=== PATIENT | female | born 1995 | race Caucasian/White ===

== ENCOUNTER 2023-04-14 09:17 | Day surgery (SDC) | payer MEDICAID, SELFPAY ==
[2023-04-14 09:39] VITALS: BP 115/80; PULSE 61; RESP 16; TEMP 36.6; O2SAT 96; BMI 41.1
[2023-04-14] MEDS: BUPIVACAINE 0.25% 10ML INJ 25 MG IJ (09:45)
[2023-04-14 09:46] VITALS: BP 123/79; PULSE 57; RESP 18; O2SAT 98
[2023-04-14] MEDS: LIDOCAINE 1% 5ML PF VIAL 5 ML (09:46)
[2023-04-14] MEDS: methylPREDNISolone ACETATE 80MG/ML VIAL 80 MG (09:46)
[2023-04-14 09:49] VITALS: BP 123/79; PULSE 57; RESP 18; O2SAT 98
[2023-04-14 10:00] VITALS: BP 107/57; PULSE 64; RESP 18; O2SAT 96
--- NOTE | 2023-04-14 10:21 | EXP.PAIN.PRO ---
Procedure Date: 04/14/23 Time: 09:30 Anesthesiologist:: Pascual Pandey CRNA Complications:: None Pre-procedure Diagnosis:: Chronic right elbow pain. Right lateral epicondylitis. Status post right lateral epicondylitis surgery 2020 Post-procedure Diagnosis:: Same. Indications for Procedure:: Patient is a pleasant 27-year-old female comes our clinic today for a right lateral epicondyle injection of cortisone, Marcaine, lidocaine. Patient has chronic pain over the right lateral epicondyle following right lateral tendon release 2020. Patient describes the pain as constant, dull, aching. Patient has good flexion, extension, right and left rotation of the forearm. Procedure Details:: Details of the procedure explained to the patient. The patient taken procedure and placed in sitting position. The area over the right lateral elbow was cleaned using chlorhexidine as a cleansing solution. Using a 25-gauge 1 inch needle the right lateral condyle was accessed at the point of most of the patient's pain. A solution containing 0.25% Marcaine +1% lidocaine and 40 mg of Depo-Medrol was injected after negative aspiration. Patient tolerated procedure without difficulty. There are no complications Plan and Disposition:: Patient was discharged without incident.
== END 2023-04-14 10:00 | disposition home or self-care (01) ==
PROVIDERS: PCP Emergency Medicine; Visit Provider Nurse Anesthetist, Certified Registered
DX: M77.11 Lateral epicondylitis, right elbow (principal); M25.521 Pain in right elbow; G89.29 Other chronic pain
CPT/HCPCS: 20551; J1040

== ENCOUNTER → 2023-05-01 09:00 | Outpatient (POV) | payer MEDICAID, SELFPAY ==
--- NOTE | 2023-05-01 09:25 | EXP.PAIN.SOA ---
[facility] Pain Management SOAP Note Subjective:: Patient is a pleasant 27-year-old female who presents today for follow-up right lateral epicondyle injection on 04/14/2023. We are currently treating the patient for chronic right elbow pain, right lateral epicondylitis, status post right lateral epicondylitis surgery. Today she rates her pain a 3 out of 10. Patient denies any new trauma or injury. She does state that she is had at least 50% improvement following this injection and feels like it still helping. Patient states she has been able to increase her activity with decreased pain symptoms and feels overall more functional. Patient does state that prior to this injection she had been dealing with this pain since she was a teenager. Patient states there was no specific trauma or injury that initially led to this. She states it was in and around 2020 when she went to the orthopedic doctor who did MRI with no acute findings. She states at that point then he did an EMG test that did show tendinitis and he did end up doing a elbow scope where he cleaned some of the tendon up and he did tell the patient at that time that the tendon was completely detached from the bone. Patient states in the past she is just use [id number] Tylenol and ibuprofen along with heat and ice and topicals with minimal relief. Patient is currently prescribed pregabalin 100 mg daily and [place] 10 mg 3 times a day from an outside provider. She denies any side effects from this medication. Her Shamar has been reviewed and is appropriate. Review of Systems: General: No recent weight changes, no fever, no sleep disturbances Respiratory: No cough, no shortness of air, no recurring pulmonary infections Cardiovascular/peripheral vascular: No chest pain, no palpitations, no edema, no shortness of breath Gastrointestinal: No new onset incontinence, normal bowel movements reported Genitourinary: No new onset incontinence Musculoskeletal: Right elbow pain Psychiatric: [Normal mood/affect] Neurological: [Denies weakness in extremities], [denies balance issues] Objective:: Physical Exam: General: Alert and oriented x3, no acute distress, pleasant and cooperative Lungs: Respirations even and unlabored, symmetrical chest expansion Eyes: PERRL Musculoskeletal: Flexion and extension of right elbow somewhat guarded secondary to pain, [antalgic gait noted] Neurological: Speech clear, no gross sensory deficit Assessment:: chronic right elbow pain, right lateral epicondylitis, status post right lateral epicondylitis surgery Plan:: Patient has had significant improvement following her right elbow injection and does not require any additional injection therapy. Will order the patient a compounded cream. Patient will return to clinic in 1 month for reevaluation of symptoms and plan of care. Patient has been instructed to contact the clinic with any concerns before the next appointment. Dr. Lindsey has reviewed this note and agrees with this plan of care. This note was dictated using voice recognition software and make contain errors or omissions. [facility] Disclaimer: The information contained in this section may have been updated after the patient was seen, as this information can be updated by other users. Medical History CRPS (complex regional pain syndrome type I) Diabetes Migraine Social History Smoking Status: Unknown if ever smoked alcohol intake: never current occupational status: other Travel in the last 8 weeks: None
[2023-05-01 10:02] VITALS: BP 124/72; PULSE 70; RESP 18; O2SAT 94; BMI 41.1
== END ==
LOC: SC.PAIN 09:01
PROVIDERS: Visit Provider Nurse Practitioner Family
DX: M25.521 Pain in right elbow (principal); G89.29 Other chronic pain; M77.11 Lateral epicondylitis, right elbow
CPT/HCPCS: 99212; G0463

== ENCOUNTER 2023-05-29 11:11 | Outpatient (POV) | payer MEDICAID, SELFPAY ==
[2023-05-29 11:14] VITALS: BP 178/86; PULSE 75; RESP 18; O2SAT 98; BMI 41.3
--- NOTE | 2023-05-29 11:24 | A.OFFVIS_ITS ---
[facility] Pain Management SOAP Note Subjective:: Patient is a pleasant 27-year-old female who presents today for follow-up. We are currently treating the patient for chronic right elbow pain, right lateral epicondylitis, status post right lateral epicondylitis surgery. Today she rates her pain a 6 out of 10. Patient denies any new injury or trauma. She states that she does feel like the prior injection that we did back at the very beginning of April is worn off. Patient states that she did start to experience more pain of an aching, throbbing sensation in this joint over the last week or so. She does state the pain interferes with her ability perform activities of daily living such as cooking and cleaning. Patient is interested in repeating her injection. She does also state that she does have chronic low back issues that she would like to talk about in future visits and see if we can help with that as well. Patient has tried and failed conservative therapy such as oral medication such as Tylenol and ibuprofen along with heat and ice and topicals. She does state that the compounded cream to be sent to her and at l ast visit did significantly help her symptoms. She states she has even been using this on her back. Patient is prescribed pregabalin and [place] from an outside provider. Her Shamar has been reviewed and is appropriate. Review of Systems: General: No recent weight changes, no fever, no sleep disturbances Respiratory: No cough, no shortness of air, no recurring pulmonary infections Cardiovascular/peripheral vascular: No chest pain, no palpitations, no edema, no shortness of breath Gastrointestinal: No new onset incontinence, normal bowel movements reported Genitourinary: No new onset incontinence Musculoskeletal: Right elbow pain, low back pain Psychiatric: [Normal mood/affect] Neurological: [Denies weakness in extremities], [denies balance issues] Objective:: Physical Exam: General: Alert and oriented x3, no acute distress, pleasant and cooperative Lungs: Respirations even and unlabored, symmetrical chest expansion Eyes: PERRL Musculoskeletal: Flexion and extension of right elbow somewhat guarded secondary to pain Neurological: Speech clear, no gross sensory deficit Assessment:: Right elbow pain, right lateral epicondylitis, status post right lateral epicondylitis surgery, low back pain Plan:: Patient is experiencing worsening pain in her right elbow with limited range of motion. Patient did previously have a lateral epicondyles injection that did provide 50% improvement lasting approximately a month and a half. I have disc ussed with the patient that she may benefit from a repeat injection. Risk and benefits were discussed with the patient and she would like to proceed forward with this plan of care. Patient has tried and failed conservative therapy for her right elbow. I also discussed with the patient in future we will look at her low back symptoms and evaluate if injection therapy may be beneficial. Patient will be scheduled for a right lateral epicondyle injection. Patient has been instructed to contact the clinic with any concerns before the next appointment. Dr. Lindsey has reviewed this note and agrees with this plan of care. This note was dictated using voice recognition software and make contain errors or omissions. [facility] Disclaimer: The information contained in this section may have been updated after the patient was seen, as this information can be updated by other users. Medical History Migraine Diabetes CRPS (complex regional pain syndrome type I) Social History (Updated 05/01/23 @ 09:29 by Ena Parsons APRN) Smoking Status: Unknown if ever smoked alcohol intake: never current occupational status: other Travel in the last 8 weeks: None
== END 2023-05-29 23:59 ==
LOC: SC.PAIN 11:12
PROVIDERS: Visit Provider Nurse Practitioner Family
DX: M77.11 Lateral epicondylitis, right elbow (principal); M25.521 Pain in right elbow; M54.50 Low back pain, unspecified
CPT/HCPCS: 99212; G0463

== ENCOUNTER 2023-06-23 09:04 | Day surgery (SDC) | payer MEDICAID, SELFPAY ==
[2023-06-23 09:26] VITALS: BP 139/74; PULSE 69; RESP 18; TEMP 36.8; O2SAT 99; BMI 41.1
[2023-06-23] MEDS: BUPIVACAINE 0.25% 10ML INJ 25 MG IJ (09:49)
[2023-06-23] MEDS: LIDOCAINE 1% 5ML PF VIAL 5 ML (09:49)
[2023-06-23] MEDS: methylPREDNISolone ACETATE 80MG/ML VIAL 80 MG (09:49)
[2023-06-23 09:50] VITALS: BP 114/70; PULSE 70; RESP 18; O2SAT 98
[2023-06-23 09:52] VITALS: BP 114/70; PULSE 69; RESP 18; O2SAT 98
[2023-06-23 10:00] VITALS: BP 130/84; PULSE 71; RESP 18; O2SAT 94
--- NOTE | 2023-06-23 10:00 | EXP.PAIN.PRO ---
Procedure Date: 06/23/23 Time: 09:50 Anesthesiologist:: Pascual Pandey CRNA Complications:: None Pre-procedure Diagnosis:: Right lateral epicondylitis. Chronic right lateral elbow pain. Post-procedure Diagnosis:: Same. Indications for Procedure:: Patient is a very pleasant 27-year-old female comes our clinic today for right lateral epicondylitis injection of lidocaine and steroid. Patient is status post 1 round of injections in the same area. She reports 2 to 3 weeks of significant improvement. After which time the pain returned. She rates her pain 6/10. Patient is also status post post right tendon release 2021. Procedure Details:: Details of the procedure explained to the patient. The patient taken procedure room placed in the sitting position. The area of the right lateral elbow was cleaned using chlorhexidine as a cleansing solution Using a 25-gauge inch and half needle the right lateral epicondyle was accessed with ease. This area was marked specifically by the patient in terms of where the elbow is most painful. After negative aspiration 6 cc of 1% lidocaine +40 mg of Depo-Medrol was injected. Patient tolerated procedure without difficulty. There are no complications. Plan and Disposition:: Patient was discharged without incident.
== END 2023-06-23 10:00 | disposition home or self-care (01) ==
PROVIDERS: Visit Provider Nurse Anesthetist, Certified Registered
DX: M77.11 Lateral epicondylitis, right elbow (principal); M25.521 Pain in right elbow; G89.29 Other chronic pain
CPT/HCPCS: 20605; J1010

== ENCOUNTER 2023-07-08 11:31 | Outpatient (POV) | payer MEDICAID, SELFPAY ==
[2023-07-08 11:41] VITALS: BP 126/71; PULSE 81; RESP 18; O2SAT 95; BMI 41.9
--- NOTE | 2023-07-08 12:10 | EXP.PAIN.SOA ---
[facility] Pain Management SOAP Note Subjective:: Patient is a pleasant 27-year-old female who presents today for follow-up of right lateral epicondylitis injection on 06/23/2023. Today she rates her pain a 6 out of 10. Patient states that she did have at least 70% improvement following this injection and it did last up until the last couple of days. Patient states while it was working she had significant improvement with increased function and decreased pain. Patient does state that her pain is back to her baseline today and states it is a aching, throbbing sensation that is worse with increased activity or ambulation. Patient has still been using her compounded cream with improvement. Patient does state that she would like to try for another injection because it did help so well. Patient states that her pain does interfere with her ability to perform activities of daily living such as cooking and cleaning. Patient has tried Tylenol and ibuprofen along with heat and ice and topicals with minimal improvement. Patient has also tried exercise and stretching with no additional relief. Patient is prescribed pregabalin and [place] from an outside provider. Her Shamar has been reviewed and is appropriate. Review of Systems: General: No recent weight changes, no fever, no sleep disturbances Respiratory: No cough, no shortness of air, no recurring pulmonary infections Cardiovascular/peripheral vascular: No chest pain, no palpitations, no edema, no shortness of breath Gastrointestinal: No new onset incontinence, normal bowel movements reported Genitourinary: No new onset incontinence Musculoskeletal: Right elbow pain Psychiatric: [Normal mood/affect] Neurological: [Denies weakness in extremities], [denies balance issues] Objective:: Physical Exam: General: Alert and oriented x3, no acute distress, pleasant and cooperative Lungs: Respirations even and unlabored, symmetrical chest expansion Eyes: PERRL Musculoskeletal: Flexion and extension of right elbow somewhat guarded secondary to pain Neurological: Speech clear, no gross sensory deficit Assessment:: Right elbow pain, right lateral epicondylitis, status post right lateral epicondylitis surgery, low back pain Plan:: Patient is experiencing worsening pain with limited range of motion of her right elbow. Patient did get 70% relief with her last injection for this pain that did last for 2 weeks. I have discussed with patient that she may benefit from repeat right lateral epicondylitis injection. Risk and benefits were discussed with the patient and she would like to proceed forward with this plan of care. We will schedule the patient for a repeat right lateral epicondylitis injection. Patient has been instructed to contact the clinic with any concerns before the next appointment. Dr. Lindsey has reviewed this note and agrees with this plan of care. This note was dictated using voice recognition software and make contain errors or omissions. [facility] Disclaimer: The information contained in this section may have been updated after the patient was seen, as this information can be updated by other users. Medical History Migraine Diabetes CRPS (complex regional pain syndrome type I) Social History Smoking Status: Unknown if ever smoked alcohol intake: never current occupational status: other Travel in the last 8 weeks: None
== END 2023-07-08 23:59 | disposition home or self-care (01) ==
LOC: SC.PAIN 11:31
PROVIDERS: Visit Provider Nurse Practitioner Family
DX: M77.11 Lateral epicondylitis, right elbow (principal); M25.521 Pain in right elbow; M54.50 Low back pain, unspecified
CPT/HCPCS: 99212; G0463

== ENCOUNTER 2023-08-11 12:28 | Day surgery (SDC) | payer MEDICAID, SELFPAY ==
[2023-08-11 13:15] VITALS: BP 129/74; PULSE 64; RESP 18; O2SAT 97; BMI 41.8
[2023-08-11] MEDS: LIDOCAINE 1% 5ML PF VIAL 5 ML (13:22)
[2023-08-11] MEDS: methylPREDNISolone ACETATE 80MG/ML VIAL 80 MG (13:22)
[2023-08-11] MEDS: BUPIVACAINE 0.25% 10ML INJ 25 MG IJ (13:22)
[2023-08-11 13:23] VITALS: BP 114/76; PULSE 68; RESP 18; O2SAT 98
[2023-08-11 13:25] VITALS: BP 114/76; PULSE 68; RESP 18; O2SAT 98
--- NOTE | 2023-08-11 13:29 | EXP.PAIN.PRO ---
Procedure Date: 08/11/23 Time: 13:10 Anesthesiologist:: Pascual Pandey CRNA Complications:: None Pre-procedure Diagnosis:: Chronic right lateral epicondylitis. Post-procedure Diagnosis:: Same. Indications for Procedure:: Patient is a very pleasant 28-year-old female comes our clinic today for repeat right epicondylitis injection of cortisone and numbing medicine. Patient describes right lateral elbow pain is constant, dull, aching. She had significant improvement in terms of her right elbow pain after her last injection in the same location. She describes the right lateral elbow pain is constant, dull, aching. This pain affects her gastroenterologist in the right hand. She rates her pain 7/10. Procedure Details:: Details of the procedure explained to the patient. The patient taken procedure room placed in the sitting position. The area of the right lateral elbow was cleaned using chlorhexidine as a cleansing solution Using a 25-gauge inch and half needle the right lateral epicondyle was accessed with ease. This area was marked specifically by the patient in terms of where the elbow is most painful. After negative aspiration 6 cc of 1% lidocaine +40 mg of Depo-Medrol was injected. Patient tolerated procedure without difficulty. There are no complications. Plan and Disposition:: Patient was discharged without incident.
[2023-08-11 13:30] VITALS: BP 124/83; PULSE 68; RESP 18; O2SAT 97
== END 2023-08-11 13:32 | disposition home or self-care (01) ==
PROVIDERS: PCP Emergency Medicine; Visit Provider Nurse Anesthetist, Certified Registered
DX: M77.11 Lateral epicondylitis, right elbow (principal)
CPT/HCPCS: 20551; J1010

== ENCOUNTER 2023-09-24 14:04 | Outpatient (POV) | payer MEDICAID, SELFPAY ==
[2023-09-24 14:29] VITALS: BP 125/72; PULSE 63; RESP 18; O2SAT 100; BMI 41.0
--- NOTE | 2023-09-24 14:49 | A.OFFVIS_ITS ---
[facility] Disclaimer: The information contained in this section may have been updated after the patient was seen, as this information can be updated by other users. Medical History (Updated 09/24/23 @ 14:51 by Ena Parsons APRN) Migraine Diabetes CRPS (complex regional pain syndrome type I) Social History Smoking Status: Unknown if ever smoked alcohol intake: never current occupational status: other Travel in the last 8 weeks: None PM Subjective & Objective Subjective Subjective:: Patient is a pleasant 28-year-old female who presents today for follow-up of right epicondylitis injection on 08/11/2023. Today she rates her pain a 3 out of 10. She states she has had at least 70% improvement following this injection and feels like it still continue to provide additional relief. She states she is able to increase her activity with overall decreased pain. Patient does state that she is still having chronic low back pain and would like to see about ordering updated imaging. Patient states the pain is fairly constant and does interfere with her ability to perform activities of daily living. Patient does state that she is in the final processes of getting a gastric sleeve surgery. She states that they are thinking about getting it done in November and that she has her last 1 year and coming up. Her Shamar has been reviewed and is appropriate. Review of Systems: General: No recent weight changes, no fever, no sleep disturbances Respiratory: No cough, no shortness of air, no recurring pulmonary infections Cardiovascular/peripheral vascular: No chest pain, no palpitations, no edema, no shortness of breath Gastrointestinal: No new onset incontinence, normal bowel movements reported Genitourinary: No new onset incontinence Musculoskeletal: Low back pain Psychiatric: [Normal mood/affect] Neurological: [Denies weakness in extremities], [denies balance issues] Pain at rest (0-10 scale): 3 Objective Objective:: Physical Exam: General: Alert and oriented x3, no acute distress, pleasant and cooperative Lungs: Respirations even and unlabored, symmetrical chest expansion Eyes: PERRL Musculoskeletal: Flexion and extension of lumbar [spine] somewhat guarded secondary to pain, [antalgic gait noted] Neurological: Speech clear, no gross sensory deficit Has patient had previous pain injection?: Yes Percent improvement in pain since last injection: 70% Conservative treatment options previously tried: Home exercise plan Length of treatment: Longer than 6 weeks Meds Home Medications and Allergies Home Medications Medication Instructions Recorded Confirmed Type albuterol sulfate 2.5 mg/3 mL 2.5 mg inhalation DAILY PRN SOB 04/06/23 09/24/23 History (0.083 %) solution for nebulization albuterol sulfate 90 mcg/actuation 2 puff inhalation QID 04/06/23 09/24/23 History aerosol inhaler (Ventolin HFA) budesonide-formoterol HFA 160 2 puff inhalation BID 04/06/23 09/24/23 History mcg-4.5 mcg/actuation aerosol inhaler (Symbicort) bupropion HCl 100 mg tablet,12 hr 100 mg PO DAILY 04/06/23 09/24/23 History sustained-release cyclobenzaprine 10 mg tablet 10 mg PO TID 04/06/23 09/24/23 History desvenlafaxine succinate 50 mg 50 mg PO DAILY 04/06/23 09/24/23 History tablet,extended release 24 hr hydrocodone 5 mg-acetaminophen 325 1 tab PO Q4H PRN Pain 04/06/23 09/24/23 History mg tablet hydroxyzine HCl 50 mg tablet 50 mg PO HS 04/06/23 09/24/23 History ibuprofen 400 mg tablet 400 mg PO TIDP PRN Pain 04/06/23 09/24/23 History levocetirizine 5 mg tablet 5 mg PO DAILY 04/06/23 09/24/23 History metformin 500 mg tablet 500 mg PO QID 04/06/23 09/24/23 History methenamine mandelate 1 gram tablet 1 g PO BID 04/06/23 09/24/23 History omeprazole 40 mg capsule,delayed 40 mg PO BID 04/06/23 09/24/23 History release ondansetron 4 mg disintegrating 4 mg PO Q6H PRN Nausea 04/06/23 09/24/23 History tablet pregabalin 100 mg capsule 100 mg PO DAILY 04/06/23 09/24/23 History pregabalin 150 mg capsule 150 mg PO DAILY 04/06/23 09/24/23 History pregabalin 200 mg capsule 200 mg PO HS 04/06/23 09/24/23 History propranolol 10 mg tablet 10 mg PO BID 04/06/23 09/24/23 History tiotropium bromide 1.25 2 puff inhalation BID 04/06/23 09/24/23 History mcg/actuation mist for inhalation topiramate 100 mg tablet 100 mg PO DAILY 04/06/23 09/24/23 History New Prescriptions to Start Prescriptions: Allergies Allergy/AdvReac Type Severity Reaction Status Date / Time amoxicillin AdvReac Vomiting Verified 06/09/23 13:01 ampicillin AdvReac Verified 06/09/23 13:01 clarithromycin AdvReac Vomiting Verified 06/09/23 13:01 clavulanic acid AdvReac Vomiting Verified 06/09/23 13:01 erythromycin base AdvReac Verified 06/09/23 13:01 potassium AdvReac Vomiting Verified 06/09/23 13:01 sulfamethoxazole AdvReac Verified 06/09/23 13:01 Assessment and Plan *Assessment and plan (1) Low back pain: Status: Acute Qualifiers: Chronicity: chronic Back pain laterality: bilateral Sciatica presence: without sciatica Qualified Code(s): M54.50 - Low back pain, unspecified; G89.29 - Other chronic pain Category: Medical Code(s): M54.50 - Low back pain, unspecified Plan Patient has had significant improvement following her elbow injection and does not require any additional injection therapy at this time. I will order x-ray imaging as well as MRI without contrast of her lumbar spine to follow. Patient will return to clinic in 1 month for reevaluation of symptoms and plan of care. Patient has been instructed to contact the clinic with any concerns before the next appointment. Dr. Lindsey has reviewed this note and agrees with this plan of care. This note was dictated using voice recognition software and make contain errors or omissions.
--- NOTE | 2023-09-24 14:56 | XR_ITS ---
FINAL REPORT CLINICAL HISTORY: LBP FINDINGS: AP, lateral, and oblique views of the lumbar spine were obtained. There is no acute fracture or acute malalignment. Vertebral body height is preserved. No acute paraspinal abnormality is identified. IMPRESSION: No acute osseous abnormalities lumbar spine. Reviewed, Interpreted and Dictated by Estephania Rodrigez MD Transcribed by Libby Suarez Authenticated and [facility]
== END 2023-09-24 23:59 | disposition home or self-care (01) ==
LOC: SC.PAIN 14:49 → RAD 14:51
PROVIDERS: Visit Provider Nurse Practitioner Family
DX: M54.50 Low back pain, unspecified (principal); G89.29 Other chronic pain
CPT/HCPCS: 72110; 99212; G0463

== ENCOUNTER 2023-12-03 12:50 | Outpatient (POV) | payer MEDICAID, SELFPAY ==
[2023-12-03 13:23] VITALS: BP 116/70; PULSE 68; RESP 18; O2SAT 97; BMI 40.6
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
== END 2023-12-03 23:59 | disposition home or self-care (01) ==
LOC: SC.PAIN 12:51
PROVIDERS: Visit Provider Nurse Practitioner Family
DX: M46.1 Sacroiliitis, not elsewhere classified (principal); Z73.89 Other problems related to life management difficulty; Z79.899 Other long term (current) drug therapy
CPT/HCPCS: 99212; G0463

== ENCOUNTER 2023-12-29 09:38 | Day surgery (SDC) | payer MEDICAID, SELFPAY ==
[2023-12-29 10:09] VITALS: BMI 39.4
[2023-12-29 10:21] LABS: Urine Pregnancy, HCG Qual. Negative (Negative)
[2023-12-29 10:26] VITALS: BP 104/68; PULSE 74; RESP 16; TEMP 36.7; O2SAT 95; BMI 39.4
[2023-12-29] MEDS: LIDOCAINE 1% 5ML PF VIAL 5 ML (10:42)
[2023-12-29] MEDS: methylPREDNISolone ACETATE 80MG/ML VIAL 80 MG (10:42)
[2023-12-29] MEDS: BUPIVACAINE 0.25% 10ML INJ 25 MG IJ (10:42)
--- NOTE | 2023-12-29 10:54 | P.PCN_ITS ---
Procedure Date: 12/29/23 Time: 10:40 Anesthesiologist:: Pascual Pandey CRNA Complications:: None Pre-procedure Diagnosis:: Bilateral sacroiliitis Post-procedure Diagnosis:: Same Indications for Procedure:: Patient is a very pleasant 28-year-old female comes our clinic today for bilateral sacroiliac joint injections of cortisone and local anesthetic. Patient describes low lumbar back pain off the midline bilaterally. Bilateral posterior hip pain. Difficulty transitioning from sitting to standing. Difficulty with ambulation. Difficulty with sitting for any length of time. She rates her pain 8/10. Procedure Details:: Procedure: Bilateral sacroiliac joint injections under fluoroscopy Informed consent was obtained and the risks and benefits of the procedure were explained to the patient.~ The patient was taken to the procedure room and noninvasive monitors were placed including a noninvasive blood pressure cuff and pulse oximeter.~ The patient was placed prone on the procedure table. Both hips were cleansed using Betadine as a cleansing solution. C-arm fluoroscopy was used to view the right sacroiliac joint.~ The skin and subcutaneous tissues were anesthetized using lidocaine 1.5% and a 25-gauge needle.~ After this, a 22-gauge spinal needle was inserted under fluoroscopic guidance into the inferior aspect of the right sacroiliac joint.~ Omnipaque dye was injected and good spread was seen throughout the joint.~ After this, approximately 5 mL of bupivacaine, 0.25% and Depo-Medrol, 40 mg was incrementally injected into the right sacroiliac joint. We then moved to the left sacroiliac joint.~ The skin and subcutaneous tissues were anesthetized using lidocaine 1.5% and a 25-gauge needle.~ After this, a 22- gauge spinal needle was inserted under fluoroscopic guidance into the inferior aspect of the left sacroiliac joint.~ Omnipaque dye was injected and good spread was seen throughout the joint. After this, approximately 5 mL of bupivacaine, 0.25% and Depo-Medrol, 40 mg was incrementally injected into the left sacroiliac joint.~ The patient tolerated the procedure well with no complications. The patient was observed in the Pain Clinic and then was discharged home neurologically intact. Plan and Disposition:: Patient was discharged without incident.
[2023-12-29 11:02] VITALS: BP 102/65; PULSE 63; RESP 16; O2SAT 96
== END 2023-12-29 11:02 | disposition home or self-care (01) ==
PROVIDERS: Visit Provider Nurse Anesthetist, Certified Registered
DX: M46.1 Sacroiliitis, not elsewhere classified (principal)
CPT/HCPCS: 27096; 81025; G0260; J1010

== ENCOUNTER 2024-01-13 14:52 | Outpatient (POV) | payer MEDICAID, SELFPAY ==
[2024-01-13 15:16] VITALS: BP 115/67; PULSE 68; RESP 16; O2SAT 98; BMI 38.7
--- NOTE | 2024-01-13 15:50 | A.OFFVIS_ITS ---
[facility] Disclaimer: The information contained in this section may have been updated after the patient was seen, as this information can be updated by other users. Medical History (Updated 01/13/24 @ 15:52 by Ena Parsons APRN) Migraine Diabetes CRPS (complex regional pain syndrome type I) Social History Smoking Status: Unknown if ever smoked alcohol intake: never current occupational status: other Travel in the last 8 weeks: None PM Subjective & Objective Subjective Subjective:: Patient is a pleasant 28-year-old female who presents today for follow-up of bilateral SI injections on 12/29/2023. Today she rates her pain a 3 out of 10 however states that her pain will go up to at least a 5 out of 10 or 10 when it is severe. Patient denies any new falls or injuries from our last visit. She does state that the injections did not seem to really help. She states that she still has significant soreness following this and may have even made her symptoms worse. Patient does state that she is starting to experience more weakness into her bilateral lower extremities. She does describe it as an aching, throbbing sensation with some numbness and tingling. Patient does state the pain is interfering with her ability perform activities of daily living such as cooking and cleaning. Patient is interested in additional injection therapy if possible. Patient does currently use pregabalin along with [place] from an outside provider. Patient is currently managed on Flexeril however states that this only helps make her sleepy. Patient does have a history of altered kidney function and cannot tolerate NSAIDs. Her Shamar has been reviewed and is appropriate. Review of Systems: General: No recent weight changes, no fever, no sleep disturbances Respiratory: No cough, no shortness of air, no recurring pulmonary infections Cardiovascular/peripheral vascular: No chest pain, no palpitations, no edema, no shortness of breath Gastrointestinal: No new onset incontinence, normal bowel movements reported Genitourinary: No new onset incontinence Musculoskeletal: Low back pain, bilateral leg weakness Psychiatric: [Normal mood/affect] Neurological: [Denies weakness in extremities], [denies balance issues] Pain at rest (0-10 scale): 5 Objective Objective:: Physical Exam: General: Alert and oriented x3, no acute distress, pleasant and cooperative Lungs: Respirations even and unlabored, symmetrical chest expansion Eyes: PERRL Musculoskeletal: Flexion and extension of lumbar [spine] somewhat guarded secondary to pain, [antalgic gait noted] positive leg raise Neurological: Speech clear, no gross sensory deficit Has patient had previous pain injection?: Yes Percent improvement in pain since last injection: Minimal Conservative treatment options previously tried: Home exercise plan Length of treatment: Longer than 12 weeks Meds Home Medications and Allergies Home Medications ?Medication ?Instructions ?Recorded ?Confirmed ?Type albuterol sulfate 2.5 mg/3 mL 2.5 mg inhalation DAILY PRN SOB 04/06/23 01/13/24 History (0.083 %) solution for nebulization albuterol sulfate 90 mcg/actuation 2 puff inhalation QID 04/06/23 01/13/24 History aerosol inhaler (Ventolin HFA) budesonide-formoterol HFA 160 2 puff inhalation BID 04/06/23 01/13/24 History mcg-4.5 mcg/actuation aerosol inhaler (Symbicort) bupropion HCl 100 mg tablet,12 hr 100 mg PO DAILY 04/06/23 01/13/24 History sustained-release cyclobenzaprine 10 mg tablet 10 mg PO TID 04/06/23 01/13/24 History desvenlafaxine succinate 50 mg 50 mg PO DAILY 04/06/23 01/13/24 History tablet,extended release 24 hr hydrocodone 5 mg-acetaminophen 325 1 tab PO Q4H PRN Pain 04/06/23 01/13/24 History mg tablet hydroxyzine HCl 50 mg tablet 50 mg PO HS 04/06/23 01/13/24 History ibuprofen 400 mg tablet 400 mg PO TIDP PRN Pain 04/06/23 01/13/24 History levocetirizine 5 mg tablet 5 mg PO DAILY 04/06/23 01/13/24 History metformin 500 mg tablet 500 mg PO QID 04/06/23 01/13/24 History methenamine mandelate 1 gram tablet 1 g PO BID 04/06/23 01/13/24 History omeprazole 40 mg capsule,delayed 40 mg PO BID 04/06/23 01/13/24 History release ondansetron 4 mg disintegrating 4 mg PO Q6H PRN Nausea 04/06/23 01/13/24 History tablet pregabalin 100 mg capsule 100 mg PO DAILY 04/06/23 01/13/24 History pregabalin 150 mg capsule 150 mg PO DAILY 04/06/23 01/13/24 History pregabalin 200 mg capsule 200 mg PO HS 04/06/23 01/13/24 History propranolol 10 mg tablet 10 mg PO BID 04/06/23 01/13/24 History tiotropium bromide 1.25 2 puff inhalation BID 04/06/23 01/13/24 History mcg/actuation mist for inhalation topiramate 100 mg tablet 100 mg PO DAILY 04/06/23 01/13/24 History New Prescriptions to Start Prescriptions: Allergies Allergy/AdvReac Type Severity Reaction Status Date / Time amoxicillin AdvReac Vomiting Verified 06/09/23 13:01 ampicillin AdvReac Verified 06/09/23 13:01 clarithromycin AdvReac Vomiting Verified 06/09/23 13:01 clavulanic acid AdvReac Vomiting Verified 06/09/23 13:01 erythromycin base AdvReac Verified 06/09/23 13:01 potassium AdvReac Vomiting Verified 06/09/23 13:01 sulfamethoxazole AdvReac Verified 06/09/23 13:01 Assessment and Plan *Assessment and plan (1) Bilateral leg weakness: Status: Acute Category: Medical Code(s): R29.898 - Other symptoms and signs involving the musculoskeletal system (2) Lumbar radiculopathy: Status: Acute Category: Medical Code(s): M54.16 - Radiculopathy, lumbar region (3) Low back pain: Status: Acute Qualifiers: Chronicity: chronic Back pain laterality: bilateral Sciatica presence: without sciatica Qualified Code(s): M54.50 - Low back pain, unspecified; G89.29 - Other chronic pain Category: Medical Code(s): M54.50 - Low back pain, unspecified Plan Patient is experiencing worsening pain in her low back with bilateral leg weakness and some numbness and tingling. Patient did have limited range of motion of her lumbar spine with positive leg raise during today's exam. I did discuss with the patient that she may benefit from lumbar epidural steroid injection. Risk and benefits were discussed with patient and she would like to proceed forward with this plan of care. Patient is not on any current blood thinners. Patient has tried and failed conservative therapy including continued at home stretching exercise for longer than 12 weeks. I will send in a 2-week supply of baclofen 10 mg 3 times daily. Patient was counseled to discontinue her Flexeril while taking this medication. Patient will be scheduled for an LESI L4-L5 under fluoroscopy. Patient has been instructed to contact the clinic with any concerns before the next appointment. Dr. Lindsey has reviewed this note and agrees with this plan of care. This note was dictated using voice recognition software and make contain errors or omissions. All injections are used with Lidocaine or Bupivacaine and Depo Medrol.
== END 2024-01-13 23:59 | disposition home or self-care (01) ==
PROVIDERS: PCP Emergency Medicine; Visit Provider Nurse Practitioner Family
DX: R29.898 Other symptoms and signs involving the musculoskeletal system (principal); M54.16 Radiculopathy, lumbar region; M54.50 Low back pain, unspecified; G89.29 Other chronic pain; Z73.89 Other problems related to life management difficulty; Z79.899 Other long term (current) drug therapy
CPT/HCPCS: 99212; G0463

== ENCOUNTER 2024-02-09 11:20 | Day surgery (SDC) | payer MEDICAID, SELFPAY ==
[2024-02-09 11:39] VITALS: BP 114/67; PULSE 64; RESP 16; TEMP 36.6; O2SAT 95; BMI 37.5
[2024-02-09 11:45] LABS: POC Glucose,Bedside 92 (70-110)
[2024-02-09] MEDS: methylPREDNISolone ACETATE 80MG/ML VIAL 80 MG (11:50)
--- NOTE | 2024-02-09 11:53 | EXP.PAIN.PRO ---
Procedure Date: 02/09/24 Time: 11:40 Anesthesiologist:: Pascual Pandey CRNA Complications:: None Pre-procedure Diagnosis:: Degenerative disc lumbar spine multilevels. Lumbar radiculopathy. Post-procedure Diagnosis:: Same. Indications for Procedure:: Patient is a pleasant 28-year-old female comes our clinic today for lumbar epidural steroid injection at the L4-5 level. Patient describes low lumbar back pain as constant, dull, aching. Patient also reports bilateral hip and leg radicular symptoms. She rates her pain 5/10. Procedure Details:: Procedure: Lumbar epidural steroid injection under fluoroscopy Informed consent was obtained and the risks and benefits of the procedure were explained to the patient. The patient was taken to the procedure room and noninvasive monitors placed, including noninvasive blood pressure cuff and pulse oximeter. The back was viewed using C-arm Fluoroscopy and prepped using Chloraprep as a cleansing solution and the L4-L5 interspace was palpated. Skin and subcutaneous tissues were anesthetized using lidocaine 1.5% and a 25-gauge needle. After this, an 18-gauge Touhy epidural needle was placed into the L4-L5 interspace and advanced using fluoroscopic guidance and loss of resistance to air until the epidural space was encountered. After confirmation of needle placement in the epidural space, with dye, a solution containing normal saline, 3 mL and Depo-Medrol 80 mg were incrementally injected into the lumbar epidural space. The patient tolerated the procedure well with no complications. The patient was observed in the Pain Clinic and then discharged home neurologically intact. Plan and Disposition:: Patient was discharged without incident.
[2024-02-09 11:55] VITALS: BP 118/66; PULSE 64; RESP 16; O2SAT 100
== END 2024-02-09 11:55 | disposition home or self-care (01) ==
PROVIDERS: PCP Emergency Medicine; Visit Provider Nurse Anesthetist, Certified Registered
DX: M51.16 Intervertebral disc disorders with radiculopathy, lumbar region (principal)
CPT/HCPCS: 62323; 82962; J1010

== ENCOUNTER 2024-03-24 13:51 | Outpatient (POV) | payer MEDICAID, SELFPAY ==
[2024-03-24 14:07] VITALS: BP 112/71; PULSE 66; RESP 18; O2SAT 97; BMI 38.0
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
== END 2024-03-24 23:59 | disposition home or self-care (01) ==
PROVIDERS: PCP Emergency Medicine; Visit Provider Nurse Practitioner Family
DX: M54.16 Radiculopathy, lumbar region (principal); M54.50 Low back pain, unspecified; G89.29 Other chronic pain; M54.2 Cervicalgia; Z73.89 Other problems related to life management difficulty; Z79.899 Other long term (current) drug therapy
CPT/HCPCS: 99212; G0463

== ENCOUNTER 2024-05-05 14:29 | Outpatient (POV) | payer MEDICAID, SELFPAY ==
--- NOTE | 2024-05-05 14:50 | A.OFFVIS_ITS ---
[facility] Disclaimer: The information contained in this section may have been updated after the patient was seen, as this information can be updated by other users. Medical History (Updated 03/24/24 @ 14:20 by Ena Parsons APRN) Migraine Diabetes CRPS (complex regional pain syndrome type I) Social History Smoking Status: Unknown if ever smoked alcohol intake: never current occupational status: other Travel in the last 8 weeks: None PM Subjective & Objective Subjective Subjective:: Patient is a pleasant 28-year-old female who presents today for follow-up. Today she rates her pain a 5 out of 10. She denies any new trauma or injury. She does state that the methocarbamol that we sent in at her last visit did seem to help some and denies any side effects. Patient was sent methocarbamol 500 mg 3 times a day. Patient would like refills. Patient was also submitted for a MRI of her lumbar spine however was denied due to not having any recent physical therapy. We did send in a new order of physical therapy however she states when she called down there they said they would call her back and she has not heard back. Patient is still using her compounded cream. She states this continues to help. Patient did have a lumbar epidural of L4-L5 back in February that did provide significant relief of at least 50% and she states that it is just now starting to come back however feels like it is still manageable. Her Shamar has been reviewed and is appropriate. Review of Systems: General: No recent weight changes, no fever, no sleep disturbances Respiratory: No cough, no shortness of air, no recurring pulmonary infections Cardiovascular/peripheral vascular: No chest pain, no palpitations, no edema, no shortness of breath Gastrointestinal: No new onset incontinence, normal bowel movements reported Genitourinary: No new onset incontinence Musculoskeletal: Low back pain, neck pain Psychiatric: [Normal mood/affect] Neurological: [Denies weakness in extremities], [denies balance issues] Pain at rest (0-10 scale): 5 Objective Objective:: Physical Exam: General: Alert and oriented x3, no acute distress, pleasant and cooperative Lungs: Respirations even and unlabored, symmetrical chest expansion Eyes: PERRL Musculoskeletal: Flexion and extension of lumbar [spine] somewhat guarded secondary to pain, [antalgic gait noted] Neurological: Speech clear, no gross sensory deficit Has patient had previous pain injection?: No Conservative treatment options previously tried: Home exercise plan Length of treatment: Longer than 12-week Meds Home Medications and Allergies Home Medications ?Medication ?Instructions ?Recorded ?Confirmed ?Type albuterol sulfate 2.5 mg/3 mL 2.5 mg inhalation DAILY PRN SOB 04/06/23 03/24/24 History (0.083 %) solution for nebulization albuterol sulfate 90 mcg/actuation 2 puff inhalation QID 04/06/23 03/24/24 History aerosol inhaler (Ventolin HFA) budesonide-formoterol HFA 160 2 puff inhalation BID 04/06/23 03/24/24 History mcg-4.5 mcg/actuation aerosol inhaler (Symbicort) bupropion HCl 100 mg tablet,12 hr 100 mg PO DAILY 04/06/23 03/24/24 History sustained-release cyclobenzaprine 10 mg tablet 10 mg PO TID 04/06/23 03/24/24 History desvenlafaxine succinate 50 mg 50 mg PO DAILY 04/06/23 03/24/24 History tablet,extended release 24 hr hydrocodone 5 mg-acetaminophen 325 1 tab PO Q4H PRN Pain 04/06/23 03/24/24 History mg tablet hydroxyzine HCl 50 mg tablet 50 mg PO HS 04/06/23 03/24/24 History ibuprofen 400 mg tablet 400 mg PO TIDP PRN Pain 04/06/23 03/24/24 History levocetirizine 5 mg tablet 5 mg PO DAILY 04/06/23 03/24/24 History metformin 500 mg tablet 500 mg PO QID 04/06/23 03/24/24 History methenamine mandelate 1 gram tablet 1 g PO BID 04/06/23 03/24/24 History omeprazole 40 mg capsule,delayed 40 mg PO BID 04/06/23 03/24/24 History release ondansetron 4 mg disintegrating 4 mg PO Q6H PRN Nausea 04/06/23 03/24/24 History tablet pregabalin 100 mg capsule 100 mg PO DAILY 04/06/23 03/24/24 History pregabalin 150 mg capsule 150 mg PO DAILY 04/06/23 03/24/24 History pregabalin 200 mg capsule 200 mg PO HS 04/06/23 03/24/24 History propranolol 10 mg tablet 10 mg PO BID 04/06/23 03/24/24 History tiotropium bromide 1.25 2 puff inhalation BID 04/06/23 03/24/24 History mcg/actuation mist for inhalation topiramate 100 mg tablet 100 mg PO DAILY 04/06/23 03/24/24 History baclofen 10 mg tablet See Rx Instructions .Route 02/11/24 03/24/24 Rx .COMPLEX #90 tabs methocarbamol 500 mg tablet 500 mg PO TID #42 tabs 03/24/24 Rx New Prescriptions to Start Prescriptions: Allergies Allergy/AdvReac Type Severity Reaction Status Date / Time amoxicillin AdvReac Vomiting Verified 06/09/23 13:01 ampicillin AdvReac Verified 06/09/23 13:01 clarithromycin AdvReac Vomiting Verified 06/09/23 13:01 clavulanic acid AdvReac Vomiting Verified 06/09/23 13:01 erythromycin base AdvReac Verified 06/09/23 13:01 potassium AdvReac Vomiting Verified 06/09/23 13:01 sulfamethoxazole AdvReac Verified 06/09/23 13:01 Assessment and Plan *Assessment and plan (1) Low back pain: Status: Acute Qualifiers: Chronicity: chronic Back pain laterality: bilateral Sciatica presence: without sciatica Qualified Code(s): M54.50 - Low back pain, unspecified; G89.29 - Other chronic pain Category: Medical Code(s): M54.50 - Low back pain, unspecified (2) Bilateral sacroiliitis: Status: Acute Category: Medical Code(s): M46.1 - Sacroiliitis, not elsewhere classified (3) Bilateral leg weakness: Status: Acute Category: Medical Code(s): R29.898 - Other symptoms and signs involving the musculoskeletal system (4) Lumbar radiculopathy: Status: Acute Category: Medical Code(s): M54.16 - Radiculopathy, lumbar region (5) Neck pain: Status: Acute Category: Medical Code(s): M54.2 - Cervicalgia Plan I will refill the patient's methocarbamol and provide a 1 month supply of this medication. Patient will return to clinic in 1 month. We will reach out to the physical therapy office and confirm that they did get our order for evaluation of her low back and leg pain. Patient has been instructed to contact the clinic with any concerns before the next appointment. Dr. Lindsey has reviewed this note and agrees with this plan of care. This note was dictated using voice recognition software and make contain errors or omissions. All injections are used with Lidocaine, Bupivacaine and Depo Medrol. Occasionally urine drug screen is needed to verify patient's compliance with our office pain contract. This is ordered based off specific treatments related to chronic pain with the potential to abuse certain medications.
[2024-05-05 15:13] VITALS: BP 143/79; PULSE 83; RESP 14; O2SAT 98; BMI 37.4
== END 2024-05-05 23:59 | disposition home or self-care (01) ==
PROVIDERS: Visit Provider Nurse Practitioner Family
DX: M54.50 Low back pain, unspecified (principal); G89.29 Other chronic pain; M46.1 Sacroiliitis, not elsewhere classified; R29.898 Other symptoms and signs involving the musculoskeletal system; M54.16 Radiculopathy, lumbar region; M54.2 Cervicalgia; Z79.899 Other long term (current) drug therapy
CPT/HCPCS: 99212; G0463

== ENCOUNTER 2024-06-02 10:39 | Outpatient (POV) | payer MEDICAID, SELFPAY ==
[2024-06-02 10:50] VITALS: BP 135/81; PULSE 82; RESP 16; O2SAT 99; BMI 16.0
--- NOTE | 2024-06-02 11:32 | EXP.PAIN.SOA ---
[facility] Disclaimer: The information contained in this section may have been updated after the patient was seen, as this information can be updated by other users. Medical History Migraine Diabetes CRPS (complex regional pain syndrome type I) Social History Smoking Status: Unknown if ever smoked alcohol intake: never current occupational status: other Travel in the last 8 weeks: None PM Subjective & Objective Subjective Subjective:: Patient is a pleasant 28-year-old female who presents today for worsening pain. She rates her pain an 8 out of 10. Patient denies any new falls or injuries. She does state it is still the same pain she has been having over the years. She states is all in her low back that does radiate down into her bilateral lower extremities. Patient did previously have a lumbar epidural back in February that did provide 50% improvement and has done overall well up until now. Patient does state the pain is interfering with her ability to perform activities of daily living and would like to see about additional injections. Patient has continued conservative therapy. Patient did just recently have updated cervical MRI however is still wanting to proceed forward with the lumbar MRI however this was denied due to not having updated physical therapy. We have ordered this intervention however she states today she is still not gotten a phone call from the physical therapy there and [facility] work. Patient is asking if we have any additional recommendations for this. Her Shamar has been reviewed and is appropriate. Review of Systems: General: No recent weight changes, no fever, no sleep disturbances Respiratory: No cough, no shortness of air, no recurring pulmonary infections Cardiovascular/peripheral vascular: No chest pain, no palpitations, no edema, no shortness of breath Gastrointestinal: No new onset incontinence, normal bowel movements reported Genitourinary: No new onset incontinence Musculoskeletal: Low back pain, bilateral leg pain Psychiatric: [Normal mood/affect] Neurological: [Denies weakness in extremities], [denies balance issues] Pain at rest (0-10 scale): 8 Objective Objective:: Physical Exam: General: Alert and oriented x3, no acute distress, pleasant and cooperative Lungs: Respirations even and unlabored, symmetrical chest expansion Eyes: PERRL Musculoskeletal: Flexion and extension of lumbar [spine] somewhat guarded secondary to pain, [antalgic gait noted] positive leg raise Neurological: Speech clear, no gross sensory deficit Has patient had previous pain injection?: No Conservative treatment options previously tried: Home exercise plan Length of treatment: Longer than 12 weeks Meds Home Medications and Allergies Home Medications ?Medication ?Instructions ?Recorded ?Confirmed ?Type albuterol sulfate 2.5 mg/3 mL 2.5 mg inhalation DAILY PRN SOB 04/06/23 06/02/24 History (0.083 %) solution for nebulization albuterol sulfate 90 mcg/actuation 2 puff inhalation QID 04/06/23 06/02/24 History aerosol inhaler (Ventolin HFA) budesonide-formoterol HFA 160 2 puff inhalation BID 04/06/23 06/02/24 History mcg-4.5 mcg/actuation aerosol inhaler (Symbicort) bupropion HCl 100 mg tablet,12 hr 100 mg PO DAILY 04/06/23 06/02/24 History sustained-release cyclobenzaprine 10 mg tablet 10 mg PO TID 04/06/23 06/02/24 History desvenlafaxine succinate 50 mg 50 mg PO DAILY 04/06/23 06/02/24 History tablet,extended release 24 hr hydrocodone 5 mg-acetaminophen 325 1 tab PO Q4H PRN Pain 04/06/23 06/02/24 History mg tablet hydroxyzine HCl 50 mg tablet 50 mg PO HS 04/06/23 06/02/24 History ibuprofen 400 mg tablet 400 mg PO TIDP PRN Pain 04/06/23 06/02/24 History levocetirizine 5 mg tablet 5 mg PO DAILY 04/06/23 06/02/24 History metformin 500 mg tablet 500 mg PO QID 04/06/23 06/02/24 History methenamine mandelate 1 gram tablet 1 g PO BID 04/06/23 06/02/24 History omeprazole 40 mg capsule,delayed 40 mg PO BID 04/06/23 06/02/24 History release ondansetron 4 mg disintegrating 4 mg PO Q6H PRN Nausea 04/06/23 06/02/24 History tablet pregabalin 100 mg capsule 100 mg PO DAILY 04/06/23 06/02/24 History pregabalin 150 mg capsule 150 mg PO DAILY 04/06/23 06/02/24 History pregabalin 200 mg capsule 200 mg PO HS 04/06/23 06/02/24 History propranolol 10 mg tablet 10 mg PO BID 04/06/23 06/02/24 History tiotropium bromide 1.25 2 puff inhalation BID 04/06/23 06/02/24 History mcg/actuation mist for inhalation topiramate 100 mg tablet 100 mg PO DAILY 04/06/23 06/02/24 History baclofen 10 mg tablet See Rx Instructions .Route 02/11/24 06/02/24 Rx .COMPLEX #90 tabs methocarbamol 500 mg tablet 500 mg PO TID #90 tabs 05/05/24 06/02/24 Rx cariprazine 1.5 mg capsule 1.5 mg PO DAILY 06/02/24 06/02/24 History (Tayo) New Prescriptions to Start Prescriptions: Allergies Allergy/AdvReac Type Severity Reaction Status Date / Time amoxicillin AdvReac Vomiting Verified 06/09/23 13:01 ampicillin AdvReac Verified 06/09/23 13:01 clarithromycin AdvReac Vomiting Verified 06/09/23 13:01 clavulanic acid AdvReac Vomiting Verified 06/09/23 13:01 erythromycin base AdvReac Verified 06/09/23 13:01 potassium AdvReac Vomiting Verified 06/09/23 13:01 sulfamethoxazole AdvReac Verified 06/09/23 13:01 Assessment and Plan *Assessment and plan (1) Lumbar radiculopathy: Status: Acute Category: Medical Code(s): M54.16 - Radiculopathy, lumbar region (2) Bilateral leg weakness: Status: Acute Category: Medical Code(s): R29.898 - Other symptoms and signs involving the musculoskeletal system (3) Low back pain: Status: Acute Qualifiers: Chronicity: chronic Back pain laterality: bilateral Sciatica presence: without sciatica Qualified Code(s): M54.50 - Low back pain, unspecified; G89.29 - Other chronic pain Category: Medical Code(s): M54.50 - Low back pain, unspecified Plan Patient is experiencing worsening pain in her low back with numbness and tingling into her lower extremities. Patient did have limited range of motion of her lumbar spine with a positive leg raise. I did discuss with patient that I do believe they would benefit from a lumbar epidural steroid injection. Risk and benefits were discussed with patient and the patient would like to proceed forward with this plan of care. Patient is not on any blood thinners. Patient has tried and failed conservative therapy including continued at home stretching exercise for longer than 12 weeks between injections. Patient did previously have a lumbar epidural back in February that provided 50% relief and lasted longer than 3 months. Patient has had chronic back pain for longer than a year. Patient does have a previous history of altered kidney function. I did discuss with the patient regarding possible oral steroids while we wait to get her in for the injection however she does states she had these about a month ago. I have counseled her that it is not recommended to have this any sooner than every 3 months. Patient acknowledges understanding agrees with this plan of care. We will see about making adjustments on her methocarbamol to bring it to 750 mg 3 times a day. Patient is also using her compounded cream. We will schedule the patient for an LESI L4-L5 under fluoroscopy. Patient has been instructed to contact the clinic with any concerns before the next appointment. Dr. Lindsey has reviewed this note and agrees with this plan of care. This note was dictated using voice recognition software and make contain errors or omissions. All injections are used with Lidocaine, Bupivacaine and Depo Medrol. Occasionally urine drug screen is needed to verify patient's compliance with our office pain contract. This is ordered based off specific treatments related to chronic pain with the potential to abuse certain medications.
== END 2024-06-02 23:59 | disposition home or self-care (01) ==
PROVIDERS: Visit Provider Nurse Practitioner Family
DX: M54.16 Radiculopathy, lumbar region (principal); R29.898 Other symptoms and signs involving the musculoskeletal system; M54.50 Low back pain, unspecified; G89.29 Other chronic pain; Z73.89 Other problems related to life management difficulty; Z79.899 Other long term (current) drug therapy
CPT/HCPCS: 99212; G0463

== ENCOUNTER 2024-07-05 10:10 | Day surgery (SDC) | payer MEDICAID, SELFPAY ==
[2024-07-05 10:30] VITALS: BP 109/66; PULSE 67; RESP 16; O2SAT 100; BMI 37.5
[2024-07-05 10:37] VITALS: BP 131/84; PULSE 62; RESP 18; O2SAT 95
[2024-07-05] MEDS: DEXAMETHASONE 10MG/ML 1ML VIAL 10 MG (10:39)
[2024-07-05 10:44] VITALS: BP 107/61; PULSE 65; RESP 16; O2SAT 100
--- NOTE | 2024-07-05 10:48 | EXP.PAIN.PRO ---
Procedure Date: 07/05/24 Time: 10:30 Anesthesiologist:: Pascual Pandey CRNA Complications:: None Pre-procedure Diagnosis:: Degenerative disc lumbar spine multilevels. Lumbar radiculopathy. Post-procedure Diagnosis:: Same. Indications for Procedure:: Patient is a very pleasant 28-year-old female who comes our clinic today for a second lumbar epidural steroid injection at the L4-5 level. Patient describes low lumbar back pain as well as bilateral hip and leg radicular symptoms. She reports 2 months of significant improvement terms of her overall symptoms with previous injection same level. She rates her pain today /10. Procedure Details:: Procedure: Lumbar epidural steroid injection under fluoroscopy Informed consent was obtained and the risks and benefits of the procedure were explained to the patient. The patient was taken to the procedure room and noninvasive monitors placed, including noninvasive blood pressure cuff and pulse oximeter. The back was viewed using C-arm Fluoroscopy and prepped using Chloraprep as a cleansing solution and the L4-L5 interspace was palpated. Skin and subcutaneous tissues were anesthetized using lidocaine 1.5% and a 25-gauge needle. After this, an 18-gauge Touhy epidural needle was placed into the L4-L5 interspace and advanced using fluoroscopic guidance and loss of resistance to air until the epidural space was encountered. After confirmation of needle placement in the epidural space, with dye, a solution containing normal saline, 3 mL and Depo-Medrol 80 mg were incrementally injected into the lumbar epidural space. The patient tolerated the procedure well with no complications. The patient was observed in the Pain Clinic and then discharged home neurologically intact. Plan and Disposition:: Patient was discharged without incident.
== END 2024-07-05 10:44 | disposition home or self-care (01) ==
PROVIDERS: Visit Provider Nurse Anesthetist, Certified Registered
DX: M51.16 Intervertebral disc disorders with radiculopathy, lumbar region (principal)
CPT/HCPCS: 62323; J1100

== ENCOUNTER 2024-07-27 13:27 | Outpatient (POV) | payer MEDICAID, SELFPAY ==
--- OUTSIDE RECORDS SUMMARY | 2024-07-27 13:30 | XMS_ITS | Continuity of Care Document ---
Author Organization ADAM YOUSSE[facility] & [place], CLAIRE [facility] NEW Address [address] [place] [address] Care Team Providers Care Globe Changer Name Role Phone MARCO A, PANKAJ EUGENE Primary Care Provider [phone] Assessment No assessment recorded. Plan of Treatment Reminders Order Date Submit Date Provider Last Modified By Organization Details Last Modified Time Details Appointments OV EST 15 025 02:15PM Alberto Stephens MD Not available Not available Not available Lab None record ed. Referral None record ed. Procedures None record ed. Surgeries None record ed. Imaging None record ed. Medication Orders None record ed. Patient TargetsNo targets recorded. Patient Instructions Encounter Date Encounter Id Patient Instructions Last Modified By Organization Details Last Modified Time 07/08/2024 [id number] I have personall y reviewed the data obtained and entered from the scribe, biomedical engineering supervisor or nurse for this patient for this patient encounter. Discussed with patient. Patient interested balloon dilation of Eustachian tube. Patient wants to wait to schedule until after dental procedure. [email or web address] Not available 07/08/2024 08:26:29 Reason for Referral None Reported. Problems Name Problem SNOMED Code Status Onset Date Resolution Date Notes Provider Name and Address Organization Details Recorded Time Weight loss 41554219 Active 2024 Crystal Earlywine null, ADAM - HANNANT [facility] & [place] 5 10:27:21 Obstructiv e sleep apnea syndrome 51844611 Active 2021 jessie méndez null, ADAM - LPNT [facility] & [place] 3 17:22:29 Obstructiv e sleep apnea of adult 7442721332894 Active 2022 jessie méndez null, [place] - [facility] - [place] & [place] 3 17:22:28 Epigastric pain 63277293 Active 2022 jessieolvin danielsch null, [place] - [facility] - [facility] & [place] 3 17:22:29 Hepatomega ly 95842606 Active 2022 jessie danielsch null, [place] - [place] - [place] [facility] [place] 3 17:22:29 History of nasal sinus surgery 8958545414184 08 Active jessie danielsch null, [place] - [place] & [place] 3 17:22:29 Chronic maxillary sinusitis 18165701 Active jessie méndez null, [place] - [place] [facility] [place] 3 17:22:29 Hepatosple nomegaly 77253179 Active 2022 Joni Parks MD [facility] [place] [address], [id number] , [place] - [facility] - [place] & [place] 3 14:39:42 Asthma 843579803 Active 2022 Crystal Earlywine null, [place] [facility] [place] 3 13:26:09 Liver enzymes level above reference range 398328446 Active 2022 Joni Parks MD [facility] [employer] [address] [place] [address], [id number] , [place] - [place] - [place] & [place] 3 13:06:57 Disorder of function of stomach 141190466 Active 2023 Carlos Neville DNP, JUSTINE, FLIGHT DYNAMICIST-C [address] , [place], [address] , [place] - [place] & [place] 4 08:32:35 Morbid obesity 201183173 Active 2023 Carlos Neville DNP, APRN, FLIGHT DYNAMICIST-C [address], [place], [address] , [place] & [place] 4 08:32:50 Vitamin D deficiency 84319537 Active 2023 Carlos Neville DNP, MARKETING LEAD, FLIGHT DYNAMICIST-C [address], [place], [place], [address] [place] [address] , [place] & [place] 4 08:37:39 Cobalamin deficiency 421491761 Active 2023 Carlos Neville DNP, MARKETING LEAD, FLIGHT DYNAMICIST-C [address], [place], [place], [address] [place] [address] , [place] & [place] 4 08:37:46 Essential hypertensi on 10027347 Active 2023 Carlos Neville DNP, MARKETING LEAD, FLIGHT DYNAMICIST-C [address], [place], [address] [place] [address] , [place] [facility] [place] 4 15:25:01 Fibromyalg ia 107618855 Active 2023 Carlos Neville DNP, MARKETING LEAD, FLIGHT DYNAMICIST-C [address], [place], [address] [place] [address] , [place] [facility] [place] 4 15:25:14 Chronic kidney disease 276808367 Active 2023 Carlos Neville DNP, MARKETING LEAD, FLIGHT DYNAMICIST-C [address], [place], [address] [place] [address] , [place] & [place] 4 15:25:51 Problem Notes None recorded. Procedures Surgical History Date Name Laterality Status Provider Name and Address Organization Details Recorded Time 024 Date of Last Colonoscopy completed Penny Jacquie [place] - [place] - [place] & [place] 09/28/2023 11:02:19 024 Colonoscopy completed Pennydee Martínezence [place] - [facility] [facility] & [place] 09/28/2023 11:02:40 023 EGD completed Penny Jacquie [place] - [place] & [place] 09/02/2023 11:30:30 022 Date of Last Pap Smear completed Crystal Aidenwine [place] - [place] & [place] 03/21/2024 10:18:16 022 Most Recent Bone Density completed Crystal Earlywine [place] - [place] & [place] 03/21/2024 10:18:16 021 Other completed Penny Martínezence [place] - [place] & [place] 09/02/2023 11:30:31 018 Colonoscopy completed Penny Jacquie [place] & [place] 09/02/2023 11:30:31 002 Sinus Surgery completed Penny Jacquie [place] [facility] [place] 09/02/2023 11:30:31 001 Gastrointestinal Surgery completed Crystal Aidenwine [place] & [place] 06/26/2023 10:24:23 999 Gastrointestinal Surgery completed Shona MEDINA - LPNT - [place] & [place] 07/04/2022 10:43:00 extraction of wisdom tooth completed Shona Cerrato [place] & [place] 07/04/2022 10:59:47 tonsillectomy completed Carlos Neville DNP, MARKETING LEAD, FLIGHT DYNAMICIST-C [address], [place] & [place] 08/04/2023 14:03:06 Removal of adenoids completed Carlos Neville DNP, MARKETING LEAD, FLIGHT DYNAMICIST-C [address] [place], [address], [place] [facility] [place] 08/04/2023 14:03:15 Cholecystectomy completed Carlos Lindsey DNP, MARKETING LEAD, FLIGHT DYNAMICIST-C [address] , [place], [address], [place] [facility] [place] 08/04/2023 14:02:57 EGD/Endoscopy completed Shona MEDINA - [facility]NT - [place] & [place] 07/04/2022 11:01:19 Colonoscopy completed Ida Fernández [place] & [place] 08/04/2023 11:10:16 arthroplasty of right elbow completed Carlos Neville, DNP, MARKETING LEAD, FLIGHT DYNAMICIST-C [address] [facility], [place], [address], [place] & [place] 08/04/2023 14:04:39 Imaging Results None recorded. Procedure Notes None recorded. Medical Equipment None Reported. Allergies Allergen ID Allergen Name Allergen Category Reaction Reaction Severity Criticality Documentation Date Start Date Code Code System Note Provider Name and Address Organization Details Recorded Time 15517 Augmentin medicatio n vomiting Not available high 01/15/2022 80311 2 RxNorm Penny Dhill[place] null, [place] - [facility] [facility] & [place] 4 11:03:07 92664 Biaxin medicatio n vomiting Not available high 01/15/2022 80838 9 RxNorm Penny [place] null, [place] [facility] & [place] 4 11:03:26 70040 Keflex medicatio n vomiting Not available high 01/15/2022 71383 7 RxNorm Penny [place] null, [place] - [place] & [place] 4 11:03:56 96947 ampicilli n medicatio n Not available Not available Not available 12/16/20222013 733 RxNorm Penny [place] null, [place] [facility] [facility] & [place] 4 11:04:29 64889 erythromy lashonda medicatio n Not available Not available high 12/16/20222010 4053 RxNorm Penny Jacquie null, [place] - [place] & [place] 4 11:04:21 69781 clavulani c acid Not available Not available Not available Not available 12/16/20222010 46191 RxNorm Penny Martínezence null, [place] - [place] & [place] 4 11:03:50 86035 sulfameth oxazole medicatio n itching severe Not available 12/16/20222013 18168 RxNoADAM Gutiérrez [facility] & [place] 3 13:28:19 88991 clarithro mycin medicatio n vomiting severe Not available 12/16/2022201112 [facility] [place] 3 13:28:19 57940 egg extract food,medi cation headache severe Not available 12/16/20222011 32465 15 RxNoADAM Gutiérrez [facility] & [place] 3 13:28:19 52079 cow milk allergeni c extract food,medi cation Not available Not available Not available 12/16/20222011 07102 5 RxNoADAM Gutiérrez [facility] & [place] 3 13:28:19 Medications Name Sig Start Date Stop Date Status Note LastModified by Organization Details LastModified Time magic mouthwash 3(nystat, lidoc, benadr., maalox) SWISH AND SPIT 10 ML ( TWO (2) TEASPOONF UL ) TWICE DAILY FOR 10 DAYS 07/04 completed Not Available Not Available Not Available amantadine HCl 100 mg tablet as directed active Not Available Not Available No t Available cyclobenzap rine 10 mg tablet active Not Available Not Available Not Available amoxicillin 500 mg capsule TAKE ONE (1) CAPSULE BY MOUTH EVERY 12 HOURS FOR 10 DAYS 03/21 completed Not Available Not Available Not Available furosemide 40 mg tablet 1 tablet every day by oral route. active Not Available Not Available No t Available medroxyprog esterone 10 mg tablet TAKE ONE (1) TABLET EVERY DAY BY ORAL ROUTE AT BEDTIME FOR 14 DAYS. 05/17 completed Not Available Not Available Not Available methocarbam ol 500 mg tablet TAKE 1 TABLET BY MOUTH THREE TIMES DAILY. active Not Available Not Available No t Available metformin 500 mg tablet Take 1 tablet twice a day by oral route. 09/27 completed Not Available Not Available Not Available cyanocobala min (vit B-12) ER 1,000 mcg tablet,exte nded release 08/08 completed Not Available Not Available Not Available terconazole 0.4 % vaginal cream INSERT ONE (1) APPLICATO RFUL EVERY DAY BY VAGINAL ROUTE FOR 7 DAYS 05/13 completed Not Available Not Available Not Available nystatin 100,000 unit/mL oral suspension 07/08 completed Not Available Not Available Not Available prednisone 10 mg tablet as directed 07/08 completed Not Available Not Available Not Available nitrofurant oin macrocrysta l 50 mg capsule 06/25 completed Not Available Not Available Not Available doxycycline hyclate 100 mg capsule 06/25 completed Not Available Not Available Not Available albuterol sulfate 2.5 mg/3 mL (0.083 %) solution for nebulizatio n Inhale 2.5 mg by inhalatio n route. active Not Available Not Available No t Available citalopram 40 mg tablet TAKE ONE (1) & ONE HALF (1/2) TABLET BY MOUTH ONCE DAILY 06/11 completed Not Available Not Available Not Available Prenatabs Rx 29 mg iron-1 mg tablet TAKE ONE (1) TABLET EVERY DAY 05/13 completed Not Available Not Available Not Available cetirizine 10 mg tablet Take 1 tablet every day by oral route. 06/25 completed Not Available Not Available Not Available azithromyci n 250 mg tablet 06/11 completed Not Available Not Available Not Available ibuprofen 800 mg tablet TAKE ONE (1) TABLET BY MOUTH EVERY SIX (6) HOURS NEEDED FOR PAIN active Not Available Not Available No t Available fluconazole 150 mg tablet 05/13 completed Not Available Not Available Not Available valacyclovi r 1 gram tablet 07/04 completed Not Available Not Available Not Available fluconazole 200 mg tablet TAKE ONE TAB AT ONSET OF YEAST INFECTION AND ONE TAB FOUR (4) DAYS LATER 07/08 completed Not Available Not Available Not Available sucralfate 1 gram tablet Take 1 tablet twice a day by oral route. active Not Available Not Available No t Available benzoyl peroxide 2.5 % topical gel active Not Available Not Available Not Available ondansetron HCl 4 mg tablet TAKE ONE (1) TABLET BY MOUTH EVERY DAY active Not Available Not Available No t Available prednisone 20 mg tablet 09/27 completed Not Available Not Available Not Available benzoyl peroxide 10 % topical cleanser APPLY TOPICALLY TWICE DAILY NEEDED 05/13 completed Not Available Not Available Not Available pseudoephed rine ER 120 mg tablet,exte nded release 07/08 completed Not Available Not Available Not Available hydroxyzine HCl 50 mg tablet TAKE (1) TABLET BY MOUTH TWICE A DAY. active Not Available Not Available No t Available sulfamethox azole 800 mg-trimetho prim 160 mg tablet TAKE ONE (1) TABLET BY MOUTH TWICE DAILY FOR 10 DAYS 10/30 completed Not Available Not Available Not Available hydrocodone 10 mg-acetamin ophen 325 mg tablet TAKE ONE (1) TABLET BY MOUTH EVERY 8 HOURS NEEDED FOR 30 DAYS active Not Available Not Available No t Available omeprazole 40 mg capsule,del ayed release 06/25 completed Not Available Not Available Not Available Wellbutrin SR 100 mg tablet, 12 hr sustained-r elease 06/25 completed Not Available Not Available Not Available prednisone 10 mg tablets in a dose pack 06/11 completed Not Available Not Available Not Available bupropion HCl 100 mg tablet 03/21 completed Not Available Not Available Not Available propranolol 10 mg tablet TAKE (1) TABLET BY MOUTH THREE TIMES DAILY NEEDED FOR ANXIETY active Not Available Not Available No t Available methenamine hippurate 1 gram tablet TAKE ONE HALF (1/2) TABLET BY MOUTH TWICE DAILY active Not Available Not Available No t Available amoxicillin 875 mg tablet TAKE ONE (1) TABLET BY MOUTH TWICE DAILY UNTIL GONE 07/08 completed Not Available Not Available Not Available potassium chloride ER 20 mEq tablet,exte nded release(par t/cryst) 08/08 completed Not Available Not Available Not Available methocarbam ol 750 mg tablet TAKE 1 TABLET BY MOUTH THREE TIMES DAILY. active Not Available Not Available No t Available clindamycin 1 % topical gel APPLY TOPICALLY TWICE A DAY DIRECTED 05/13 completed Not Available Not Available Not Available hydrocortis one 2.5 % lotion APPLY TO AFFECTED AREA EXTERNALL Y ONCE A DAY NEEDED active Not Available Not Available No t Available methotrexat e sodium 2.5 mg tablet Take 2.5 mg by oral route. 09/25 completed Not Available Not Available Not Available OneTouch Ultra Test strips active Not Available Not Available Not Available baclofen 10 mg tablet TAKE 1 TABLET BY MOUTH THREE TIMES DAILY. 07/08 completed Not Available Not Available Not Available methenamine mandelate 0.5 gram tablet 09/25 completed Not Available Not Available Not Available benzonatate 100 mg capsule TAKE TWO (2) CAPSULES BY MOUTH THREE (3) TIMES DAILY NEEDED FOR 7 DAYS 05/17 completed Not Available Not Available Not Available doxycycline monohydrate 100 mg capsule Take 100 mg by oral route. 08/08 completed Not Available Not Available Not Available cephalexin 500 mg capsule TAKE ONE (1) CAPSULE BY MOUTH FOUR (4) TIMES DAILY FOR 10 DAYS 09/25 completed Not Available Not Available Not Available hyoscyamine sulfate 0.125 mg tablet TAKE 1 TABLET BY MOUTH 2 TO 4 TIMES A DAY NEEDED FOR DIARRHEA. 07/08 completed Not Available Not Available Not Available oseltamivir 75 mg capsule TAKE (1) CAPSULE BY MOUTH TWICE DAILY FOR 5 DAYS. 07/08 completed Not Available Not Available Not Available clotrimazol e-betametha sone 1 %-0.05 % topical cream 05/13 completed Not Available Not Available Not Available promethazin e 25 mg tablet TAKE (1) TABLET BY MOUTH EVERY SIX HOURS NEEDED. 07/08 completed Not Available Not Available Not Available progesteron e micronized 200 mg capsule TAKE 2 CAPSULES AT BEDTIME FOR 12 DAYS 05/17 completed Not Available Not Available Not Available lidocaine HCl 2 % mucosal solution SWISH AND SPIT WITH FIVE (5) MLS BY MOUTH TWICE DAILY 07/08 completed Not Available Not Available Not Available omeprazole 20 mg capsule,del ayed release TAKE 1 CAPSULE BY MOUTH ONCE DAILY 30 MINUTES BEFORE BREAKFAST . active Not Available Not Available No t Available topiramate 200 mg tablet TAKE ONE TABLET BY MOUTH AT BEDTIME active Not Available Not Available No t Available ergocalcife rol (vitamin D2) 1,250 mcg (50,000 unit) capsule TAKE ONE (1) CAPSULE BY MOUTH ONCE WEEKLY active Not Available Not Available No t Available azelastine 137 mcg (0.1 %) nasal spray 2 sprays twice a day by nasal route. active Not Available Not Available No t Available polyethylen e glycol 3350 17 gram/dose oral powder DISSOLVE 17 GM (1 CAPFUL) IN 4-8 OZ OF LIQUID ONCE DAILY 07/08 completed Not Available Not Available Not Available scopolamine 1 mg over 3 days transdermal patch APPLY ONE (1) PATCH EVERY 72 HOURS AND LEAVE ON FOR A DAY 07/08 completed Not Available Not Available Not Available SSD 1 % topical cream APPLY TO AFFECTED AREA ONCE DAILY NEEDED active Not Available Not Available No t Available ipratropium bromide 42 mcg (0.06 %) nasal spray SPRAY TWO (2) SPRAYS INTO EACH NOSTRIL THREE (3) TIMES DAILY NEEDED 07/08 completed Not Available Not Available Not Available ketoconazol e 2 % topical cream APPLY TO THE AFFECTED FLAKING AREA(S) OF SKIN TWO TIMES DAILY active Not Available Not Available No t Available ondansetron 4 mg disintegrat ing tablet Place 2 tablets twice a day by transling ual route. 10/30 completed Not Available Not Available Not Available topiramate 100 mg tablet 09/08 completed Not Available Not Available Not Available fluticasone propionate 50 mcg/actuati on nasal spray,suspe nsion INSTILL 2 SPRAYS IN EACH NOSTRIL ONCE DAILY. active Not Available Not Available No t Available metformin ER 500 mg tablet,exte nded release 24 hr TAKE ONE (1) TABLET BY MOUTH TWICE DAILY active Not Available Not Available No t Available clotrimazol e 1 % topical cream active Not Available Not Available Not Available doxycycline hyclate 100 mg tablet 03/21 completed Not Available Not Available Not Available dicyclomine 10 mg capsule 1 capsule 3 times a day by oral route. active Not Available Not Available No t Available loratadine 10 mg tablet 05/13 completed Not Available Not Available Not Available naproxen 500 mg tablet Take as needed by oral route as directed. 05/13 completed Not Available Not Available Not Available diazepam 5 mg tablet TAKE 1 TABLET BY MOUTH 45 MINUTES BEFORE MRI, MAY TAKE AN ADDITIONA L TABLET BEFORE MRI NEEDED 07/08 completed Not Available Not Available Not Available amoxicillin 875 mg-potassiu m clavulanate 125 mg tablet TAKE ONE (1) TABLET BY MOUTH TWICE DAILY FOR 10 DAYS 07/08 completed Not Available Not Available Not Available Vitamin B-12 1,000 mcg tablet TAKE ONE (1) TABLET BY MOUTH EVERY DAY active Not Available Not Available No t Available Ventolin HFA 90 mcg/actuati on aerosol inhaler INHALE 1-2 PUFFS BY MOUTH EVERY 4-6 HOURS NEEDED active Not Available Not Available No t Available clindamycin phosphate 1 % topical solution APPLY A THIN LAYER TO THE AFFECTED AREA(S) BY TOPICAL ROUTE TWO (2) TIMES PER DAY 07/08 completed Not Available Not Available Not Available albuterol (refill) 90 mcg/actuati on aerosol inhaler 08/15 completed Not Available Not Available Not Available bupropion HCl XL 300 mg 24 hr tablet, extended release TAKE 1 TABLET BY MOUTH EACH MORNING active Not Available Not Available No t Available nitrofurant oin monohydrate /macrocryst als 100 mg capsule TAKE (1) CAPSULE BY MOUTH TWICE DAILY FOR 5 DAYS 07/08 completed Not Available Not Available Not Available Tricor 145 mg tablet Take 1 tablet every day by oral route. active Not Available Not Available No t Available lactulose 10 gram/15 mL oral solution 07/08 completed Not Available Not Available Not Available pregabalin 100 mg capsule TAKE ONE (1) CAPSULE BY MOUTH ONCE A DAY FOR 30 DAYS active Not Available Not Available No t Available pregabalin 150 mg capsule TAKE ONE (1) CAPSULE BY MOUTH ONCE DAILY active Not Available Not Available No t Available pregabalin 200 mg capsule TAKE ONE (1) CAPSULE BY MOUTH ONCE DAILY 1-3 HOURS BEFORE BEDTIME active Not Available Not Available No t Available chlorhexidi ne gluconate 0.12 % mouthwash 05/13 completed Not Available Not Available Not Available Amitiza 24 mcg capsule active Not Available Not Available Not Available quetiapine 50 mg tablet 50 mg by oral route. 07/11 completed Not Available Not Available Not Available Symbicort 160 mcg-4.5 mcg/actuati on HFA aerosol inhaler INHALE 2 PUFFS BY MOUTH TWICE DAILY active Not Available Not Available No t Available levocetiriz ine 5 mg tablet TAKE 1 TABLET BY MOUTH ONCE A DAY. 07/08 completed Not Available Not Available Not Available Pristiq 50 mg tablet,exte nded release Take 1 tablet every day by oral route. active Not Available Not Available No t Available melatonin 5 mg tablet TAKE TWO (2) TABLETS BY MOUTH AT BEDTIME DIRECTED active Not Available Not Available No t Available Nexplanon 68 mg subdermal implant implant for control 06/11 completed Not Available Not Available Not Available Mucus DM 30 mg-600 mg tablet,exte nded release TAKE TWO (2) TABLETS BY MOUTH TWICE DAILY NEEDED FOR 10 DAYS 03/21 completed Not Available Not Available Not Available desvenlafax ine ER 50 mg tablet,exte nded release 24 hr 07/04 completed Not Available Not Available Not Available Tivicay 50 mg tablet Take 1 tablet every day by oral route. 06/11 completed Not Available Not Available Not Available potassium chloride ER 20 mEq tablet,exte nded release Take 1 tablet every day by oral route. 07/08 completed Not Available Not Available Not Available Vitamins Plus Low Iron 27 mg iron-1 mg tablet TAKE 1 TABLET BY MOUTH ONCE A DAY. active Not Available Not Available No t Available Spiriva Respimat 1.25 mcg/actuati on solution for inhalation INHALE 2 PUFFS BY MOUTH ONCE DAILY active Not Available Not Available No t Available naloxone 4 mg/actuatio n nasal spray active Not Available Not Available Not Available Vraylar 1.5 mg capsule TAKE (1) CAPSULE BY MOUTH ONCE A DAY. active Not Available Not Available No t Available Ozempic 0.25 mg or 0.5 mg (2 mg/1.5 mL) subcutaneou s pen injector 05/13 completed Not Available Not Available Not Available OneTouch Ultra2 Meter active Not Available Not Available Not Available OneTouch Delica Plus Lancet 33 gauge active Not Available Not Available Not Available Sodium Fluoride 5000 Plus 1.1 % dental cream USE TO BRUSH TEETH TWICE DAILY AND AFTER MEALS active Not Available Not Available No t Available Slynd 4 mg (28) tablet Take 1 tablet every day by oral route. active Not Available Not Available No t Available Ozempic 0.25 mg or 0.5 mg (2 mg/3 mL) subcutaneou s pen injector INJECT 0.5MG EVERY WEEK 09/25 completed Not Available Not Available Not Available Vitals Date Recorded Body height Body mass index (BMI) Body weight Body temperature Provider Name and Address Organization Details Last Updated DateTime 07/08/2024 165.1 cm 37.8 kg/m2 591527.47 g 97.8 [degF] Jevon MEDINA [facility] & [place] 07/08/2024 08:35:24 Social History Question Answer Notes LastModified by Organizat ion Details LastModified Time Tobacco Smoking Status Never Smoker Carmen vincent, ADAM YOUSSEF [facility] & [place] 06/11/2022 10:54:09 Do You Have An Advance Directive? Yes Information not available 09/28/2023 If You Are , What Was Your Level Of Alcohol Consumption Prior To ? Occasional Information not available 12/18/2022 Are You Blind Or Do You Have Difficulty Seeing? No [email or web address] Information not available 07/04/2022 What Is Your Level Of Caffeine Consumption? Moderate [email or web address] Information not available 09/09/2023 What Type Of Diet Are You Following? REGULAR [email or web address] Information not available 12/18/2022 What Was The Date Of Your Most Recent Tobacco Screening? 01/12/2022 Information not available 06/26/2023 Are You Passively Exposed To Smoke? Yes Information not available 07/04/2022 How Much Tobacco Do You Smoke? No [email or web address] Information not available 07/04/2022 Has Tobacco Cessation Counseling Been Provided? No Information not available 12/18/2022 How Many Years Have You Smoked Tobacco? 0 [email or web address] Information not available 07/04/2022 Sex: Female Functional Status Question Answer Note LastModified by Organizat ion Details LastModified Time Do you use any illicit or recreational drugs? No [email or web address] Information not available 06/11/2022 Do you or have you ever used any other forms of tobacco or nicotine? No [email or web address] Information not available 12/18/2022 What is your level of alcohol consumption? Occasional Information not available 07/04/2022 Do you or have you ever used smokeless tobacco? Never used smokeless tobacco [email or web address] Information not available 07/04/2022 What is your exercise level? None Information not available 06/26/2023 Mental Status Question Answer Note LastModified by Organization D etails LastModified Time Do you feel stressed (tense, restless, nervous, or anxious, or unable to sleep at night)? [id number] Information not available 09/28/2023 Family History Relationship Description Onset Age of this Age Resolved Age Notes LastModified by Organization Details LastModified Time Father Heart disease [id number] Not available 07/04 10:58:20 Father Coronary arterioscler osis [id number] Not available 07/08 07:47:14 Father Chronic obstructive pulmonary disease pt. added direct ly (06/25) [email or web address] Not available 06/26/2023 08:46:20 Father Headache pt. added direct ly (06/25) [email or web address] Not available 06/26/2023 08:46:49 Father Myocardial infarction pt. added direct ly (06/25) [email or web address] Not available 06/26/2023 08:46:57 Father Kidney disease pt. added direct ly (03/20) [email or web address] Not available 03/20/2024 19:27:31 Mother Hypertensive disorder [email or web address] Not available 07/04 10:58:44 Mother Diabetes mellitus [email or web address] Not available 07/08 07:47:14 Mother Chronic obstructive pulmonary disease pt. added direct ly (06/25) [email or web address] Not available 06/26/2023 08:46:20 Mother Disorder of endocrine system pt. added direct ly (06/25) [email or web address] Not available 06/26/2023 08:46:38 Mother Obesity pt. added direct ly (03/20) [email or web address] Not available 03/20/2024 19:21:32 Mother Hypercholest erolemia pt. added direct ly (03/20) [email or web address] Not available 03/20/2024 19:24:51 Mother Kidney disease pt. added direct ly (03/20) [email or web address] Not available 03/20/2024 19:27:31 Paternal Grandmother Disorder of endocrine system pt. added direct ly (06/25) [email or web address] Not available 06/26/2023 08:46:38 Maternal Grandmother Disorder of endocrine system pt. added direct ly (06/25) [email or web address] Not available 06/26/2023 08:46:38 Maternal Grandmother Kidney disease pt. added direct ly (03/20) [email or web address] Not available 03/20/2024 19:27:31 Paternal Aunt Disorder of thyroid gland pt. added direct ly (06/25) [email or web address] Not available 06/26/2023 08:47:39 Paternal Grandfather Cerebrovascu lar accident pt. added direct ly (06/25) [email or web address] Not available 06/26/2023 08:47:53 Maternal Aunt Cystic fibrosis pt. added direct ly (06/25) [email or web address] Not available 06/26/2023 08:48:20 Maternal Aunt Obesity pt. added direct ly (06/25) [email or web address] Not available 06/26/2023 08:48:40 Maternal Aunt Hypertensive disorder pt. added direct ly (03/20) [email or web address] Not available 03/20/2024 19:24:31 Maternal Aunt Hypercholest erolemia pt. added direct ly (03/20) [email or web address] Not available 03/20/2024 19:24:51 Maternal Aunt Kidney disease pt. added direct ly (03/20) [email or web address]-13 Not available 03/20/2024 19:27:31 Maternal Grandfather Myocardial infarction pt. added direct ly (03/20) [email or web address] Not available 03/20/2024 19:24:04 Unspecified Relation Mental health problem pt. added direct ly (03/20) [email or web address] Not available 03/20/2024 19:28:51 Unspecified Relation Sleep disorder pt. added direct ly (03/20) [email or web address] Not available 03/20/2024 19:29:12 Unspecified Relation Disorder of thyroid gland pt. added direct ly (03/20) [email or web address] Not available 03/20/2024 19:29:26 Notes:mother hypert ension, diabetes father alive CAD Medical History Condition Response Coronary Artery Disease N None N Gout N Colon Cancer N Kidney Stones Y Hyperthyroidism N Kidney or Bladder Problems N Depression Y COPD N Hypothyroidism N GI Problems Y Acne Y Osteoporosis/Osteopenia N Diverticulitis/Diverticulosis N Colon Polyps N Spine Problems Y Obstructive Sleep Apnea Y Anxiety Disorder Y Diabetes Y Obesity Y Bleeding Disorder N Vision or Eye Problems Y Arthritis Y Seizures/Epilepsy N Tuberculosis N Hyperlipidemia N Cancer N Back Problems Y Stroke N Asthma Y Reflux/GERD Y Sleep Apnea Y GERD/Reflux Y Hepatitis N Cirrhosis N Liver Disease N Psychiatric/Mental Health Condition Y Heart Disease N Headaches Y Hypertension Y Kidney Disease N Gynecological History Statement/Question Response Abnormal Pap N Flow Moderate Date of LMP 01/06/2022 Duration of Flow (days) 8 Current Control Method Other Age at Menarche 10 Date of Last Colonoscopy 07/30/2023 Most Recent Bone Density 09/10/2021 Sexually Active? Y Menses Monthly N Date of Last Pap Smear 01/06/2022 Obstetrics History GPAL:G 0 P 0 0 0 0 Immunizations Vaccine Type Date Status Note Provider Nam e and Address Organization Details Recorded Time HPV, unspecified formulation 6 completed Not Available [facility] 07/28/2022 18:35:27 HPV, unspecified formulation 6 completed Not Available [facility] 07/28/2022 18:35:27 SARS-COV-2 (COVID-19) vaccine, UNSPECIFIED completed Not Available [facility] 07/28/2022 18:35:27 Past Encounters Encounter ID Performer Location Encounter Start Date Encounter Closed Date Diagnosis/Indication Diagnosis SNOMED-CT Code Diagnosis ICD10 Code Diagnosis Note [id number] Alberto Stephens MD [facility] [address] [place] [address] 07/08/2024 07:46:49 07/08/2024 09:11:32 Ear pressure sensation 018255717 H93.8X9 Health Concerns Section Related Observation LastModified by Organization Detai ls LastModified Time None Recorded Concern Status LastModified by Organization Details LastModified Time None Recorded Payers Encounter Date Sequence Insurance Name Policy Number Policy Ochoa Covered Member ID Ochoa Member ID Guarantor Name 07/08/2024 1 [facility] (MEDICAID HMO) Kaitlynn Art [id number] Kaitlynn Art Notes Date Note Type Note Provider Name and Address Organization Details Recorded Time 07/08/2024 text/html Patient presents for evaluation management of ear pressure sensation. Patient interested in balloon dilation of Eustachian tube. Alberto Stephens MD [address] [place] [address],[address], [place], [address], [facility] - [place] & [place] 07/12/2024 14:21:34 OBGyn Episode No OBEpisode recorded.
--- OUTSIDE RECORDS SUMMARY | 2024-07-27 13:30 | XMS_ITS | Data Portability ---
Author Organization [facility] [place] [facility] ADMIN Address [address] [place] [address] Care Team Providers Care Sheetmetal Worker Name Role Phone PANKAJ STRICKLAND Primary Care Provider Assessment No assessment recorded. Plan of Treatment Reminders Order Date Submit Date Provider Last Modified By Organization Details Last Modified Time Details Appointments OV EST 15 2024 02:15P Asuncion Stephens MD Not available Not available Not available Lab T3, free, serum or plasma 2024 025 [facility] (Registration ), [address], [place], [address], 03/21/2024 11:50:27 T4, free + T4, total serum 2024 [email or web address] [place] [address] (Registration ), [place], [address], 03/30/2024 09:46:56 TSH, serum or plasma 2024 [email or web address] [place] [address] (Registration ), [place], [address], 03/30/2024 09:46:48 urinalysi s, dipstick 2023 024 [email or web address] [facility], [address] , [place], [address], 11/11/2023 14:26:53 Referral None recorded. Procedures None recorded. Surgeries None recorded. Imaging XR, chest, 2 view 2024 025 [facility] (Registration ), [address] [facility] [place], [address], 03/21/2024 11:24:27 Medication Orders methenami ne hippurate 1 gram tablet 2023 024 [email or web address] [facility], [address] [place], [address], 11/11/2023 15:28:28 Patient TargetsNo targets recorded. Patient Instructions Encounter Date Encounter Id Patient Instructions Last Modified By Organization Details Last Modified Time 09/28/2023 [id number] Discussed with Yo that she has no concerning findings on her nasal exam today. She may follow up as needed. dora Not available 10/01/2023 17:04:31 Reason for Referral None Reported. Results Created Date Observation Date Name Description Value Unit Range Abnormal Flag Note LastModifiedBy Organization Detail LastModifiedTime 11/11/1911/11/2023 urina lysis , dipst ick Leukocytes Negati ve Not Available [facility] [address] , [place], [address], 11/11/2023 14:26:15 11/11/19 24 11/11/2023 urina lysis , dipst ick Nitrite negati ve Not Available [facility] [address] , [place], [address], 11/11/2023 14:26:15 11/11/19 24 11/11/2023 urina lysis , dipst ick Urobilinogen .2 Not Available [facility] [address] , [place], [address], 11/11/2023 14:26:15 11/11/19 24 11/11/2023 urina lysis , dipst ick Protein Negati ve Not Available [facility] [address] , [place], [address], 11/11/2023 14:26:15 11/11/19 24 11/11/2023 urina lysis , dipst ick pH 6.5 Not Available [facility] [address] , [place], [address], 11/11/2023 14:26:15 11/11/19 24 11/11/2023 urina lysis , dipst ick Blood Negati ve Not Available [facility] [address] , [place], [address], 11/11/2023 14:26:15 11/11/19 24 11/11/2023 urina lysis , dipst ick Specific Amlin 1.025 Not Available [facility] [address] , [place], [address], 11/11/2023 14:26:15 11/11/19 24 11/11/2023 urina lysis , dipst ick Ketone Negati ve Not Available [facility] [address] , [place], [address], 11/11/2023 14:26:15 11/11/19 24 11/11/2023 urina lysis , dipst ick Bilirubin Negati ve Not Available [facility] [address] , [place], [address], 11/11/2023 14:26:15 11/11/19 24 11/11/2023 urina lysis , dipst ick Glucose Negati ve Not Available [facility] [address] , [place], [address], 11/11/2023 14:26:15 11/11/19 24 11/11/2023 urina lysis , dipst ick Appearance Clear Not Available [facility] [address] , [place], [address], 11/11/2023 14:26:15 11/11/19 24 11/11/2023 urina lysis , dipst ick Color Yellow Not Available [facility] [address] , [place], [address], 11/11/2023 14:26:15 03/21/19 25 03/21/2024 THYRO ID PANEL W/TSH note SEE NOTE Order ing Provi hortencia: Naima mehta MD Not Available [address] , [place], [address], 03/21/2024 11:50:26 03/21/19 25 03/21/2024 THYRO ID PANEL W/TSH T4 free 0.87 NG/dL 0.76-1 .46 normal This test may be affec betsey by high level s of bioti n, found in some presc ripti on and over- the-c ounte r suppl ement s. [place] patie nts shoul d disco ntinu e bioti n 3 days befor e testi ng. Resul ts obtai denise after recen t bioti n inges tion shoul d be inter prete d with cauti on. Not Available [address] , [place], [address], 03/21/2024 11:50:26 03/21/19 25 03/21/2024 THYRO ID PANEL W/TSH thyroid stimulating hormone 2.56 uIU/m L 0.36-3 .74 normal This test may be affec betsey by high level s of bioti n, found in some presc ripti on and over- the-c ounte r suppl ement s. [place], patie nts shoul d disco ntinu e bioti n 3 days befor e testi ng. Resul ts obtai denise after recen t bioti n inges tion shoul d be inter prete d with cauti on. Not Available [address] , [place], [address], 03/21/2024 11:50:26 03/21/19 25 03/21/2024 THYRO ID PANEL W/TSH performing lab SEE NOTE ML [facility] [address] [place] [address] Not Available [address] , [place], [address], 03/21/2024 11:50:26 03/21/19 25 03/21/2024 T3 FREE note SEE NOTE Order ing Provi hortencia: Naima mehta MD Not Available [address] , [place], [address], 03/21/2024 11:50:26 03/21/19 25 03/21/2024 T3 FREE T3 free 2.94 pg/mL 2.18-3 .98 normal This test may be affec betsey by high level s of bioti n, found in some presc ripti on and over- the-c ounte r suppl ement s. [place], patie nts neymarul d disco ntinu e bioti n 3 days befor e testi ng. Resul ts obtai denise after recen t bioti n inges tion argelia weir be inter prete d with cauti on. Not Available [address] , [place], [address], 03/21/2024 11:50:26 03/21/19 25 03/21/2024 T3 FREE performing lab SEE NOTE ML - [facility] [address] [employer] [employer] [place] [address] Not Available [address] , [place], [address], 03/21/2024 11:50:26 09/03/19 24 09/03/2023 XR, chest , 2 view No observ ation record ed. [facility] Not Available 2023 11:38:22 09/09/19 24 09/17/2023 elect rocar diogr am No observ ation record ed. [facility] [address], [place], [address], 09/17/2023 16:08:20 09/17/19 24 09/09/2023 elect vito car am No observ ation record ed. [facility] [address], [place], [address], 09/17/2023 16:08:09 09/28/19 24 09/19/2019 CT, sinus es, w/o contr ast No observ ation record ed. [email or web address] Not Available 09/27 11:43:45 03/21/19 25 03/21/2024 XR, chest , 2 view [facility] Name: [facility] Phys: Tucker durham MD, [place] [address] : 1995 Age: 28 Sex: F Acct: [id number] Loc: GZekeRAD PHONE #: [phone] Exam Date: 2024 Status : REG CLI FAX #: Rad# [phone] Unit# [id number] Admit Date: 2024 EXAMS: CPT CODE: [id number] 865 CHEST 2 VIEWS 67431 CLINIC AL INFORM ATION: Asthma COMPAR MARILYNN: 023 FINDIN GS: PA and latera l projec tions obtain ed. Lungs well expand ed and withou t infilt rate or effusi on. Heart and vascul arity within normal limits . No gross osseou s pathol ogy. IMPRES BRIELLE: 1. No acute cardio pulmon frances abnorm ality. COMMUN ICATIO N: Per this writte n report This report is genera betsey using voice recogn ition comput er softwa re. Inadve rtent errors may have occurr ed while dictat ing report . Common sense approa ch is apprec iated and do not hesita te to call for clarif icatio n when necess frances. Electr onical ly Signed by Erick Cruz on 2024 at 1119 Report ed and signed by: SIL Cruz M.D. CC: Graciela durham M.D.; Derik Golden MD Dictat ed Date/T etta: 2024 (1119) Techno logist : Anna BERNSTEIN Transc ribed Date/T etta: 2024 (1119) Transc riptio nist: DR.HAR RAMOS Electr onic Signat ure Date/T etta: 2024 (1119) Printe d Date/T teta: 2024 (1123) BATCH NO: N/A PAGE 1 Signed Report CC'ed Logic: Orderi ng Provid er: TUCKER SHANNONRE Y Attend ing Provid er: TUCKER SHANNONRE Y Referr ing Provid er: TUCKER SHANNONRE Y Consul ting Provid er: KARTHIK ESCALANTE [email or web address] [place] [address] , [place], [address], 03/21/2024 11:26:05 03/21/19 25 08/05/2023 XR, chest No observ ation record ed. Not Available 03/09 15:07:48 05/18/19 25 03/21/2024 XR, chest , 2 view No observ ation record ed. [facility] (Registration ) [address] [place] [address] [place], [address], 05/17/2024 09:52:03 Result Notes None recorded. Problems Name Problem SNOMED Code Status Onset Date Resolution Date Notes Provider Name and Address Organization Details Recorded Time Weight loss 83265899 Active 2024 ADAM Gan [place] [place] 10:27:21 Obstructiv e sleep apnea syndrome 03172327 Active 2021 jessie méndez melisa, [place] - [facility] - [place] & [place] 3 17:22:29 Obstructiv e sleep apnea of adult 6663505970182 Active 2022 jessie danielsch null, [place] - [facility] - [facility] & [place] 3 17:22:28 Epigastric pain 49621769 Active 2022 jessieolvin danielsch null, [place] - [facility] [place] 3 17:22:29 Hepatomega ly 40526525 Active 2022 jessie hitch null, [place] - [facility] - [facility] & [place] 3 17:22:29 History of nasal sinus surgery 4644910326197 08 Active jessie danielsch null, [place] - [facility] - [facility] & [place] 3 17:22:29 Chronic maxillary sinusitis 60719597 Active jessie méndez null, [place] - [facility] - [facility] & [place] 3 17:22:29 Hepatosple nomegaly 72682409 Active 2022 Joni Parks MD [facility] [employer], [place], [address] , [place] - [facility] - [facility] & [place] 3 14:39:42 Asthma 928947386 Active 2022 Crystal Aidenwine null, [place] - [facility] - [facility] & [place] 3 13:26:09 Liver enzymes level above reference range 954135060 Active 2022 Joni Parks MD [facility] [employer],[address], [place], [address] , [place] - [facility] - [facility] & [place] 3 13:06:57 Disorder of function of stomach 272983161 Active 2023 Carlos Neville DNP, [employer] SOFTWARE ENGINEER, [employer] [address], [place], [address] , [place] - [facility] - [facility] & [place] 4 08:32:35 Morbid obesity 972602608 Active 2023 Carlos Neville DNP, JUSTINE, [employer] [address], [place], [address] , [place] - [place] [place] 4 08:32:50 Vitamin D deficiency 29114702 Active 2023 Carlos Neville, YEHUDA, [employer] SOFTWARE ENGINEER, [employer] [address], [place], [address] [place] [address] , [place] - [place] [place] 4 08:37:39 Cobalamin deficiency 701759698 Active 2023 Carlos Neville DNP, [employer] SOFTWARE ENGINEER, [employer] [address], [place], [place], [address] [place] [address] , [place] [facility] 4 08:37:46 Essential hypertensi on 28635618 Active 2023 Carlos Neville DNP, HAD[employer] SOFTWARE ENGINEER, [employer] [address], [place], [address] [place] [address] , [place] - [place] 4 15:25:01 Fibromyalg ia 391202442 Active 2023 Carlos Neville DNP, [employer] SOFTWARE ENGINEER, [employer] [address], [place], [address] [place] [address] , [place] - [place] 4 15:25:14 Chronic kidney disease 646399471 Active 2023 Carlos Neville DNP, HAD[employer] SOFTWARE ENGINEER, [employer] [address], [place], [address] [place] [address] , [place] - [place] [place] 4 15:25:51 Problem Notes None recorded. Procedures Surgical History Date Name Laterality Status Provider Name and Address Organization Details Recorded Time 024 Date of Last Colonoscopy completed Penny Jacquie [place] - [facility] & [place] 09/28/2023 11:02:19 024 Colonoscopy completed Pennydee Martínezence [place] - [facility] & [place] 09/28/2023 11:02:40 023 EGD completed Penny Jacquie [place] - [place] - [place] & [place] 09/02/2023 11:30:30 022 Date of Last Pap Smear completed Carmen Kathleene [place] - [place] 03/21/2024 10:18:16 022 Most Recent Bone Density completed Crystal Franniee [place] 03/21/2024 10:18:16 021 Other completed Penny Martínezence [place] - [place] 09/02/2023 11:30:31 018 Colonoscopy completed Penny Martínezence [place] - [place] 09/02/2023 11:30:31 002 Sinus Surgery completed Penny Martínezence [place] - [place] & [place] 09/02/2023 11:30:31 001 Gastrointestinal Surgery completed Carmen Kathleene [place] - [place] 06/26/2023 10:24:23 999 Gastrointestinal Surgery completed Shona MEDINA - [facility] [place] 07/04/2022 10:43:00 extraction of wisdom tooth completed Shona MEDINA - [place] [place] 07/04/2022 10:59:47 tonsillectomy completed Carlos Neville DNP, HADOOP SOFTWARE ENGINEER, [employer] [address] , [place], [address], [place] 08/04/2023 14:03:06 Removal of adenoids completed Carlos Neville DNP, HADOOP SOFTWARE ENGINEER, [employer] PRE[employer]C [address], [place], [address], [place] [place] 08/04/2023 14:03:15 Cholecystectomy completed Carlos Lindsey DNP, HADOOP SOFTWARE ENGINEER, [employer] [address], [place], [address], [place] [place] 08/04/2023 14:02:57 EGD/Endoscopy completed Shona MEDINA - [place] [place] 07/04/2022 11:01:19 Colonoscopy completed Ida Fernández [place] - [place] [place] 08/04/2023 11:10:16 arthroplasty of right elbow completed Carlos Neville, DNP, HADOOP SOFTWARE ENGINEER, [employer] PRE[employer]ER-C [address] [facility], [place], [address], [facility] - [facility] [place] 08/04/2023 14:04:39 Imaging Results Imaging Date Name Status LastModified by Organization Details LastModified Time 09/03/2023 XR, chest, 2 view completed [facility] Informa tion not available 09/03/2023 11:38:22 09/17/2023 electrocardiogram completed [facility] [address] [facility] [address], [place], [address], 09/17/2023 16:08:20 09/09/2023 electrocardiogram completed [facility] [address] [facility] [address], [place], [address], 09/17/2023 16:08:09 09/19/2019 CT, sinuses, w/o contrast completed Information not available 09/28/2023 11:43:45 03/21/2024 XR, chest, 2 view completed [email or web address] [place], [address], 03/21/2024 11:26:05 08/05/2023 XR, chest completed Information n ot available 03/21/2024 15:07:48 03/21/2024 XR, chest, 2 view completed [facility] (Registration) [facility] [place], [address], 05/17/2024 09:52:03 Procedure Notes None recorded. Medical Equipment None Reported. Allergies Allergen ID Allergen Name Allergen Category Reaction Reaction Severity Criticality Documentation Date Start Date Code Code System Note Provider Name and Address Organization Details Recorded Time 94775 Augmentin medicatio n vomiting Not available high 01/15/2022 79482 2 RxNorm Penny Dhillon null, ADAM - [facility] & [place] 4 11:03:07 16740 Biaxin medicatio n vomiting Not available high 01/15/202235128 9 RxNorm Penny Dhillon null, ADAM Horn LP[facility] & [place] 4 11:03:26 65053 Keflex medicatio n vomiting Not available high 01/15/202217163 7 RxNorm Penny Dhillon null, ADAM Horn LPNT [facility] & [place] 4 11:03:56 09584 ampicilli n medicatio n Not available Not available Not available 12/16/20222013 733 RxNorm Penny vincent, ADAM Horn LPNT [facility] & [place] 4 11:04:29 07438 erythromy lashonda medicatio n Not available Not available [facility] 12/16/20222010 4053 RxNorm Penny Dhillon null, ADAM - LP[facility] & [place] 4 11:04:21 07785 clavulani c acid Not available Not available Not available Not available 12/16/20222010 91044 RxNorm Penny vincent, ADAM Horn LPNT [facility] & [place] 4 11:03:50 97760 sulfameth oxazole medicatio n itching severe Not available 12/16/20222013 47228 RxNorm Cathy vincent, ADAM Horn LPNT [facility] & [place] 3 13:28:19 10609 clarithro mycin medicatio n vomiting severe Not available 12/16/20222011 91669 RxNorm Cathy vincent, ADAM Honr LPNT [facility] & [place] 3 13:28:19 91984 egg extract food,medi cation headache severe Not available 12/16/20222011 15678 15 RxNorm Cathy vincent, ADAM Horn LPNT [facility] & [place] 3 13:28:19 98791 cow milk allergeni c extract food,medi cation Not available Not available Not available 12/16/20222011 17349 5 RxNorm Cathy vincent, [place] 13:28:19 Medications Name Sig Start Date Stop [...] height Body mass index (BMI) Body weight Provider Name and Address Organization Details Last Updated DateTime 09/28/2023 165.1 cm 41.1 kg/m2 626115.32 g Penny Martínezence [facility] [place] 09/28/2023 11:01:54 Date Recorded Body height Body mass index (BMI) Body weight Body temperature Oxygen saturation Oxygen saturation in Arterial blood by Pulse oximetry Heart rate Systolic blood pressure Diastolic blood pressure Provider Name and Address Organization Details Last Updated DateTime 4 165.1 cm 41.1 kg/m2 990514. 32 g 97.9 [degF] 98 % 98 % 68 /min 115 mm[Hg] 72 mm[Hg] Shona Mariano [place] - [facility] & [place] 4 14:16:15 Date Recorded Body height Body mass index (BMI) Body weight Respiratory rate Systolic blood pressure Diastolic blood pressure Provider Name and Address Organization Details Last Updated DateTime 5 165.1 cm 39.3 kg/m2 690578. 8 g 14 /min 118 mm[Hg] 82 mm[Hg] Crystal Earlywine [place] - [place] [facility] & [place] 5 10:17:37 Date Recorded Oxygen saturation Oxygen saturation in Arterial blood by Pulse oximetry Heart rate Provider Name and Address Organization Details Last Updated DateTime 03/21/2024 99 % 99 % 70 /min Owen Collins MD [address] [facility] [address], [place], [address], ADAM DOMONIQUE [facility] & [place] 03/21/2024 10:41:23 Date Recorded Body height Body mass index (BMI) Body weight Oxygen saturation Oxygen saturation in Arterial blood by Pulse oximetry Heart rate Respiratory rate Systolic blood pressure Diastolic blood pressure Provider Name and Address Organization Details Last Updated DateTime 165.1 cm 37.9 kg/m2 144626. 06 g 98 % 98 % 67 /min 12 /min 128 mm[Hg] 78 mm[Hg] Carmen YOUSSEF [facility] & [place] 5 10:35:37 Date Recorded Body height Body mass index (BMI) Body weight Body temperature Provider Name and Address Organization Details Last Updated DateTime 07/08/2024 165.1 cm 37.8 kg/m2 192385.47 g 97.8 [degF] Jevon Hanley ADAM [facility] & [place] 07/08/2024 08:35:24 Social History Question Answer Notes LastModified by Organizat ion Details LastModified Time Tobacco Smoking Status Never Smoker ADAM Wisdom [facility] & [place] 06/11/2022 10:54:09 Do You Have An Advance Directive? Yes Information not available 09/28/2023 If You Are , What Was Your Level Of Alcohol Consumption Prior To ? Occasional [email or web address] Information not available 12/18/2022 Are You Blind Or Do You Have Difficulty Seeing? No [email or web address] Information not available 07/04/2022 What Is Your Level Of Caffeine Consumption? Moderate [email or web address] Information not available 09/09/2023 What Type Of Diet Are You Following? REGULAR [email or web address] Information not available 12/18/2022 What Was The Date Of Your Most Recent Tobacco Screening? 01/12/2022 Information not available 06/26/2023 Are You Passively Exposed To Smoke? Yes [email or web address] Information not available 07/04/2022 How Much Tobacco Do You Smoke? No [email or web address] Information not available 07/04/2022 Has Tobacco Cessation Counseling Been Provided? No [email or web address] Information not available 12/18/2022 How Many Years Have You Smoked Tobacco? 0 Information not available 07/04/2022 Sex: Female Functional Status Question Answer Note LastModified by Organizat ion Details LastModified Time Do you use any illicit or recreational drugs? No Information not available 06/11/2022 Do you or have you ever used any other forms of tobacco or nicotine? No [email or web address] Information not available 12/18/2022 What is your level of alcohol consumption? Occasional [email or web address] Information not available 07/04/2022 Do you or have you ever used smokeless tobacco? Never used smokeless tobacco [email or web address] Information not available 07/04/2022 What is your exercise level? None Information not available 06/26/2023 Mental Status Question Answer Note LastModified by Organization D etails LastModified Time Do you feel stressed (tense, restless, nervous, or anxious, or unable to sleep at night)? [id number] Information not available 09/28/2023 Family History Relationship Description Onset Age of this Age Resolved Age Notes LastModified by Organization Details LastModified Time Father Heart disease [email or web address] Not available 07/04 10:58:20 Father Coronary arterioscler osis [email or web address] Not available 07/08 07:47:14 Father Chronic obstructive pulmonary disease pt. added direct ly (06/25) [email or web address] Not available 06/26/2023 08:46:20 Father Headache pt. added direct ly (06/25) [email or web address] Not available 06/26/2023 08:46:49 Father Myocardial infarction pt. added direct ly (06/25) [email or web address] Not available 06/26/2023 08:46:57 Father Kidney disease pt. added direct ly (03/20) [email or web address] Not available 03/20/2024 19:27:31 Mother Hypertensive disorder [email or web address] Not available 07/04 10:58:44 Mother Diabetes mellitus [email or web address] Not available 07/08 07:47:14 Mother Chronic obstructive [...] Cancer N Kidney Stones Y Hyperthyroidism N Depression Y COPD N Hypothyroidism N Diverticulitis/Diverticulosis N Spine Problems Y Obstructive Sleep Apnea Y Anxiety Disorder Y Obesity Y Vision or Eye Problems Y Arthritis Y Cancer N Stroke N Liver Disease N Psychiatric/Mental Health Condition Y Headaches Y Kidney Disease N Kidney or Bladder Problems N GI Problems Y Acne Y Osteoporosis/Osteopenia N Colon Polyps N Diabetes Y Bleeding Disorder N Seizures/Epilepsy N Tuberculosis N Hyperlipidemia N Back Problems Y Asthma Y Reflux/GERD Y Sleep Apnea Y GERD/Reflux Y Hepatitis N Cirrhosis N Heart Disease N Hypertension Y Gynecological History Statement/Question Response Abnormal Pap N [...] HPV, unspecified formulation 6 completed Not Available [facility] 07/28/2022 18:35:27 HPV, unspecified formulation 6 completed Not Available [facility] 07/28/2022 18:35:27 SARS-COV-2 (COVID-19) vaccine, UNSPECIFIED completed Not Available [facility] 07/28/2022 18:35:27 Past Encounters Encounter ID Performer Location Encounter Start Date Encounter Closed Date Diagnosis/Indication Diagnosis SNOMED-CT Code Diagnosis ICD10 Code Diagnosis Note [id number] MD [facility] [address] [place] [address] [place] [address] 08/15/2022 08:25:50 08/15/2022 08:45:40 Obstructive sleep apnea of adult 6338132456 103 G47.33 History of obesity 64629 3001 Z91.89 History of asthma 610640 007 Z87.09 [id number] Carmen Stewart NP, [facility] [address] [facility],[address] [place] [address] 06/12/2022 15:04:00 06/13/2022 08:26:53 Recurrent urinary tract infection [id number] N39.0 UA clear todayConti nue Methenamin e 500mg bidRTC in 3 months for f/u with UA [id number] Joni Parks MD [facility] [address] [place] [address],[place] [address] 07/04/2022 10:21:18 07/04/2022 11:28:08 Epigastric pain 26277565 R10.13 patient's epigastric pain is likely multifacto rial, the patient is on to nonsteroid als, and recently started on Ozempic, the patient's symptoms seemed to start at that time that her Ozempic was started. Suspect were dealing with a degree of nonsteroid al induced injury and likely delay in gastric emptying from this new agent. We will discontinu e naproxen, and ibuprofen. Continue PPI therapy, schedule EGD. if the patient has no other gastric mucosal based abnormalit ies, this patient may need to consider an alternativ e to Ozempic Hepatomegaly [id number] R1 6.0 patient reports a history of fatty liver, now with hepatic splenomega ly. LFTs normal, set patient up for a Fibroscan for further evaluation . [id number] Joni Parks MD [facility] [address] [place] [address],[place] [address] 07/10/2022 08:54:48 07/10/2022 09:31:52 Hepatomegaly [id number] R16.0 patient reports a history of fatty liver, now with hepatic splenomega ly. LFTs normal, set patient up for a Fibroscan for further evaluation . [id number] Joni Parks MD [facility] [address] [place] [address],[facility] [place] [address] 07/24/2022 09:49:23 07/24/2022 10:35:43 Hepatomegaly 49825208 R16.0 patient reports a history of fatty liver, now with hepatic splenomega ly. LFTs normal, set patient up for a Fibroscan for further evaluation . [id number] Joni Parks MD [facility] [address] [place] [address],[facility] [place] [address] 08/08/2022 13:20:30 08/08/2022 14:44:25 Hepatosplenomegaly 38518049 R16.2 Workup related to hepatic splenomega ly noted on unrelated imaging demonstrat ed normal LFTs, normal fibroscan, acute hepatitis panel HIV CMV and EBV serologies demonstrat ed no active disease. Will check a human growth hormone as enlarged liver explain can be related to human growth hormone abnormalit ies.repeat U/S in 4 months Epigastric pain 40648352 R10.13 The patient's abdominal pain resolved with discontinu ation of Ozempic. Consistent with an Ozempic induced side effect. Recommend avoidance of similar agents in future. If symptoms should recur we would certainly be happy to see the patient back at this time no further workup of this problem is indicated [id number] Carmen Stewart, RICHA, S [facility] [address] [facility],[address] [place] [address] 10/30/2022 14:56:07 10/30/2022 15:15:17 Recurrent urinary tract infection [id number] N39.0 UA clearConti nue Methenamin e 500mg bidRTC in 6 months for f/u Nocturia 541194037 R35.1 [id number] MD [facility] [address] [place] [address] [place] [address] 09/25/2022 09:03:02 09/25/2022 09:28:10 History of obesity 914320658 Z91.89 Obstructiv e sleep apnea of adult 9793926366 103 G47.33 History of asthma 631917 007 Z87.09 [id number] Owen Collins MD [facility] [address] [place] [address] [place] [address] 01/02/2023 09:50:18 01/02/2023 10:17:41 History of obesity 506195817 Z91.89 Obstructiv e sleep apnea of adult 6463657845 103 G47.33 History of asthma 029746 007 Z87.09 [id number] Joni Parks MD [facility] [address] [place] [address] Drive,[place] [address] 12/18/2022 12:47:03 12/18/2022 13:20:23 Hepatosplenomegaly 04249489 R16.2 Workup related to hepatic splenomega ly noted on unrelated imaging demonstrat ed normal LFTs, normal fibroscan, acute hepatitis panel HIV, CMV, HGH and EBV serologies demonstrat ed no active disease. repeat U/S in now Liver enzy mes level above reference range 657881288 R74.01 The patient's LFTs are up since her last examinatio n, this correspond s with the weight gain, clearly concerning the 2 are related. We were surprised by the patient's Fibroscan results which suggested minimal steatosis, at this time we will recheck an ultrasound , but also check labs outlined below to look for alternativ e causes for the recent elevation in LFTs. The importance of regular aerobic activity and weight control were stressed Body mass index 40+ - severely obese 661869727 Z68.41 the importance of regular aerobic activity to help with weight control was stressed to the patient. Dietary recommenda tions were also reiterate [id number] Carmen Stewart NP, [facility] [address] [facility],[address] [place] [address] 05/14/2023 14:18:36 05/14/2023 14:46:13 Recurrent urinary tract infection [id number] N39.0 UA clearConti nue Methenamin e 500mg bidRTC in 6 months for f/u Nocturia 017109609 R35.1 [id number] Owen Collins MD [facility] [address] [place] [address] [address] [place] [address] 06/26/2023 10:13:06 06/26/2023 10:38:25 History of obesity 458524984 Z91.89 Obstructiv e sleep apnea of adult 0502202049 103 G47.33 History of asthma 527026 007 Z87.09 [id number] Alberto Stephens MD [facility] [address] [place] [address] 07/15/2023 15:26:28 07/15/2023 15:40:41 Ear pressure sensation 472916289 H93.8X9 [id number] Carlos Neville, DNP, HADOOP SOFTWARE ENGINEER, MOLD PREPARER-[facility] [address] [facility] [address] [place] [address] 08/04/2023 10:50:57 08/04/2023 14:19:11 Asthma 080525773 J45.909 Obstructiv e sleep apnea of adult 6054803231 103 G47.33 Disorder o f function of stomach 769480484 K31.89 pt had EGD in 2022 at [facility] in [place], [place] and reported as normal. I have asked her to sign RUBY in order to get theses results. Morbid obesity 520388035 E66.01 Obesity 219054387 E66.9 Pre-surger y evaluation 411190260 Z01.818 Vitamin D deficiency 347 94233 E55.9 Cobalamin deficiency 190 656777 E53.8 Essential hypertension 95569168 I10 Fibromyalgia 144756290 M 79.7 Chronic ki dney disease 411979859 N18.9 patient will need clearance from her nephrologi st. [id number] [address]EC[address] SUARE[address], LD [facility] [address] [facility] [address] [place] [address] 08/04/2023 15:03:14 08/04/2023 16:17:19 Essential hypertension 11825521 I10 Morbid obesity 878467645 E66.01 BMI 43.1 Obstructiv e sleep apnea of adult 3477533100 103 G47.33 [id number] MD [facility] [address] [place] [address] [address] [place] [address] 09/03/2023 09:43:47 09/03/2023 10:05:34 History of obesity 602376321 Z91.89 Obstructiv e sleep apnea of adult 8122515080 103 G47.33 History of asthma 307103 007 Z87.09 [id number] Daphney Jang MD [facility] [place] [address] [address] [place] [address] 09/28/2023 10:44:57 09/28/2023 11:41:45 History of nasal sinus surgery [id number] 49878 Z98.001 [id number] Guillermo Jeong MD [facility] [address] [facility] [address] [place] [address] 09/09/2023 13:43:30 09/09/2023 14:31:30 Pre-surgery evaluation 867501722 Z01.818 Good functional capacity with no prior cardiac history. Patient is low risk for cardiovasc ular complicati ons. No further cardiac testing warranted at this point. Essential hypertension 29753060 I10 Continue current medication . Keep log Low-salt diet < 2 gm Na/day, Regular exercise Weight loss Morbid obesity 929229318 E66.01 Low-carboh ydrate and low-fat diet Increase exercise to 30 minutes a day. Increase fruits and fresh vegetable intake and decrease processed foods and sugars Obstructiv e sleep apnea syndrome 19852147 G47.33 on CPAP [id number] Carmen Stewart, RICHA, S [facility]-[address] [place] [address] 11/11/2023 13:54:02 11/11/2023 14:23:59 Recurrent urinary tract infection 187249934 N39.0 UA clearConti nue Methenamin e 500mg bidRTC in 6 months for f/u Nocturia 101758867 R35.1 [id number] MD [facility] [address] [place] [address] [place] [address] 03/21/2024 10:06:53 03/21/2024 10:29:19 History of obesity 316631737 Z91.89 Obstructiv e sleep apnea of adult 9368646343 103 G47.33 History of asthma 068180 007 Z87.09 Weight loss 66038911 R63 .4 [id number] MD [facility] [address] [place] [address] [place] [address] 05/17/2024 10:08:36 05/17/2024 10:42:05 History of obesity 443034084 Z91.89 Obstructiv e sleep apnea of adult 9643729629 103 G47.33 History of asthma 095693 007 Z87.09 Weight loss 15275252 R63 .4 [id number] Alberto Stephens MD [facility] [address] [place] [address] 07/08/2024 07:46:49 07/08/2024 09:11:32 Ear pressure sensation 762859175 H93.8X9 Health Concerns Section Related Observation LastModified by Organization Detai ls LastModified Time None Recorded Concern Status LastModified by Organization Details LastModified Time None Recorded Advance Directives Directive Y: Payers Insurance Date Sequence Insurance Name Policy Number Policy Ochoa Covered Member ID Ochoa Member ID Guarantor Name 07/13/[address] [facility] (MEDICAID HMO) Yo Art [id number] Yo Art Notes Date Note Type Note Provider Name and Address Organization Details Recorded Time 09/28/2023 text/html 09/28/23-Patient is here for routine follow up on nasal polyp on the left side, she states she has seen Dr Cardona in the past for this issue and he has done her surgeries. She is not having any concerns at this time. She has not been seen in this office since 2021. She denies any infections. Daphney Jang MD [address], [place], [address], [facility] [place] 10/01/2023 17:07:19 11/11/2023 text/html 28 yowf RTC for 6 month f/u of recurrent UTIs. Recurrent UTIs have been managed with methenamine 500 mg b.i.d.. States since her last visit on 05/14/2023, she has not experienced any UTIs. Reports urinary stream is good. Nocturia x2. Bowels move regularly. Has occ dysuria, takes cranberry with Azo. Denies any gross hematuria. Patient is a diabetic, on metformin. She denies any urinary incontinence. Patient underwent cystoscopy with right retrograde pyelogram in 2016 that was negative. States she will be having Gastric Sleeve in December by Dr Jamarcus Perez. Carmen Stewart, RICHA, S [address] [facility], [place], [address], [facility] [place] [facility] [place] 11/11/2023 14:27:27 03/21/2024 text/html 28-year-old jonatan zimmerman. She is here for follow up for sleep apnea. She has a history of fibromyalgia, anxiety and PCOD. She is off CPAP, states she can not wear. She turned her CPAP machine back in. She complains of fatigue and wanted to try CPAP again. She did not tolerate a nasal pillow mask. She was on auto CPAP in a range of 4-10 cm with EPR 3, ramp time 45 minutes and an apnea plus hypopnea index of 1.7. She was noncompliant with CPAP and declines CPAP , she turned her CPAP machine back in. I told the patient untreated sleep apnea could result in immediate ill health, sickness, , she voiced understanding and declined CPAP.She is lost 23 lb since July 2023. Complains of not much of an appetite.She voices no cardiopulmonary complaints, no GI complaints, and no neurologic complaints. She is holding off on bariatric surgery given her weight loss.She is doing well from a pulmonary standpoint, is again at her baseline. She is her nebulizer machine once a month. Rarely using her albuterol inhaler. She denies fever, chills, night sweats, hemoptysis, pleurisy, chest pain, chest pressure, cough, productive sputum, orthopnea, PND, syncope or palpitations. Chest x-ray done August 05, 2023: No acute cardiopulmonary abnormality Sleep study done June 2023: Apnea plus hypopnea index of 8.2, she spent 70 percent night snoring, spent the entire night above 90 percent saturation, lowest saturation recorded was 92 percent. Home sleep study done August 2022: Apnea plus hypopnea index of 5.7, she spent 61% of the night snoring, mean saturation 97%, spent the entire night above 90 % saturation. Mean heart rate 58. Recommended auto CPAP in a range of 4-20 cm. She was changed to auto CPAP in a range of 4-12 cm with EPR of 3 and ramp time 45 minutes. Chest x-ray 09/2022: revealed no acute cardiopulmonary abnormality Pulmonary function tests done September 16, 2022 : are relatively normal without improvement post bronchodilators. FEV1 of 3.01 or 90% predicted, FVC 3.73 or 95% predicted, FEV1 FVC ratio of 81% She had a sleep study in 2007 that revealed the patient spent 99.8% of the night above 90% saturation. Limb movement index of 19.7, myoclonus arousal index of 3.6, snore index 0.4, she only had 1 apnea. Sleep onset latency was 32 minutes, REM onset latency 305 minutes. She does not get sleepy or fall asleep while driving, patient again warned no driving motorized vehicles or operating heavy machinery while fatigued, sleepy or drowsy, she again voiced understanding. She denies sleep attacks, sleep paralysis, cataplexy or RLS.She has a history of a fatty liver, she has seen Dr Parks.Dyspnea, timing with extreme exertion, minimal in severity. Quality and context sputum is clear, thin, mucousy and rare. Lily Dale of 0.Medications in the past have included albuterol, Symbicort and Spiriva. She is a nonsmoker. Modified Wells criteria of 0. She denies fever, chills, night sweats, dyspnea, hemoptysis, pleurisy, chest pain, chest pressure, productive cough, cough, orthopnea, PND, syncope or palpitations. She voices no cardiopulmonary complaints, no GI complaints today, no neurologic complaints. Lily Dale is 0.Does not wake up rested, has a history of snores and witnessed apneas.Medications include Symbicort, Spiriva and albuterol Q 4 p.r.n.She voices no cardiopulmonary complaints, no GI complaints, no neurologic complaints today. This note was completed using a dictation system. We do our best to minimize mistakes by this dictation system, but some dictation system mistakes cannot be identified. If something does not make sense and/ or appears in error please do not hesitate to contact our office. We can correct the record and/ or clarify for you.The patient was warned no driving motorized vehicles or operating heavy machinery while fatigued, sleepy or drowsy, she voiced understanding and she stated she would not.Patient was instructed to read the side effect package profile very carefully on all medications prescribed, and to stop medications immediately and go to ER if the patient has any problems, she voiced understanding. Patient was instructed to go over side effects /adverse effects / drug interactions with all of the prescribed and [id number] medications with a pharmacist, she again voiced understanding. The patient was instructed to go to ER if the patient does not improve or worsens, she again voiced understanding.Risks of surgery were again explained to the patient and include not limited to: , anesthetic reaction with sickness and , DVT/ PE, aspiration, pneumonia, sepsis, life-threatening arrhythmia, CA, CVA, ventilator dependence lifelong, COPD exacerbation, lifelong worsening pulmonary and/or cardiac status, hypotension, hypertension, etc., the patient voiced understanding. Risks/ benefits of surgery should be explained to the patient per anesthesiologist and surgeon.I told the patient I will be retiring July 2024, the patient voiced understanding.The patient was instructed to follow-up with their primary care provider and/or a manager sql/sleep physician for all their future pulmonary needs/ issues/meds and all of their sleep needs/issues/meds, the patient voiced understanding.The patient voiced understanding of all the above.Patient instructed follow-up with primary care provider and/or OBGYN immediately for her weight loss for further workup and recommendations, she voiced understanding and stated she would. Owen Collins MD [address], [place], [address], [facility] [place] [facility] [place] 03/21/2024 10:42:52 05/17/2024 text/html 28-year-old jonatan zimmerman. She is here for follow up for sleep apnea. She has a history of fibromyalgia, anxiety and PCOD. She is off CPAP, states she can not wear. She turned her CPAP machine back in. She was noncompliant with CPAP and declines CPAP , she turned her CPAP machine back in. I told the patient untreated sleep apnea could result in immediate ill health, sickness, , she voiced understanding and declined CPAP.She states she saw her primary care provider regarding her weight loss and she is going to follow-up with her primary care provider regarding weight loss.She again voices no cardiopulmonary complaints, no GI complaints, and no neurologic complaints. She is holding off on bariatric surgery given her weight loss.She is doing well from a pulmonary standpoint, is again at her baseline. She is her nebulizer machine once a month. Rarely using her albuterol inhaler. She again today denies fever, chills, night sweats, hemoptysis, pleurisy, chest pain, dyspnea, chest pressure, cough, productive sputum, orthopnea, PND, syncope or palpitations.Her previous thyroid function tests were reviewed and were normal and discussed with the patient. Chest x-ray done March 21, 2024: No acute cardiopulmonary abnormality, see full radiology report Chest x-ray done August 05, 2023: No acute cardiopulmonary abnormality Sleep study done June 2023: Apnea plus hypopnea index of 8.2, she spent 70 percent night snoring, spent the entire night above 90 percent saturation, lowest saturation recorded was 92 percent. Home sleep study done August 2022: Apnea plus hypopnea index of 5.7, she spent 61% of the night snoring, mean saturation 97%, spent the entire night above 90 % saturation. Mean heart rate 58. Recommended auto CPAP in a range of 4-20 cm. She was changed to auto CPAP in a range of 4-12 cm with EPR of 3 and ramp time 45 minutes. Chest x-ray 09/2022: revealed no acute cardiopulmonary abnormality Pulmonary function tests done September 16, 2022 : are relatively normal without improvement post bronchodilators. FEV1 of 3.01 or 90% predicted, FVC 3.73 or 95% predicted, FEV1 FVC ratio of 81% She had a sleep study in 2007 that revealed the patient spent 99.8% of the night above 90% saturation. Limb movement index of 19.7, myoclonus arousal index of 3.6, snore index 0.4, she only had 1 apnea. Sleep onset latency was 32 minutes, REM onset latency 305 minutes. She does not get sleepy or fall asleep while driving, patient again warned no driving motorized vehicles or operating heavy machinery while fatigued, sleepy or drowsy, she again voiced understanding. She denies sleep attacks, sleep paralysis, cataplexy or RLS.She has a history of a fatty liver, she has seen Dr Parks.Dyspnea, timing with extreme exertion, minimal in severity. Quality and context sputum is clear, thin, mucousy and rare. Lily Dale of 1.Medications in the past have included albuterol, Symbicort and Spiriva. She is a nonsmoker. Modified Wells criteria of 0. She denies fever, chills, night sweats, dyspnea, hemoptysis, pleurisy, chest pain, chest pressure, productive cough, cough, orthopnea, PND, syncope or palpitations. She voices no cardiopulmonary complaints, no GI complaints today, no neurologic complaints. Lily Dale is 1.Does not wake up rested, has a history of snores and witnessed apneas.Medications include Symbicort, Spiriva and albuterol Q 4 p.r.n.She voices no cardiopulmonary complaints, no GI complaints, no neurologic complaints today. This note was completed using a dictation system. We do our best to minimize mistakes by this dictation system, but some dictation system mistakes cannot be identified. If something does not make sense and/ or appears in error please do not hesitate to contact our office. We can correct the record and/ or clarify for you.The patient was warned no driving motorized vehicles or operating heavy machinery while fatigued, sleepy or drowsy, she voiced understanding and she stated she would not.Patient was instructed to read the side effect package profile very carefully on all medications prescribed, and to stop medications immediately and go to ER if the patient has any problems, she voiced understanding. Patient was instructed to go over side effects /adverse effects / drug interactions with all of the prescribed and [id number] medications with a pharmacist, she again voiced understanding. The patient was instructed to go to ER if the patient does not improve or worsens, she again voiced understanding.Risks of surgery were again explained to the patient and include not limited to: , anesthetic reaction with sickness and , DVT/ PE, aspiration, pneumonia, sepsis, life-threatening arrhythmia, CA, CVA, ventilator dependence lifelong, COPD exacerbation, lifelong worsening pulmonary and/or cardiac status, hypotension, hypertension, etc., the patient voiced understanding. Risks/ benefits of surgery should be explained to the patient per anesthesiologist and surgeon.I told the patient I will be retiring July 2024, the patient voiced understanding.The patient was instructed to follow-up with their primary care provider and/or a manager sql/sleep physician for all their future pulmonary needs/ issues/meds and all of their sleep needs/issues/meds, the patient voiced understanding.The patient voiced understanding of all the above.Patient was again instructed follow-up with primary care provider and/or OBGYN immediately for her weight loss for further workup and recommendations, she voiced understanding and stated she would. Owen Collins MD [address] [place] [address],[address], [place], [address], [facility] & [place] 05/17/2024 10:52:29 07/08/2024 text/html Patient presents for evaluation management of ear pressure sensation. Patient interested in balloon dilation of Eustachian tube. Alberto Stephens MD [address] [place] [address] Drive,[address], [place], [address], [facility] & [place] 07/12/2024 14:21:34 OBGyn Episode No OBEpisode recorded.
[2024-07-27 13:41] VITALS: BP 122/73; PULSE 57; RESP 14; O2SAT 98; BMI 38.0
--- NOTE | 2024-07-27 13:52 | A.OFFVIS_ITS ---
[facility] Disclaimer: The information contained in this section may have been updated after the patient was seen, as this information can be updated by other users. Medical History Migraine Diabetes CRPS (complex regional pain syndrome type I) Social History Smoking Status: Unknown if ever smoked alcohol intake: never current occupational status: other Travel in the last 8 weeks?: None PM Subjective & Objective Subjective Subjective:: Patient is a pleasant 29-year-old female who presents today for follow-up of her lumbar epidural steroid injection L4-L5 on 07/05/2024. Today she rates her pain at a 5 out of 10. Patient does state that she had at least 50% following this injection and feels like it is still helping. Patient states that she does notice that the pain is definitely not as severe as what it was previously. Patient is able to move around easier overall. Patient is also still undergoing physical therapy and feels like this is helping additionally with her back pain. Patient is prescribed methocarbamol 750 mg 3 times a day from our office. She denies any side effects but felt like it still could use additional adjustment. Her Shamar has been reviewed and is appropriate. Review of Systems: General: No recent weight changes, no fever, no sleep disturbances Respiratory: No cough, no shortness of air, no recurring pulmonary infections Cardiovascular/peripheral vascular: No chest pain, no palpitations, no edema, no shortness of breath Gastrointestinal: No new onset incontinence, normal bowel movements reported Genitourinary: No new onset incontinence Musculoskeletal: Low back pain Psychiatric: [Normal mood/affect] Neurological: [Denies weakness in extremities], [denies balance issues] Pain at rest (0-10 scale): 5 Objective Objective:: Physical Exam: General: Alert and oriented x3, no acute distress, pleasant and cooperative Lungs: Respirations even and unlabored, symmetrical chest expansion Eyes: PERRL Musculoskeletal: Flexion and extension of lumbar [spine] somewhat guarded secondary to pain, [antalgic gait noted] Neurological: Speech clear, no gross sensory deficit Has patient had previous pain injection?: Yes Percent improvement in pain since last injection: 50% Conservative treatment options previously tried: Home exercise plan Length of treatment: Longer than 12 weeks and Physical Therapy Length of treatment: Ongoing Meds Home Medications and Allergies Home Medications ?Medication ?Instructions ?Recorded ?Confirmed ?Type albuterol sulfate 2.5 mg/3 mL 2.5 mg inhalation DAILY PRN SOB 04/06/23 07/27/24 History (0.083 %) solution for nebulization albuterol sulfate 90 mcg/actuation 2 puff inhalation QID 04/06/23 07/27/24 History aerosol inhaler (Ventolin HFA) budesonide-formoterol HFA 160 2 puff inhalation BID 04/06/23 07/27/24 History mcg-4.5 mcg/actuation aerosol inhaler (Symbicort) bupropion HCl 100 mg tablet,12 hr 100 mg PO DAILY 04/06/23 07/27/24 History sustained-release cyclobenzaprine 10 mg tablet 10 mg PO TID 04/06/23 07/27/24 History desvenlafaxine succinate 50 mg 50 mg PO DAILY 04/06/23 07/27/24 History tablet,extended release 24 hr hydrocodone 5 mg-acetaminophen 325 1 tab PO Q4H PRN Pain 04/06/23 07/27/24 History mg tablet hydroxyzine HCl 50 mg tablet 50 mg PO HS 04/06/23 07/27/24 History ibuprofen 400 mg tablet 400 mg PO TIDP PRN Pain 04/06/23 07/27/24 History levocetirizine 5 mg tablet 5 mg PO DAILY 04/06/23 07/27/24 History metformin 500 mg tablet 500 mg PO QID 04/06/23 07/27/24 History methenamine mandelate 1 gram tablet 1 g PO BID 04/06/23 07/27/24 History omeprazole 40 mg capsule,delayed 40 mg PO BID 04/06/23 07/27/24 History release ondansetron 4 mg disintegrating 4 mg PO Q6H PRN Nausea 04/06/23 07/27/24 History tablet pregabalin 100 mg capsule 100 mg PO DAILY 04/06/23 07/27/24 History pregabalin 150 mg capsule 150 mg PO DAILY 04/06/23 07/27/24 History pregabalin 200 mg capsule 200 mg PO HS 04/06/23 07/27/24 History propranolol 10 mg tablet 10 mg PO BID 04/06/23 07/27/24 History tiotropium bromide 1.25 2 puff inhalation BID 04/06/23 07/27/24 History mcg/actuation mist for inhalation topiramate 100 mg tablet 100 mg PO DAILY 04/06/23 07/27/24 History baclofen 10 mg tablet See Rx Instructions .Route 02/11/24 07/27/24 Rx .COMPLEX #90 tabs methocarbamol 500 mg tablet 500 mg PO TID #90 tabs 05/05/24 07/27/24 Rx cariprazine 1.5 mg capsule 1.5 mg PO DAILY 06/02/24 07/27/24 History (Vraylar) methocarbamol 750 mg tablet 750 mg PO TID #90 tabs 06/02/24 07/27/24 Rx New Prescriptions to Start Prescriptions: Allergies Allergy/AdvReac Type Severity Reaction Status Date / Time amoxicillin AdvReac Vomiting Verified 06/09/23 13:01 ampicillin AdvReac Verified 06/09/23 13:01 clarithromycin AdvReac Vomiting Verified 06/09/23 13:01 clavulanic acid AdvReac Vomiting Verified 06/09/23 13:01 erythromycin base AdvReac Verified 06/09/23 13:01 potassium AdvReac Vomiting Verified 06/09/23 13:01 sulfamethoxazole AdvReac Verified 06/09/23 13:01 Assessment and Plan *Assessment and plan (1) Lumbar radiculopathy: Status: Acute Category: Medical Code(s): M54.16 - Radiculopathy, lumbar region (2) Low back pain: Status: Acute Qualifiers: Chronicity: chronic Back pain laterality: bilateral Sciatica presence: without sciatica Qualified Code(s): M54.50 - Low back pain, unspecified; G89.29 - Other chronic pain Category: Medical Code(s): M54.50 - Low back pain, unspecified Plan Patient has had significant improvement following her lumbar epidural and does not require any additional injection therapy at this time. Patient will be increased on her methocarbamol to 1000 mg at bedtime with a 1 month supply. Patient will return to clinic in 1 month. Patient is scheduled for a couple procedures from outside providers in August. We will follow-up with this at a later date. Patient has been instructed to contact the clinic with any concerns before the next appointment. Dr. Lindsey has reviewed this note and agrees with this plan of care. This note was dictated using voice recognition software and make contain errors or omissions. All injections are used with Lidocaine, Bupivacaine and dexamethasone. Occasionally urine drug screen is needed to verify patient's compliance with our office pain contract. This is ordered based off specific treatments related to chronic pain with the potential to abuse certain medications.
== END 2024-07-27 23:59 | disposition home or self-care (01) ==
LOC: SC.PAIN 13:28
PROVIDERS: PCP Emergency Medicine; Visit Provider Nurse Practitioner Family
DX: M54.16 Radiculopathy, lumbar region (principal); M54.50 Low back pain, unspecified; G89.29 Other chronic pain; Z79.899 Other long term (current) drug therapy
CPT/HCPCS: 99212; G0463

== ENCOUNTER 2024-09-06 09:40 | Outpatient (POV) | payer MEDICAID, SELFPAY ==
--- OUTSIDE RECORDS SUMMARY | 2024-08-16 09:26 | XMS_ITS | Continuity of Care Document ---
Author Organization [facility] YESSENIA Phone Care Team Providers Care Commercial Lease Administrator Name Role Phone ORI FRANCO Admitting MARCUS ANGELES Primary Care ORI FRANCO Primary Attending ORI FRANCO Unavailable ALLERGIES AND ADVERSE REACTIONS ALLERGIES AND ADVERSE REACTIONS Code System Allergy Substance Adverse Reaction Date Reaction (Severity) Comment Status Reported By Updated By Percocet (Free Text Allergy) Rash (Moderate) Shock active [id number] on August 13, 2024 3:10:18 PM UTC 37749 RXNorm Biaxin Adverse reaction to substance Not Specified active [id number] on August 13, 2024 3:10:18 PM UTC FAMILY HISTORY RELATION: Father Status: LIVING SNOMED-CT Diagnosis Age At Onset Information not available RELATION: Mother Status: Cause of : Unknown Age at : Unknown SNOMED-CT Diagnosis Age At Onset Information not available RESULTS Patient: GAVI RAM Date of : 1995 LABORATORY RESULTS ORDER 100: UA-CULTURE IF IND ICATED (LOINC: 10560-7) ORDER DATE: August 13, 2024 3:22:00 PM UTC Specimen Source: URINE Specimen Type: Urine specime n PERFORMING LAB: [address] [id number] Result Comment: Final Result Date: August 13, 2024 3:28:00 PM UTC (TECH: KCS) LOINC TEST FLAG RESULT REFERENCE RANGE UPDA AL BY 5778-6 Color of Urine N YELLOW YELLOW August 13, 2024 3:28:00 PM UTC (TECH: KCS) 09884-3 Clarity of Urine N CLEAR CLEAR Aug 3:28:00 PM UTC (TECH: KCS) 45962-1 Glucose [Moles/volume] in Urine N NEGATIVE NEGATIVE August 13, 2024 3:28:00 PM UTC (TECH: DigitalScirocco) 1977-8 Bilirubin.total [Presence] in Urine N NEGATIVE NEGATIVE August 13, 2024 3:28:00 PM UTC (TECH: DigitalSciro[employer]) 68117-6 Ketones [Presence] in Urine N NEGATIVE NEGATIVE August 13, 2024 3:28:00 PM UTC (TECH: DigitalSciro[employer]) 2965-2 Specific gravity of Urine N 1.020 1.00 - >=1.030 August 13, 2024 3:28:00 PM UTC (TECH: DigitalScirocco) 81823-8 Blood [Presence] in Urine by Visual N NEGATIVE NEGATIVE August 13, 2024 3:28:00 PM UTC (TECH: [employer]Scirocco) 2756-5 pH of Urine N 6.5 5 - 8 August 13, 2024 3:28:00 PM UTC (TECH: DigitalSciro[employer]) 2887-8 Protein [Presence] in Urine N NEGATIVE NEGATIVE August 13, 2024 3:28:00 PM UTC (TECH: DigitalScirocco) 75547-0 Urobilinogen [Presence] in Urine N 0.2 mg/dL 0.2 - 1.0 August 13, 2024 3:28:00 PM UTC (TECH: DigitalScirocco) 95029-5 Nitrite [Presence] in Urine N NEGATIVE NEGATIVE August 13, 2024 3:28:00 PM UTC (TECH: DigitalScirocco) 66033-5 Leukocyte esterase [Units/volume] in Urine N NEGATIVE NEGATIVE August 13, 2024 3:28:00 PM UTC (TECH: DigitalScirocco) 54433-2 Urinalysis microscopic panel - Urine sediment N NOT INDICATED August 13, 2024 3:28:00 PM UTC (TECH: DigitalScirocco) 59480-9 Collection method - N VOIDED August 13, 2024 3:28:00 PM UTC (TECH: DigitalScirocco) 72379-1 Culture medium [Type] in Isolate N C&S NOT INDIC August 13, 2024 3:28:00 PM UTC (TECH: DigitalScirocco) ORDER 200: URINE HCG PREGNAN CY TEST (LOINC: 2107-1) ORDER DATE: August 13, 2024 3:22:00 PM UTC Specimen Source: URINE Specimen Type: Urine specime n PERFORMING LAB: [address] [id number] Result Comment: Final Result Date: August 13, 2024 3:29:00 PM UTC (TECH: KCS) LOINC TEST FLAG RESULT REFERENCE RANGE UPDA AL BY 2111- Choriogonadotropin.b eta subunit ( test) [Presence] in Urine N NEGATIVE NEGATIVE August 13, 2024 3:29:00 PM UTC (TECH: KCS) 34572-7 Internal control result N PASS PASS August 13, 2024 3:29:00 PM UTC (TECH: KCS) LABORATORY NARRATIVE RESULTS Information is not available RADIOLOGY RESULTS ORDER 300: ABD 2V FLAT ERECT (LOINC: 12672-4) ORDER DATE: August 13, 2024 3:42:00 PM UTC PERFORMING LAB: [address] [id number] Final Result Date: August 13 5:42:24 PM UTC [address] [address] Name: YO GATICA Exam Date: 08/13/2024 : 1995 Age 29 years Gender: F Physician: ORI FRANCO Facility: [facility] HSV: Outpatient Exam: ABD 2V FLAT ERECT XR ABDOMEN 2 VIEWS SUPINE ERECT, 08/13/2024 10:54 AM CDT. INDICATION: Constipation TECHNIQUE: 2 views/2 images submitted for interpretation. COMPARISON: None. FINDINGS: There is no free gas beneath the diaphragm on the upright view. Mild retained stool is present in nondilated loops of large bowel. No abnormal intestinal distention or dilation is identified. Phleboliths are present in the pelvis. The bony structures are unremarkable. IMPRESSION: Mild retained stool without evidence of obstruction. Electronically signed by: Riccardo Marie MD 08/13/2024 01:43 PM EDT Dictated By: Riccardo Marie Transcribed By: Transcribed On: 08/13/2024 1:42 PM Electronically signed by: Riccardo Marie 08/13/2024 Thank you for referring YO GATICA to [facility]. Legally authenticated by ZACKARY Moses 2024-08-13 13:42:24 PATHOLOGY NARRATIVE RESULTS Information is not available MICROBIOLOGY RESULTS No Micro Labs/Results Exist for Patient BLOOD ADMIN RESULTS Information is not available MEDICATIONS HOME MEDICATIONS Status RXNORM NDC Medication Dose Route Frequency Dates Comments Reported By Updated By Active 306194 62403 00863 4 Miralax 17 gram/dose powder 0.0 DAILY Last Dose: [id number] on August 13, 2024 3:10:23 PM [facility] Active 877749 86782 57167 8 Lyrica 100 mg capsule 0.0 QAM Last Dose: [id number] on August 13, 2024 3:10:23 PM [facility] Active 868921 63659 39390 8 Lyrica 150 mg capsule 0.0 QPM Last Dose: [id number] on August 13, 2024 3:10:23 PM [facility] Active 011871 52599 74501 3 Lyrica 200 mg capsule 0.0 BEDTIME Last Dose: [id number] on August 13, 2024 3:10:23 PM [facility] Active 266816 47005 35208 1 hydrocodone- acetaminophe n 10-325 mg tablet 0.0 TAB TID Last Dose: [id number] on August 13, 2024 3:10:23 PM [facility] Active 588140 81104 05002 1 propranolol 10 mg tablet 0.0 QID Last Dose: [id number] on August 13, 2024 3:10:24 PM [facility] Active 0121762 91956 41878 1 albuterol sulfate 90 mcg/actuatio n HFA Aerosol Inhaler 0.0 INH Last Dose: as needed [id number] on August 13, 2024 3:10:24 PM [facility] Active FreeT extMe d Spiriva with HandiHaler inhalation 0.0 DAILY Last Dose: [id number] on August 13, 2024 3:10:24 PM [facility] DISCHARGE MEDICATIONS Status RXNORM NDC Medication Dose Route Frequency Dates Comments Physician Updated By No Discharge Medication Info rmation Available INPATIENT MEDICATIONS Status RXNORM NDC Medication Dose Route Frequency Rat e Quantity Dates Comments Physician Updated By Jen inued 0090 4678 744 magnesium citrate (CITROMA) 1.745 GM/30ML SOLN 300.0 ML ONE TIME ONLY Start: August 13, 2024 4:25:0 0 PM UTC End: August 13, 2024 4:25:0 0 PM UTC [facility] ED on August 13, 2024 4:25:00 PM UTC SOCIAL HISTORY SOCIAL HISTORY SNOMED-CT Social History Element Description Effective Dates Offered Cessation Comment UpdatedBy [id number] Current Tobacco smoking status Never Smoked [id number] on August 13, 2024 3:15:54 PM UTC SOCIAL HISTORY - Gender Sex: Female SOCIAL HISTORY - Status : status i nformation is not available Intention in Next Year: intention information is not available SOCIAL HISTORY - Sexual Behavior Sexual Orientation Gender Identity SNOMED-CT Description SNO MED -CT Description Activity Level No of Partners Partner Type UpdatedBy Information is not available VITAL SIGNS PATIENT VITAL SIGNS This section displays the mo st recent value for each vital sign as of August 16, 2024 1:26:03 PM [place] Loinc Code Vital Sign Activity Date Result Updated By 8302-2 Body height August 13, 2024 3:13:28 PM UTC 167.64 cm (66.0 in) [id number] on August 13, 2024 3:13:[place] [address]-8 Body mass index (BMI ) [Ratio] August 13, 2024 3:13:28 PM UTC 41.561 kg/m2 OCD2050 on August 13, 2024 3:13:28 PM UTC 3140-1 Body Surface Area Derived From Formula August 13, 2024 3:13:28 PM UTC 2.2269 m2 [id number] on August 13, 2024 3:13:28 PM UT 8310-5 Body temperature August 13, 2024 3:00:00 PM UTC 97.0 [degF] [id number] on August 13, 2024 3:13:28 [place] [address]-2 Body weight Measured August 13 3:13:28 PM UTC 116.8 kg (257.0 lb) [id number] on August 13, 2024 3:13:28 PM UT 8462-4 Diastolic blood pressure August 13, 2024 3:00:00 PM UTC 81.0 mm[Hg] [id number] on August 13, 2024 3:13:28 PM UT 8867-4 Heart rate August 13, 2024 4:00:00 PM UTC 75 /min [id number] on August 13, 2024 4:08:09 [place] [address]-1 Oxygen saturation in Arterial blood by Pulse oximetry August 13, 2024 4:00:00 PM UTC 100.0 % [id number] on August 13, 2024 4:08:09 PM [facility] 9279-1 Respiratory rate August 13, 2024 3:00:00 PM UTC 16 /min [id number] on August 13, 2024 3:13:28 PM UT 8480-6 Systolic blood pressure August 13, 2024 3:00:00 PM UTC 159.0 mm[Hg] [id number] on August 13, 2024 3:13:28 PM [facility] PEDIATRIC GROWTH CHART - VITAL SIGNS This section displays Head C ircumference Percentile, Weight for Length Percentile and BMI Percentile Loinc Code Pediatric Measure Age (Months) Result Updat ed By No Pediatric Growth Chart Pe rcentile Information Available. HEALTH CONCERNS Problems Concern Status Health Concern problem infor mation not available. Smoking Status Status Years Used Consumed packs p er day Health Concern smoking histo ry information not available. Family History Concern Status Health Concern family histor y information not available. ENCOUNTERS ENCOUNTER INFORMATION Reason for Visit CONSTIPATION Admission August 13, 2024 2:57:[place] [address] Discharge August 13, 2024 4:32:00 PM [facility] DISC HARGED TO HOME OR SELF CARE ENCOUNTER DIAGNOSES Notes information is not roger ilable. Code System Diagnosis Onset Date Diagnosis information is not available. ABSTRACT DIAGNOSES Code System Diagnosis Updated By K59.00 ICD10 CONSTIPATION, UNSPECIFIED QH I3291 on August 16, 2024 1:25:41 PM [facility] K59.00 ICD10 CONSTIPATION, UNSPECIFIED QH I3291 on August 16, 2024 1:25:41 PM [facility] F41.9 ICD10 ANXIETY DISORDER, UNSPECIFIE D [id number] on August 16, 2024 1:25:41 PM [facility] J45.909 ICD10 UNSPECIFIED ASTHMA, UNCOMPLI CATED [id number] on August 16, 2024 1:25:41 PM UT K21.9 ICD10 GASTRO-ESOPHAGEA L REFLUX DISEASE WITHOUT ESOPHAGITIS [id number] on August 16, 2024 1:25:41 PM [place] F32.A ICD10 DEPRESSION, UNSPECIFIED QHI3 291 on August 16, 2024 1:25:41 PM UT I10 ICD10 ESSENTIAL (PRIMARY) HYPERTEN BRIELLE [id number] on August 16, 2024 1:25:41 PM UT G43.909 ICD10 MIGRAINE, UNSPEC IFIED, NOT INTRACTABLE, WITHOUT STATUS MIGRAINOSUS [id number] on August 16, 2024 1:25:41 PM UT M19.90 ICD10 UNSPECIFIED OSTE OARTHRITIS, UNSPECIFIED SITE [id number] on August 16, 2024 1:25:41 PM UT Z88.5 ICD10 ALLERGY STATUS TO NARCOTIC A GENT [id number] on August 16, 2024 1:25:41 PM UT Z88.1 ICD10 ALLERGY STATUS T O OTHER ANTIBIOTIC AGENTS [id number] on August 16, 2024 1:25:41 PM UT Z79.899 ICD10 OTHER RETIREMENT (CURRENT) DR UG THERAPY [id number] on August 16, 2024 1:25:41 PM UT Z79.891 ICD10 ANSWERING SERVICE AGENT (CURRE NT) USE OF OPIATE ANALGESIC [id number] on August 16, 2024 1:25:41 PM [facility] CARE TEAM Care Commercial Lease Administrator Role ORI FRANCO Admitting [facility] Primary Care ORI FRANCO Primary Attending ORI FRANCO Referring CARE TEAM CARE application chemist Role on Team Status Start Date End Date Update d By JOAN TREJO Referring normal August 13, 2024 3:08:42 PM [facility] August 13, 2024 4:32:00 PM [facility] [id number] on August 13, 2024 3:08:42 PM [facility] JOAN TREJO Attending normal August 13, 2024 3:08:42 PM [facility] August 13, 2024 4:32:00 PM [facility] [id number] on August 13, 2024 3:08:42 PM [facility] JOAN TREJO Admitting normal August 13, 2024 3:08:42 PM [facility] August 13, 2024 4:32:00 PM [facility] [id number] on August 13, 2024 3:08:42 PM [facility] KARTHIK VELAZQUEZ PCP normal August 13 2:58:03 PM [facility] August 13, 2024 4:32:00 PM [facility] [id number] on August 13, 2024 3:08:42 PM [facility]
--- OUTSIDE RECORDS SUMMARY | 2024-08-26 09:00 | XMS_ITS ---
Author Organization [facility] Address [address] [place] [phone] Care Team Providers Care Head Of Drama Name Role Phone Leticia Golden Primary Care Provider REASON FOR VISIT 3 month f/u Social History Sex Assigned At : Social History Observation Description Sex Assigned At Female Encounters Encounter Location Date Provider Diagnosis [facility] [address] [phone] 08/26/2024 Leticia Golden Plan Of Treatment Next Appt Details Provider Name:Leticia Stafford in, 11/25/2024 11:00:00 AM, [address], [place], [place], [phone], Progress Notes * YO GATICADOB:1995 (29 yo F)Acc No.[id number]:08/26/2024 Progress Notes Patient: YO SCHOFIELD Provider: Kathi Golden MD :1995 A ge:29 Y S ex:Female Date:08/26/2024 Address:[address], [place], [place] Structured Data:Appointment Preference : No Preference; [...] Electronic signature of Maik Golden MD on 09/06/2024 at 09:44 AM EDT Sign off status: Pending Visit Status: C ANCPROV (Cancelled by Provider) * Provider: Kathi Golden MD Date: 08/26/2024 Generated for Alex sadler/Elle/Mariansmlee on: 09/06/2024 09:44 AM EDT
--- OUTSIDE RECORDS SUMMARY | 2024-08-30 07:00 | XMS_ITS ---
Author Organization [facility] Address [address] [place], [place] [id number] Care Team Providers Care Lead Cargo Mover Name Role Phone Leticia Golden Primary Care [...] 90 Active Vitamin D (Ergocalciferol) 1.25 MG (16434 UT) TAKE ONE (1) CAPSULE EVERY WEEK; [...] Status Risk Notes Problem Obese class II (466708225534 105) BMI 37.0-37.9, adult (Z68.37) 09/01/2024 Active confirmed Vital Signs Height 66 in 08/30/2024 Weight 232 lbs 08/30/2024 BMI 37.44 kg/m2 08/30/2024 Blood pressure systolic 106 mm Hg 08/31/19 25 Blood pressure diastolic 70 mm Hg 025 Heart Rate 82 /min 08/30/2024 Respiratory Rate 20 /min 08/30/2024 Height-cm 167.64 cm 08/30/2024 Weight-kg 105.23 kg 08/30/2024 Encounters Encounter Location Date Provider Diagnosis [facility] [address] [place], [place] [id number] 08/30/2024 Leticia Chico Fibromyalgia M79.7 ; GERD [...] Provider Name:Leticia Stafford in, 11/25/2024 11:00:00 AM, [address], [place], [place], [id number], Progress Notes * CALLY ART:1995 (29 yo F)Acc No.[id number]:08/30/2024 Progress Notes Patient: YO SCHOFIELD Provider: Katih Golden MD :1995 A ge:29 Y S ex:Female Date:08/30/2024 Address:[address], [place], [id number] Structured Data:Appointment Preference : No Preference; Agricultural [...] more months. Gets gel injections 07/2024. - [facility]. Provider note . .... D epression Screening: [...] a day Vitamin D (Ergocalciferol) 1.25 MG (58511 UT) Capsule TAKE ONE (1) CAPSULE EVERY [...] Once a day , Notes to Pharmacist: [place] DrTaking Pristiq 25 MG Tablet Extended Release [...] day Taking Vitamin D (Ergocalciferol) 1.25 MG (17581 UT) Capsule TAKE ONE (1) CAPSULE EVERY [...] left knee - M25.562 5 . B [place] 37.0-37.9, adult - Z68.37 Plan: * Treatment: [...] Problems: * Billing Information: * Visit Code: 05310 ESTABLISHED PATIENT - INTERMEDIATE SERVICE 15 MIN. * Procedure Codes: * Sign off status: Completed Visit Status: C HK (Check Out) true * Provider: Kathi Golden MD Date: 0 08/30/2024 Generated for Alex sadler/Elle/Ash on: 0 09/06/2024 09:45 AM EDT History and Physical Notes * HPI (History of Present Illness) Category Sub-Category Detail Notes Category Not es General Nurses Note Patient here for 3 month f/u, med refills, L knee pain, feeling like its sticking. See orthopedics doesn't see them for 6 more months. Gets gel injections 07/2024. - [facility] Provider note .... Family Medicine Yo cook [...]
--- OUTSIDE RECORDS SUMMARY | 2024-09-06 09:45 | XMS_ITS | Clinical Summary ---
Author Organization [facility] Address [address] [place] [address] Care Team Providers Care Wood Treating Inspector Name Role Phone Landy Linares MD Primary Care Provide r Unavailable Allergies No known active allergies Medications ALBUTEROL IN Inhale into the lungs Active FLUCONAZOLE PO Take 1 tablet by mouth every 30 days Active ondansetron (ZOFRAN) 4 MG tablet Take by mouth Active polyethylene glycol (GLYCOLAX) 17 g packet Take by mouth Active Cyanocobalamin ER (VITAMIN B12 TR) 1000 MCG TBCR Take by mouth Active HYDROcodone-jaclyn taminophen (NORCO) 10-325 MG per tablet TAKE ONE (1) TABLET BY MOUTH TWICE DAILY NEEDED 2 Active ibuprofen (ADVIL;MOTRIN) 400 MG tablet Take by mouth every 6 hours as needed Active doxycycline hyclate (VIBRAMYCIN) 100 MG capsule TAKE ONE (1) CAPSULE TWICE DAILY FOR 10 DAYS THEN TAKE ONE (1) CAPSULE EVERY DAY 2 Active metoprolol tartrate (LOPRESSOR) 50 MG tablet Take 50 mg by mouth daily Active propranolol (INDERAL) 10 MG tablet TAKE ONE (1) TABLET BY MOUTH THREE TIMES A DAY NEEDED FOR ANXIETY 2 Active buPROPion (WELLBUTRIN) 100 MG tablet Take by mouth Ac tive citalopram (CELEXA) 40 MG tablet TAKE ONE (1) TABLET DAILY 2 Active metFORMIN (GLUCOPHAGE-XR) 500 MG extended release tablet TAKE ONE (1) TABLET BY MOUTH TWICE DAILY 2 Active dicyclomine (BENTYL) 10 MG capsule Take by mouth Active Hyoscyamine Sulfate SL 0.[address] 0.125 mg under the tongue 3 times daily 1 Active omeprazole (PRILOSEC) 20 MG delayed release capsule Take 1 capsule by mouth 2 times daily Active pregabalin (LYRICA) 100 MG capsule Take 100 mg by mouth every morning. 5 Active topiramate (TOPAMAX) 100 MG tablet Take by mouth Active fluticasone (FLONASE) 50 MCG/ACT nasal spray 2 sprays by Nasal route once Active tiotropium (SPIRIVA) 18 MCG inhalation capsule Inhale 18 mcg into the lungs daily Active clotrimazole (LOTRIMIN) 1 % cream APPLY TO THE AFFECTED AND SURROUNDING AREAS OF SKIN BY TOPICAL ROUTE TWO (2) TIMES PER DAY IN THE MORNING AND EVENING 2 Active emtricitabine-t enofovir (TRUVADA) 200-300 MG per tablet Take 1 tablet by mouth daily for 28 days 28 tablet 2 Active dolutegravir sodium (TIVICAY) 50 MG tablet Take 1 tablet by mouth daily for 28 days 28 tablet 2 Active Social History Tobacco Use Types Packs/Day Years Used Date Smoking Tobacco: Never Smokeless Tobacco: Never Alcohol Use Standard Drinks/Week Comments Never 0 (1 standard drink = 0.6 oz pur e alcohol) Comments No Sex and Gender Information Value Date Recorded Sex Assigned at Not on file Legal Sex Female 7:04 PM EST Gender Identity Not on file Sexual Orientation Not on file Last Filed Vital Signs Vital Sign Reading Time Taken Comments Blood Pressure 125/75 06/18/2021 9:38 PM EDT Pulse 86 06/18/2021 9:38 PM EDT Temperature 37.1 C (98.8 F) 06/18/2021 9:38 PM EDT Respiratory Rate 16 06/18/2021 9:38 PM EDT Oxygen Saturation 98% 06/18/2021 9:38 PM EDT Inhaled Oxygen Concentration - - Weight 128.8 kg (284 lb) 06/18/2021 9:38 PM EDT Height 167.6 cm (5' 6 ) 06/18/2021 9:38 PM EDT Body Mass Index 45.84 06/18/2021 9:38 PM EDT Plan of Treatment Not on file Insurance [facility] Care Teams Wood Treating Inspector Relationship Specialty Start Date End Date Landy Linares MD [address] [place] [address] PCP - General 06/13/15
--- OUTSIDE RECORDS SUMMARY | 2024-09-06 09:45 | XMS_ITS | Clinical Summary ---
Author Organization [facility] Address [address] [place] [address] Care Team Providers Care Veneer Jointer Returner Name Role Phone Unavailable Primary Care Provider Unavailabl e Encounters Date Type Department Care Team Description 09/05/2024 Lab Requisition [facility] Oral Pathology [address] [place] [address] Mikel Aly, SHANNA 06/30/2024 Telephone [facility] Room E214 [address] [place] [address] Shruti Wilkins from Last 3 Months Family History Medical History Relation Name Comments Diabetes Mother Hypertension Mother Other cancer Other Relation Name Status Comments Mother Other Social History Tobacco Use Types Packs/Day Years Used Date Smoking Tobacco: Never Alcohol Use Standard Drinks/Week Comments No 0 (1 standard drink = 0.6 oz pur e alcohol) Comments Unknown Sex and Gender Information Value Date Recorded Sex Assigned at Not on file Legal Sex Female 7:52 PM EDT Gender Identity Not on file Sexual Orientation Not on file Last Filed Vital Signs Vital Sign Reading Time Taken Comments Blood Pressure - - Pulse - - Temperature - - Respiratory Rate - - Oxygen Saturation - - Inhaled Oxygen Concentration - - Weight 124 kg (272 lb 8.2 oz) 01/19/2017 11:07 A M EST Height 165.1 cm (5' 5 ) 01/19/2017 11:07 AM EST Body Mass Index 45.35 01/19/2017 11:07 AM EST Plan of Treatment Not on file
--- OUTSIDE RECORDS SUMMARY | 2024-09-06 09:45 | XMS_ITS | Data Portability ---
Author Organization [facility] & [place] Address [address] [place] [address] Care Team Providers Care Pressure Controller Name Role Phone PANKAJ STRICKLAND Primary Care Provider Assessment No assessment recorded. Plan of Treatment Reminders Order Date Submit Date Provider Last Modified By Organization Details Last Modified Time Details Appointments None recorded. Lab T3, free, serum or plasma 2024 025 [facility] (Registration ), [facility] [place] [address] [place], [address], 5 11:50:27 T4, free + T4, total serum 2024 025 [facility] (Registration ), [place], [address], 5 09:46:56 TSH, serum or plasma 2024 025 [facility] [address] (Registration ), [place], [address], 5 09:46:48 urinalysis, dipstick 2023 024 [email or web address] [facility], [address] , [place], [address], 4 14:26:53 Referral None recorded. Procedures None recorded. Surgeries None recorded. Imaging XR, chest, 2 view 2024 025 [facility] (Registration ), [address] [facility] [place], [address], 5 11:24:27 Medication Orders methenamine hippurate 1 gram tablet 2023 024 [email or web address] [facility], [address] [place], [address], 4 15:28:28 Patient TargetsNo targets recorded. Patient InstructionsNo instructions recorded. Reason for Referral None Reported. Results Created Date Observation Date Name Description Value Unit Range Abnormal Flag Note LastModifiedBy Organization Detail LastModifiedTime 11/11/1911/11/2023 urina lysis , dipst ick Leukocytes Negati ve Not Available [facility] [address] , [place], [address], 11/11/2023 14:26:15 11/11/19 24 11/11/2023 urina lysis , dipst ick Nitrite negati ve Not Available [facility] [address] , [place], [address], 11/11/2023 14:26:15 11/11/19 24 11/11/2023 urina lysis , dipst ick Urobilinogen .2 Not Available [facility] [address] , [place], [address], 11/11/2023 14:26:15 11/11/19 24 11/11/2023 urina lysis , dipst ick Protein Negati ve Not Available [facility] [address] , [place], [address], 11/11/2023 14:26:15 11/11/19 24 11/11/2023 urina lysis , dipst ick pH 6.5 Not Available [facility] [address] , [place], [address], 11/11/2023 14:26:15 11/11/19 24 11/11/2023 urina lysis , dipst ick Blood Negati ve Not Available [facility] [address] , [place], [address], 11/11/2023 14:26:15 11/11/19 24 11/11/2023 urina lysis , dipst ick Specific [place] 1.025 Not Available [facility] [address] , [place], [address], 11/11/2023 14:26:15 11/11/19 24 11/11/2023 urina lysis , dipst ick Ketone Negati ve Not Available [facility] [place] [address] [address] , [place], [address], 11/11/2023 14:26:15 11/11/19 24 11/11/2023 urina lysis , dipst ick Bilirubin Negati ve Not Available [facility] [place] [address] , [place], [address], 11/11/2023 14:26:15 11/11/19 24 11/11/2023 urina lysis , dipst ick Glucose Negati ve Not Available [place] [address] [address] , [place], [address], 11/11/2023 14:26:15 11/11/19 24 11/11/2023 urina lysis , dipst ick Appearance Clear Not Available [facility] [place] [address] [address] , [place], [address], 11/11/2023 14:26:15 11/11/19 24 11/11/2023 urina lysis , dipst ick Color Yellow Not Available [place] [address] [address] , [place], [address], 11/11/2023 14:26:15 03/21/19 25 03/21/2024 THYRO ID PANEL W/TSH note SEE NOTE Order ing Provi hortencia: Naima mehta MD Not Available [address] , [place], [address], 03/21/2024 11:50:26 03/21/19 25 03/21/2024 THYRO ID PANEL W/TSH T4 free 0.87 NG/dL 0.76-1 .46 normal This test may be affec betsey by high level s of bioti n, found in some presc ripti on and over- the-c ounte r suppl ement s. Pana ly, patie nts shoul d disco ntinu e bioti n 3 days befor e testi ng. Resul ts obtai denise after recen t bioti n inges tion shoul d be inter prete d with cauti on. Not Available [address] , [place], [address], 03/21/2024 11:50:26 03/21/19 25 03/21/2024 THYRO ID PANEL W/TSH thyroid stimulating hormone 2.56 uIU/m L 0.36-3 .74 normal This test may be affec betsey by high level s of bioti n, found in some presc ripti on and over- the-c ounte r suppl ement s. Pana ly, patie nts shoul d disco ntinu e bioti n 3 days befor e testi ng. Resul ts obtai denise after recen t bioti n inges tion shoul d be inter prete d with cauti on. Not Available [address] Charlene Edouard, [place], [address], 03/21/2024 11:50:26 03/21/19 25 03/21/2024 THYRO ID PANEL W/TSH performing lab SEE NOTE - [facility] R [address] [facility] [address] Not Available [address] , [place], [address], 03/21/2024 11:50:26 03/21/19 25 03/21/2024 T3 FREE note SEE NOTE Order ing Provi hortencia: Naima mehta MD Not Available [address] , [place], [address], 03/21/2024 11:50:26 03/21/19 25 03/21/2024 T3 FREE T3 free 2.94 pg/mL 2.18-3 .98 normal This test may be affec betsey by high level s of bioti n, found in some presc ripti on and over- the-c ounte r suppl ement s. Pana ly, patie nts argelia weir disco ntinu e bioti n 3 days befor e testi ng. Resul ts obtai denise after recen t bioti n inges tion argelia weir be inter prete d with cauti on. Not Available [address] , [place], [address], 03/21/2024 11:50:26 03/21/19 25 03/21/2024 T3 FREE performing lab SEE NOTE ML - [facility] [address] [facility] [address] Not Available [address] , [place], [address], 03/21/2024 11:50:26 03/21/19 25 03/21/2024 XR, chest , 2 view [facility] Name: YO CHAMBERS [facility] Phys: Tucker durham MD, [place] [address] : 1995 Age: 28 Sex: F Acct: [id number] Loc: SaskiaRAD PHONE #: Exam Date: 2024 Status : REG CLI FAX #: [phone] Rad# [id number] Unit# [id number] Admit Date: 2024 EXAMS: CPT CODE: [id number] CHEST 2 VIEWS 94989 CLINIC AL INFORM ATION: Asthma COMPAR MARILYNN: 023 FINDIN GS: PA and hero cervantes projec tions obtain ed. Lungs well expand [...] Date/T etta: 2024 (1119) Techno logist : TG MIRANDA RZekeTZeke Transc ribed Date/T etta: 2024 (1119) Transc riptio nist: DR.HAR RAMOS Electr onic Signat ure Date/T etta: 2024 (1119) Printe d Date/T etta: 2024 (1123) BATCH NO: N/A PAGE 1 Signed Report CC'ed Logic: Orderi ng Provid er: TUCKER SHANNONRE Y Attend ing Provid er: TUCKER SHANNONRE Y Referr ing Provid er: TUCKER DURHAM JEFFRE Y Consul ting Provid er: KARTHIK heart [address] , [place], [address], 03/21/2024 11:26:05 03/21/19 25 08/05/2023 XR, chest No observ ation record ed. Not Available 03/09 15:07:48 05/18/19 25 03/21/2024 XR, chest , 2 view No observ ation record ed. [facility] (Registration ) [address] [place] [address] [place], [address], 05/17/2024 09:52:03 Result Notes Documentation Provider Name and Address Organization Details Recorded Time Xr, Chest, 2 View : [facility] Name: YO GATICA [address] [place] [address] Phys: Mey JUAREZ, [place] [address] : 1995 Age: 28 Sex: F Acct: [id number] Loc: MAHOGANY PHONE #: Exam Date: 03/21/2024 Status: REG CLI FAX #: Rad# [id number] Unit# [id number] Admit Date: 03/21/2024 EXAMS: CPT CODE: [id number] CHEST 2 VIEWS 83928 CLINICAL INFORMATION: Asthma COMPARISON: 09/25/2022 FINDINGS: PA and lateral projections obtained. Lungs well expanded and without infiltrate or effusion. Heart and vascularity within normal limits. No gross osseous pathology. IMPRESSION: 1. No acute cardiopulmonary abnormality. COMMUNICATION: Per this written report This report is generated using voice recognition computer software. Inadvertent errors may have occurred while dictating report. Common sense approach is appreciated and do not hesitate to call for clarification when necessary. at 1119 Reported and signed by: ORI RODGERS M.D. CC: Ky Collins M.D.; Leticia Golden MD Dictated Date/Time: 03/21/2024 (1119) Technologist: Anna GALARZA Transcribed Date/Time: 03/21/2024 (111) Vessel Traffic Officer: Electronic Signature Date/Time: 03/21/2024 (111) Printed Date/Time: 03/21/2024 (1123) BATCH NO: N/A PAGE 1 Signed Report CC'ed Logic: Ordering Provider: MEY SWARTZ Attending Provider: MEY SWARTZ Referring Provider: MEY SWARTZ Consulting Provider: KARTHIK Collins MD [address] [facility],[address], [place], [address], [place] [facility] & [place] 03/21/2024 11:26:05 Problems Name Problem SNOMED Code Status Onset Date Resolution Date Notes Provider Name and Address Organization Details Recorded Time Weight loss 63674810 Active 2024 Crystal Earlywine null, [place] - [place] [facility] [place] 5 10:27:21 Obstructiv e sleep apnea syndrome 59057695 Active 2021 jessie hitch null, [place] [facility] [place] 3 17:22:29 Obstructiv e sleep apnea of adult 4662947487769 Active 2022 jessie hitch null[place] [place] 3 17:22:28 Epigastric pain 40643017 Active 2022 jessie hitch null[place] [facility] [place] 3 17:22:29 Hepatomega ly 47254361 Active 2022 jessie hitch null[place] 3 17:22:29 History of nasal sinus surgery 0801662687068 08 Active jessie hitch null[place] [place] 3 17:22:29 Chronic maxillary sinusitis 62711388 Active jessie hitch null[place] 3 17:22:29 Hepatosple nomegaly 62888202 Active 2022 Joni Parks MD [address] [facility],[address], [place], [address] , [place] 3 14:39:42 Asthma 509754717 Active 2022 Crystal Earlywine null[place] 3 13:26:09 Liver enzymes level above reference range 049584473 Active 2022 Joni Parks MD [address] [place] [address],[place] [address], [place], [address] , [place] - [place] & [place] 3 13:06:57 Disorder of function of stomach 366512664 Active 2023 Carlos Neville DNP, ORTHODONTIC LAB TECHNICIAN, [facility] [address], [place], [address] , [place] & [place] 4 08:32:35 Morbid obesity 392265107 Active 2023 Carlos Neville DNP, ORTHODONTIC LAB TECHNICIAN, [facility] [address], [place], [address] , [place] & [place] 4 08:32:50 Vitamin D deficiency 82596801 Active 2023 Carlos Neville DNP, ORTHODONTIC LAB TECHNICIAN, [facility] [address], [place], [address] , [place] & [place] 4 08:37:39 Cobalamin deficiency 853201855 Active 2023 Carlos Neville DNP, ORTHODONTIC LAB TECHNICIAN, [facility] [address], [place], [address] , [place] 4 08:37:46 Essential hypertensi on 08036034 Active 2023 Carlos Neville DNP, ORTHODONTIC LAB TECHNICIAN, [facility] [address], [place], [address] , [place] 4 15:25:01 Fibromyalg ia 146482589 Active 2023 Carlos Neville DNP, ORTHODONTIC LAB TECHNICIAN, [facility] [address], [place], [address] , [place] & [place] 4 15:25:14 Chronic kidney disease 783695990 Active 2023 Carlos Neville, YEHUDA, ORTHODONTIC LAB TECHNICIAN, [facility] [address], [place], [address] , [place] 15:25:51 Problem Notes None recorded. Procedures Surgical History Date Name Laterality Status Provider Name and Address Organization Details Recorded Time 024 Date of Last Colonoscopy completed Penny Jacquei [place] & [place] 09/28/2023 11:02:19 024 Colonoscopy completed Penny Jacquie [place] 09/28/2023 11:02:40 023 EGD completed Penny Jacquie [place] 09/02/2023 11:30:30 022 Date of Last Pap Smear completed Crystal Earlywine [place] 03/21/2024 10:18:16 022 Most Recent Bone Density completed Crystal Earlywine [place] [facility] [place] 03/21/2024 10:18:16 021 Other completed Penny Jacquie [place] 09/02/2023 11:30:31 018 Colonoscopy completed Penny Jacquie [place] 09/02/2023 11:30:31 002 Sinus Surgery completed Penny Jacquie [place] [facility] [place] 09/02/2023 11:30:31 001 Gastrointestinal Surgery completed Crystal Earlywine [place] [facility] & [place] 06/26/2023 10:24:23 999 Gastrointestinal Surgery completed Shonajackelyn Suarez [place] 07/04/2022 10:43:00 extraction of wisdom tooth completed Shona Suarez [place] 07/04/2022 10:59:47 tonsillectomy completed Carlos Neville, YEHUDA, ORTHODONTIC LAB TECHNICIAN, [facility] [address], [place], [address], [place] 08/04/2023 14:03:06 Removal of adenoids completed Carlos Neville, YEHUDA, ORTHODONTIC LAB TECHNICIAN, [facility] [address], [place], [address], [place] 08/04/2023 14:03:15 Cholecystectomy completed Carlos Lindsey DNP, ORTHODONTIC LAB TECHNICIAN, [facility] [address], [place], [address], [place] 08/04/2023 14:02:57 EGD/Endoscopy completed Shona Suarez [place] - [facility] & [place] 07/04/2022 11:01:19 Colonoscopy completed Ida Fernández [facility] & [place] 08/04/2023 11:10:16 arthroplasty of right elbow completed Carlos Neville DNP, ORTHODONTIC LAB TECHNICIAN, [facility] [address], [place], [address], [place] 08/04/2023 14:04:39 Imaging Results None recorded. Procedure Notes None recorded. Medical Equipment None Reported. Allergies Allergen ID Allergen Name Allergen Category Reaction Reaction Severity Criticality Documentation Date Start Date Code Code System Note Provider Name and Address Organization Details Recorded Time 59852 Augmentin medicatio n vomiting Not available high 01/15/2022 61834 2 RxNorm Penny Jacquie null, [place] [facility] & [place] 4 11:03:07 95737 Biaxin medicatio n vomiting Not available high 01/15/202255555 9 RxNorm Penny Jacquie [place], [place] 4 11:03:26 00037 Keflex medicatio n vomiting Not available high 01/15/202206672 7 RxNorm Penny Jacquie null, [place] [facility] & [place] 4 11:03:56 64733 ampicilli n medicatio n Not available Not available Not available 12/16/20222013 733 RxNorm ADAM Blue [facility] & [place] 4 11:04:29 64489 erythromy lashonda medicatio n Not available Not available [facility] 12/16/20222010 4053 RxNorm ADAM Blue [facility] & [place] 4 11:04:21 03810 clavulani c acid Not available Not available Not available Not available 12/16/20222010 23525 RxNorm ADAM Blue [facility] & [place] 4 11:03:50 42293 sulfameth oxazole medicatio n itching severe Not available 12/16/20222013 77152 RxNorm ADAM Carmona [facility] & [place] 3 13:28:19 99705 clarithro mycin medicatio n vomiting severe Not available 12/16/20222011 36265 RxNorm ADAM Carmona [facility] & [place] 3 13:28:19 69440 egg extract food,medi cation headache severe Not available 12/16/20222011 12673 15 RxNorm ADAM Carmona [facility] & [place] 3 13:28:19 80020 cow milk allergeni c extract food,medi cation Not available Not available Not available 12/16/20222011 93385 5 RxNorm ADAM Carmona [facility] & [place] 3 13:28:19 Medications Name Sig Start Date [...] Available Not Available prednisone 10 mg tablet TAKE 6 TABS ON DAY 1, TAKE 5 TABS ON DAY 2, TAKE 4 TABS ON DAY 3, TAKE 3 TABS ON DAY 4, TAKE 2 TABS ON DAY 5, TAKE 1 ON DAY 6. TAKE WITH FOOD. active Not Available Not Available No t Available nitrofurant oin macrocrysta l 50 mg [...] AND ONE TAB FOUR (4) DAYS LATER active Not Available Not Available No t Available sucralfate 1 gram tablet Take 1 [...] TAKE ONE (1) TABLET BY MOUTH EVERY EIGHT (8) HOURS active Not Available Not Available No t [...] mcg/actuati on aerosol inhaler INHALE 1-2 PUFFS EVERY 4-6 HOURS NEEDED active Not Available [...] completed Not Available Not Available Not Available lactulose 10 gram/15 mL oral solution 07/08 completed Not Available Not Available Not Available pregabalin 100 mg capsule TAKE ONE (1) CAPSULE BY MOUTH EVERY DAY active Not Available Not Available No t Available pregabalin 150 mg capsule TAKE ONE (1) CAPSULE BY MOUTH EVERY DAY active Not Available Not Available No t Available pregabalin 200 mg capsule TAKE ONE (1) CAPSULE BY MOUTH ONE (1) TO THREE (3) HOURS BEFORE BEDTIME active Not Available Not Available No t Available chlorhexidi ne gluconate 0.12 % mouthwash 05/13 completed Not Available Not Available Not Available Amitiza 24 mcg capsule active Not Available Not Available Not Available quetiapine 50 mg tablet 50 mg by oral route. 07/11 completed Not Available Not Available Not Available fenofibrate nanocrystal lized 145 mg tablet TAKE 1 TABLET BY MOUTH ONCE A DAY. active Not Available Not Available No t Available Symbicort 160 mcg-4.5 mcg/actuati on HFA aerosol inhaler INHALE 2 PUFFS BY MOUTH TWICE DAILY active Not Available Not Available No t Available levocetiriz ine 5 mg tablet TAKE 1 TABLET BY MOUTH ONCE A DAY. active Not Available Not Available No t Available desvenlafax ine succinate ER 50 mg tablet,exte nded release 24 hr TAKE 1 TABLET BY MOUTH EACH MORNING [...] Not Available Not Available Vitals Date Recorded Oxygen saturation Oxygen saturation in Arterial blood by Pulse oximetry Heart rate Provider Name and Address Organization Details Last Updated DateTime 03/21/2024 99 % 99 % 70 /min Owen Collins MD [address] [place] [address],[address], [place], [address], [facility] & [place] 03/21/2024 10:41:23 Date Recorded Body height Body mass index (BMI) Body weight Respiratory rate Systolic blood pressure Diastolic blood pressure Provider Name and Address Organization Details Last Updated DateTime 5 165.1 cm 39.3 kg/m2 982974. 8 g 14 /min 118 mm[Hg] 82 mm[Hg] [facility] & [place] 10:17:37 Date Recorded Body height Body mass index (BMI) Body weight Oxygen saturation Oxygen saturation in Arterial blood by Pulse oximetry Heart rate Respiratory rate Systolic blood pressure Diastolic blood pressure Provider Name and Address Organization Details Last Updated DateTime 5 165.1 cm 37.9 kg/m2 656891. 06 g 98 % 98 % 67 /min 12 /min 128 mm[Hg] 78 mm[Hg] [facility] & [place] 5 10:35:37 Date Recorded Body height Body mass index (BMI) Body weight Body temperature Provider Name and Address Organization Details Last Updated DateTime 07/08/2024 165.1 cm 37.8 kg/m2 345307.47 g 97.8 [degF] Jevon Hanley [facility] & [place] 07/08/2024 08:35:24 Date Recorded Body height Body mass index (BMI) Body weight Provider Name and Address Organization Details Last Updated DateTime 08/10/2024 165.1 cm 37.8 kg/m2 749618.47 g Jevon [place] [facility] & [place] 08/10/2024 14:00:12 Date Recorded Body height Body mass index (BMI) Body weight Body temperature Oxygen saturation Oxygen saturation in Arterial blood by Pulse oximetry Heart rate Systolic blood pressure Diastolic blood pressure Provider Name and Address Organization Details Last Updated DateTime 165.1 cm 41.1 kg/m2 526451. 32 g 97.9 [degF] 98 % 98 % 68 /min 115 mm[Hg] 72 mm[Hg] Shona Mariano [facility] & [place] 14:16:15 Social History Question Answer Notes LastModified by Everypost Details LastModified Time Tobacco Smoking Status Never Smoker [facility] [place] 06/11/2022 10:54:09 Do You Have An Advance Directive? Yes Information not available 09/28/2023 If You Are , What Was Your Level Of Alcohol Consumption Prior To ? Occasional Information not available 12/18/2022 Are You Blind Or Do You Have Difficulty Seeing? No Information not available 07/04/2022 What Is Your Level Of Caffeine Consumption? Moderate [email or web address] Information not available 09/09/2023 What Type Of Diet Are You Following? REGULAR [email or web address] Information not available 12/18/2022 What Was The Date Of Your Most Recent Tobacco Screening? 01/12/2022 Information not available 06/26/2023 Are You Passively Exposed To Smoke? Yes [email or web address] Information not available 07/04/2022 How Much Tobacco Do You Smoke? No [email or web address] Information not available 07/04/2022 Has Tobacco Cessation Counseling Been Provided? No [email or web address] Information not available 12/18/2022 How Many Years Have You Smoked Tobacco? 0 [email or web address] Information not available 07/04/2022 Sex: Female Functional Status Question Answer Note LastModified by Everypost Details LastModified Time Do you use any illicit or recreational drugs? No [email or web address] Information not available 06/11/2022 Do you or have you ever used any other forms of tobacco or nicotine? No [email or web address] Information not available 12/18/2022 What is your level of alcohol consumption? Occasional [email or web address] Information not available 07/04/2022 Do you or have you ever used smokeless tobacco? Never used smokeless tobacco Information not available 07/04/2022 What is your exercise level? None Information not available 06/26/2023 Mental Status Question Answer Note LastModified by Organization D etails LastModified Time Do you feel stressed (tense, restless, nervous, or anxious, or unable to sleep at night)? [id number] Information not available 09/28/2023 Family History Relationship Description Onset Age of this Age Resolved Age Notes LastModified by Organization Details LastModified Time Father Heart disease [email or web address] Not available 07/04 10:58:20 Father Coronary arterioscler osis Not available 08/10 13:55:41 Father Chronic obstructive pulmonary disease pt. added direct ly (06/25) [email or web address] Not available 06/26/2023 08:46:20 Father Headache pt. added direct ly (06/25) [email or web address] Not available 06/26/2023 08:46:49 Father Myocardial infarction pt. added direct ly (06/25) [email or web address] Not available 06/26/2023 08:46:57 Father Kidney disease pt. added direct ly (03/20) [email or web address] Not available 03/20/2024 19:27:31 Mother Hypertensive disorder [email or web address] Not available 07/04 10:58:44 Mother Diabetes mellitus [email or web address] Not available 08/10 13:55:41 Mother Chronic obstructive pulmonary disease pt. added [...] History Condition Response Coronary Artery Disease N Gout N None N Colon Cancer N Kidney Stones Y Hyperthyroidism N Hypothyroidism N Depression Y COPD N Diverticulitis/Diverticulosis N Spine Problems Y Obstructive [...] HPV, unspecified formulation 6 completed Not Available formerly [facility] 07/28/2022 18:35:27 HPV, unspecified formulation 6 completed Not Available formerly [facility] 07/28/2022 18:35:27 SARS-COV-2 (COVID-19) vaccine, UNSPECIFIED 1 completed Not Available formerly [facility] 07/28/2022 18:35:27 Past Encounters Encounter ID Performer Location Encounter Start Date Encounter Closed Date Diagnosis/Indication Diagnosis SNOMED-CT Code Diagnosis ICD10 Code Diagnosis Note [id number] MD CLAIRE [facility] [address] [facility] [address] [place] [address] 08/15/2022 08:25:50 08/15/2022 08:45:40 Obstructive sleep apnea of adult 0681869409 103 G47.33 History of obesity 65098 3001 Z91.89 History of asthma 803821 007 Z87.09 [id number] Carmen Stewart NP, [facility] [address] [place] [address] 06/12/2022 15:04:00 06/13/2022 08:26:53 Recurrent urinary tract infection 158767856 N39.0 UA clear todayConti nue Methenamin e 500mg bidRTC in 3 months for f/u with UA [id number] Joni Parks MD [facility] Gastro[facility] erology [address] [place] [address],[address] [address] 07/04/2022 10:21:18 07/04/2022 11:28:08 Epigastric pain 48614990 R10.13 patient's epigastric pain is likely multifacto [...] consider an alternativ e to Ozempic Hepatomegaly 10351920 R1 6.0 patient reports a history of fatty liver, now with hepatic splenomega ly. LFTs normal, set patient up for a Fibroscan for further evaluation . [id number] Joni Parks MD [facility] Gastro[facility] erology [address] [place] [address],[address] [address] 07/10/2022 08:54:48 07/10/2022 09:31:52 Hepatomegaly 57520061 R16.0 patient reports a history of fatty liver, now with hepatic splenomega ly. LFTs normal, set patient up for a Fibroscan for further evaluation . [id number] Joni Parks MD [facility] erology [address] [place] [address],[address] [address] 07/24/2022 09:49:23 07/24/2022 10:35:43 Hepatomegaly 08176723 R16.0 patient reports a history of fatty liver, now with hepatic splenomega ly. LFTs normal, set patient up for a Fibroscan for further evaluation . [id number] Joni Parks MD [facility] Gastroent erology [address] [place] [address] [address] [place] [address] 08/08/2022 13:20:30 08/08/2022 14:44:25 Hepatosplenomegaly 10665488 R16.2 Workup related to hepatic splenomega ly noted on unrelated imaging demonstrat ed normal LFTs, normal fibroscan, acute hepatitis panel HIV CMV and EBV serologies demonstrat ed no active disease. Will check a human growth hormone as enlarged liver explain can be related to human growth hormone abnormalit ies.repeat U/S in 4 months Epigastric pain 26110340 R10.13 The patient's abdominal pain resolved with discontinu ation of Ozempic. Consistent with an Ozempic induced side effect. Recommend avoidance of similar agents in future. If symptoms should recur we would certainly be happy to see the patient back at this time no further workup of this problem is indicated [id number] Carmen Stewart NP, [facility] Urology [facility] [address] [facility],[place] [address] 10/30/2022 14:56:07 10/30/2022 15:15:17 Recurrent urinary tract infection 853219838 N39.0 UA clearConti nue Methenamin e 500mg bidRTC in 6 months for f/u Nocturia 644564745 R35.1 [id number] MD [facility] [address] [place] [address] DR [address] [place] [address] 09/25/2022 09:03:02 09/25/2022 09:28:10 History of obesity 938090216 Z91.89 Obstructiv e sleep apnea of adult 2074968604 103 G47.33 History of asthma 334121 007 Z87.09 [id number] MD [facility] [address] [place] [address] DR CRUZ [address] [place] [address] 01/02/2023 09:50:18 01/02/2023 10:17:41 History of obesity 076767090 Z91.89 Obstructiv e sleep apnea of adult 3195647683 103 G47.33 History of asthma 677422 007 Z87.09 [id number] Joni Parks MD [facility] G[facility] [address] [place] [address],[place] [address] 12/18/2022 12:47:03 12/18/2022 13:20:23 Hepatosplenomegaly 32544785 R16.2 Workup related to hepatic splenomega ly noted on unrelated imaging demonstrat ed normal LFTs, normal fibroscan, acute hepatitis panel HIV, CMV, HGH and EBV serologies demonstrat ed no active disease. repeat U/S in now Liver enzy mes level above reference range 425903754 R74.01 The patient's LFTs are up since [...] Body mass index 40+ - severely obese 409464887 Z68.41 the importance of regular aerobic activity to help with weight control was stressed to the patient. Dietary recommenda tions were also reiterate [id number] Carmen Stewart NP, [facility] [address] [address] [facility] [facility],[place] [address] 05/14/2023 14:18:36 05/14/2023 14:46:13 Recurrent urinary tract infection 892573260 N39.0 UA clearConti nue Methenamin e 500mg bidRTC in 6 months for f/u Nocturia 238188739 R35.1 [id number] MD [facility] [address] [place] [address] [place] [address] 06/26/2023 10:13:06 06/26/2023 10:38:25 History of obesity 438960481 Z91.89 Obstructiv e sleep apnea of adult 9026895871 103 G47.33 History of asthma 448894 007 Z87.09 [id number] Alberto Stephens MD [facility] [address] [place] [address] [address] [place] [address] 07/15/2023 15:26:28 07/15/2023 15:40:41 Ear pressure sensation 519070393 H93.8X9 [id number] Carlos Neville, DNP, ORTHODONTIC LAB TECHNICIAN, [employer]-C [facility] Bariatric s and Adv Surg [address] [facility] [address] [place] [address] 08/04/2023 10:50:57 08/04/2023 14:19:11 Asthma 552342710 J45.909 Obstructiv e sleep apnea of adult 4094734709 103 G47.33 Disorder o f function of stomach 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 I have asked her to sign RUBY in order to get theses results. Morbid obesity 113018840 E66.01 Obesity 257570956 E66.9 Pre-surger y evaluation 360161824 Z01.818 Vitamin D deficiency 347 88240 E55.9 Cobalamin deficiency 190 647969 E53.8 Essential hypertension 30657870 I10 Fibromyalgia 284556065 M 79.7 Chronic ki dney disease 903806887 N18.9 patient will need clearance from her nephrologi st. [id number] [address], LD [facility] Bariatric s and Adv Surg [address] [facility] [address] [place] [address] 08/04/2023 15:03:14 08/04/2023 16:17:19 Essential hypertension 57536720 I10 Morbid obesity 168184673 E66.01 BMI 43.1 Obstructiv e sleep apnea of adult 2945998222 103 G47.33 [id number] MD [facility] [address] [place] [address] [address] [place] [address] 09/03/2023 09:43:47 09/03/2023 10:05:34 History of obesity 023402764 Z91.89 Obstructiv e sleep apnea of adult 5807412761 103 G47.33 History of asthma 968554 007 Z87.09 [id number] Daphney Jang MD [facility] - [facility] [facility] [address] [place] [address] 09/28/2023 10:44:57 09/28/2023 11:41:45 History of nasal sinus surgery 3876373191 27210 Z98.121 [id number] Guillermo Jeong MD [facility] NEW [address] [facility] [address] [place] [address] 09/09/2023 13:43:30 09/09/2023 14:31:30 Pre-surgery evaluation 703379849 Z01.818 Good functional capacity with no prior cardiac history. Patient is low risk for cardiovasc ular complicati ons. No further cardiac testing warranted at this point. Essential hypertension 87989105 I10 Continue current medication . Keep log Low-salt diet < 2 gm Na/day, Regular exercise Weight loss Morbid obesity 817955102 E66.01 Low-carboh ydrate and low-fat diet Increase exercise to 30 minutes a day. Increase fruits and fresh vegetable intake and decrease processed foods and sugars Obstructiv e sleep apnea syndrome 81314647 G47.33 on CPAP [id number] Carmen Stewart, RICHA, S [facility]rology-[address] [place] [address] 11/11/2023 13:54:02 11/11/2023 14:23:59 Recurrent urinary tract infection 621345971 N39.0 UA clearConti nue Methenamin e 500mg bidRTC in 6 months for f/u Nocturia 431649400 R35.1 [id number] MD [facility] [address] [place] [address] [place] [address] 03/21/2024 10:06:53 03/21/2024 10:29:19 History of obesity 610453214 Z91.89 Obstructiv e sleep apnea of adult 9720451888 103 G47.33 History of asthma 115822 007 Z87.09 Weight loss 12983990 R63 .4 [id number] MD [facility] [address] [facility] [place] [address] 05/17/2024 10:08:36 05/17/2024 10:42:05 History of obesity 330071907 Z91.89 Obstructiv e sleep apnea of adult 6969486488 103 G47.33 History of asthma 658467 007 Z87.09 Weight loss 52091682 R63 .4 [id number] Alberto Stephens MD [address] [place] [address] 07/08/2024 07:46:49 07/08/2024 09:11:32 Ear pressure sensation 495036392 H93.8X9 [id number] Alberto Stephens MD [address] [place] [address] 08/10/2024 13:55:21 08/10/2024 14:22:46 Chronic rhinitis 26540924 J31.0 Ear pressu re sensation 260719496 H93.8X9 Health Concerns Section Related Observation LastModified by Organization Detai ls LastModified Time None Recorded Concern Status LastModified by Organization Details LastModified Time None Recorded Advance Directives Directive Y: Payers Insurance Date Sequence Insurance Name Policy Number Policy Ochoa Covered Member ID Ochoa Member ID Guarantor Name 08/07/2024 1 [facility] (MEDICAID HMO) Yo Gatica [id number] Yo Gatica Notes Date Note Type Note Provider Name and Address Organization Details Recorded Time 11/11/2023 text/html 28 yowf RTC for 6 [...] in December by Dr Jamarcus Perez. Carmen Stewart NP, S [address], [place], [address], [facility] - [place] & [place] 11/11/2023 14:27:27 03/21/2024 text/html 28-year-old jonatan zimmerman. [...] sputum is clear, thin, mucousy and rare. [place] of 0.Medications in the past have included albuterol, Symbicort and Spiriva. She is a nonsmoker. Modified Wells criteria of 0. She denies fever, chills, night sweats, dyspnea, hemoptysis, pleurisy, chest pain, chest pressure, productive cough, cough, orthopnea, PND, syncope or palpitations. She voices no cardiopulmonary complaints, no GI complaints today, no neurologic complaints. [place] is 0.Does not wake up rested, has [...] interactions with all of the prescribed and ejoi-kgt-ieoxvip medications with a pharmacist, she again voiced understanding. The patient was instructed to go to ER if the patient does not improve or worsens, she again voiced understanding.Risks of surgery were again explained to the patient and include not limited to: , anesthetic reaction with sickness and , DVT/ PE, aspiration, pneumonia, sepsis, life-threatening arrhythmia, NV, CVA, ventilator dependence lifelong, COPD exacerbation, lifelong worsening pulmonary and/or cardiac status, hypotension, hypertension, etc., the patient voiced understanding. Risks/ benefits of surgery should be explained to the patient per anesthesiologist and surgeon.I told the patient I will be retiring July 2024, the patient voiced understanding.The patient was instructed to follow-up with their primary care provider and/or a quality control assistant/sleep physician for all their future pulmonary needs/ issues/meds and all of their sleep needs/issues/meds, the patient voiced understanding.The patient voiced understanding of all the above.Patient instructed follow-up with primary care provider and/or OBGYN immediately for her weight loss for further workup and recommendations, she voiced understanding and stated she would. Owen Collins MD [address] [place] [address],[address], [place], [address], [facility] - [place] - [place] & [place] 03/21/2024 10:42:52 05/17/2024 text/html 28-year-old jonatan zimmerman. [...] sputum is clear, thin, mucousy and rare. [place] of 1.Medications in the past have included albuterol, Symbicort and Spiriva. She is a nonsmoker. Modified Wells criteria of 0. She denies fever, chills, night sweats, dyspnea, hemoptysis, pleurisy, chest pain, chest pressure, productive cough, cough, orthopnea, PND, syncope or palpitations. She voices no cardiopulmonary complaints, no GI complaints today, no neurologic complaints. [place] is 1.Does not wake up rested, has [...] interactions with all of the prescribed and amqa-jav-vdlbbbf medications with a pharmacist, she again voiced understanding. The patient was instructed to go to ER if the patient does not improve or worsens, she again voiced understanding.Risks of surgery were again explained to the patient and include not limited to: , anesthetic reaction with sickness and , DVT/ PE, aspiration, pneumonia, sepsis, life-threatening arrhythmia, NV, CVA, ventilator dependence lifelong, COPD exacerbation, lifelong worsening pulmonary and/or cardiac status, hypotension, hypertension, etc., the patient voiced understanding. Risks/ benefits of surgery should be explained to the patient per anesthesiologist and surgeon.I told the patient I will be retiring July 2024, the patient voiced understanding.The patient was instructed to follow-up with their primary care provider and/or a quality control assistant/sleep physician for all their future pulmonary needs/ issues/meds and all of their sleep needs/issues/meds, the patient voiced understanding.The patient voiced understanding of all the above.Patient was again instructed follow-up with primary care provider and/or OBGYN immediately for her weight loss for further workup and recommendations, she voiced understanding and stated she would. Owen Collins MD [address] [facility],[address], [place], [address], [facility] & [place] 05/17/2024 10:52:29 07/08/2024 text/html Patient presents for evaluation management of ear pressure sensation. Patient interested in balloon dilation of Eustachian tube. Alberto Stephens MD [address] [place] [address],[address], [place], [address], [facility] & [place] 07/12/2024 14:21:34 08/10/2024 text/html Patient presents for evaluation and management of ear pressure sensation. Patient interested in balloon dilation of Eustachian tube. Patient also states has persistent nasal congestion. Alberto Stephens MD [address] [facility],[address], [place], [address], [facility] & [place] 08/10/2024 14:22:46 OBGyn Episode No OBEpisode recorded.
--- OUTSIDE RECORDS SUMMARY | 2024-09-06 09:45 | XMS_ITS | Clinical Summary ---
Author Organization [facility] Address [address] [place] [address] Care Team Providers Care Technology Training Associate Name Role Phone Leticia Golden MD Primary Care Provider [phone] Source Comments This information has been disclosed to you from confidential records protectedfrom disclosure by state law. You shall make no further disclosure of thisinformation without the specific, written, and informed release of theindividual to whom it pertains, or as otherwise permitted by law. A generalauthorization for the release of medical or other information is not sufficientfor the purposes of therelease of HIV test results or diagnoses. [id number] Medications No known medications Social History Tobacco Use Types Packs/Day Years Used Date Smoking Tobacco: Never Assessed Comments Unknown Sex and Gender Information Value Date Recorded Sex Assigned at Not on file Legal Sex Female 11:06 AM EDT Gender Identity Not on file Sexual Orientation Not on file Plan of Treatment Not on file Insurance [facility] Care Teams Technology Training Associate Relationship Specialty Start Date End Date Leticia Golden MD [address] [place] [address] PCP - General 10/30/20
--- OUTSIDE RECORDS SUMMARY | 2024-09-06 09:45 | XMS_ITS | Encounter Summary ---
Author Organization Healthcare Address [address] [place] [address] Care Team Providers Care Assurance Specialist Name Role Phone Unavailable Primary Care Provider Unavailabl e Encounter Details Date Type Department Care Team (Late st Contact Info) Description 09/05/2024 Lab Requisition [facility] Oral Pathology [address] [place] [address] Mikel Aly, DMD [address] [place] [address] Social History Tobacco Use Types Packs/Day Years [...] as of this encounter Plan of Treatment Pending Results Name Type Priority Associated Diagnoses Date /Time Oral Pathology Exam Pathology and Cytology Routine 09/01/2024 documented as of this encounter Visit Diagnoses Not on filedocumented in this encounter
--- OUTSIDE RECORDS SUMMARY | 2024-09-06 09:45 | XMS_ITS | Clinical Summary ---
Author Organization [facility] Address [address] [place] [address] Care Team Providers Care Paid Search Analyst Name Role Phone Leticia Golden MD Primary Care Provider [phone] Allergies Active Allergy Reactions Criticality Noted Date Comments Amoxicillin-Pot Clavulanate Nausea And Vomiting 08/18/2017 Clarithromycin Nausea And Vomiting 08/18/2017 Doxycycline Nausea And Vomiting 08/18/2017 Erythromycin Nausea Only 08/18/2017 Cephalexin Nausea And Vomiting 08/18/2017 Medications metoprolol (LOPRESSOR) 50 mg tablet Take 50 mg by mouth Daily. Active montelukast (SINGULAIR) 10 mg tablet Take 10 mg by mouth Daily. Active omeprazole (PRILOSEC) [address] capsule Take 40 mg by mouth Daily. Active Mirtazapine (REMERON) 45 mg tablet Take 45 mg by mouth At bedtime. Active cetirizine (ZYRTEC) 10 mg tablet Take 10 mg by mouth Daily. Active Pregabalin (LYRICA) 100 mg Cap Capsule Take 100 mg by mouth Every morning. Active Pregabalin (LYRICA) 150 mg Capsule Take 150 mg by mouth Every evening. Active pregabalin (LYRICA) 200 mg Cap Take 200 mg by mouth At bedtime. Active dicyclomine (BENTYL) 10 mg capsule Take 10 mg by mouth As directed. Active ondansetron (ZOFRAN) 4 mg tablet Take 4 mg by mouth Twice a day as needed for Nausea. Active HYDROcodone-acet aminophen (NORCO) 10-325 mg per tablet Take 1 Tab by mouth Twice a day. Active DULoxetine (CYMBALTA) [address] capsule Take 60 mg by mouth Daily. Active tiotropium (SPIRIVA) 18 mcg inhalation cap Take 18 mcg by inhalation Daily. Active albuterol (PROVENTIL) 2.5 mg /3 mL (0.083 %) nebulization Take 0.5 Vials by nebulization Every 4 hours as needed for Wheezing. Active ALBUTEROL IN Take by inhalation. Active Family History Medical History Relation Name Comments Heart Disease Father COPD Mother Heart Disease Mother Hypertension Mother Relation Name Status Comments Father Alive Mother Social History Tobacco Use Types Packs/Day Years Used Date Smoking Tobacco: Never Smokeless Tobacco: Never Alcohol Use Standard Drinks/Week Comments No 0 (1 standard drink = 0.6 oz pur e alcohol) Comments No Sex and Gender Information Value Date Recorded Sex Assigned at Not on file Legal Sex Female 10:22 AM EDT Gender Identity Not on file Sexual Orientation Not on file Occupation Industry Job Start Date Job End Date disabled Not on file Not on file Not on file Last Filed Vital Signs Vital Sign Reading Time Taken Comments Blood Pressure 134/86 08/18/2017 11:40 AM EDT Pulse 83 08/18/2017 11:40 AM EDT Temperature - - Respiratory Rate 20 08/18/2017 11:40 AM EDT Oxygen Saturation - - Inhaled Oxygen Concentration - - Weight 137.9 kg (304 lb) 08/18/2017 11:40 AM EDT Height 165.1 cm (5' 5 ) 07/15/2017 1:14 PM EDT Body Mass Index 50.59 07/15/2017 1:14 PM EDT Plan of Treatment Health Maintenance Due Date Last Done Comments HEP C SCREENING 1993 PAP SMEAR EVERY 3 YR (Cervical Cancer Screen) 1993 ANNUAL WELLNESS EXAM 1996 COVID-19 Vaccine ( season) 2023 04/01/2021, 07/20/2020, 06/21/2020 INFLUENZA VACCINE (#1) 2024 5, 01/08/2012, 03/25/2011, Additional history exists DTAP/TDAP/TD VACCINE (4 - Td or Tdap) 02/10/2029 02/10/2019, 07/11/2011, 11/29/2008 HEP A VACCINE Aged Out No longer elig ible based on patient's age to complete this topic HIB VACCINE Aged Out No longer eligi ble based on patient's age to complete this topic ROTOVIRUS VACCINE Aged Out No longer eligible based on patient's age to complete this topic Insurance MEDICAID MEDICAID MEDICAID Care Teams Paid Search Analyst Relationship Specialty Start Date End Date Leticia Golden MD [address] [place], [place] [address] [place] [address] PCP - General Family Medicine 04/02/22
--- OUTSIDE RECORDS SUMMARY | 2024-09-06 09:45 | XMS_ITS | Encounter Summary ---
Author Organization [facility] Address [address] [place] [address] Care Team Providers Care Street Supervisor Name Role Phone Landy Linares MD Primary Care Provider Leticia Golden MD Primary Care Provider [phone] Reason for Visit * Reason Onset Date Comments Referral Status 07/31/2017 EMG/NCV Ge 08/11/17@230pm Encounter Details Date Type Department Care Team (Late st Contact Info) Description 07/31/2017 Telephone [facility] [address] [place] [address], [address] [place] [address] Tomas Solano MD [facility] [address] [facility] [address] [place] [address] Referral Status (EMG/NCV Ge 08/11/17@230pm) Social History Tobacco Use Types Packs/Day Years [...] file Not on file Not on file documented as of this encounter Plan of Treatment Not on file documented as of this encounter Visit Diagnoses Not on filedocumented in this encounter Additional Health Concerns Assessment Noted Time PHQ-9 Depression Total Score: 12 018 1:34 PM EDT documented as of this encounter Care Teams Street Supervisor Relationship Specialty [place] [address] [place] [address] PCP - General Family Medicine 06/03/17 04/01/22 Leticia Golden MD [address] [place], [place] [address] [place] [address] PCP - General Family Medicine 04/02/22 documented as of this encounter
--- OUTSIDE RECORDS SUMMARY | 2024-09-06 09:45 | XMS_ITS | Encounter Summary ---
Author Organization [facility] Address [address] [place] [address] Care Team Providers Care Butt Maker Name Role Phone Landy Linares MD Primary Care Provider Leticia Golden MD Primary Care Provider [phone] Reason for Referral * Consultation (Routine) - Closed Specialty Diagnoses / Procedures Referred By Contthomas t Referred To Contact Pain Management Diagnoses Neck pain of over 3 months duration Leticia Golden MD [address] [place] [address] Phone: tel: fax: [facility] [address] [place] [address], [address] [address] Phone: tel: fax: Referral ID Status Reason Start Date Expiration Date Visits Re quested Visits Authorized [id number] Closed 06/22/2017 06/22/2018 1 1 Encounter Details Date Type Department Care Team (Latest Contact Info) Description 06/22/2017 Transcribe Orders Patient Access Center [address] [place] [address] Leticia Golden MD [address] [place] [address] Neck pain of over 3 months duration (Primary Dx) Social History Tobacco Use Types Packs/Day Years Used Date Smoking Tobacco: Never Assessed Comments Unknown Sex and Gender Information Value Date Recorded Sex Assigned at Not on file Legal Sex Female 10:22 AM EDT Gender Identity Not on file Sexual Orientation Not on file documented as of this encounter Plan of Treatment Scheduled Referrals Name Type Priority Associated Diagnoses Order Schedule Ambulatory referral to Pain Clinic Outpatient Referral Routine Neck pain of over 3 months duration Ordered: 06/22/2017 documented as of this encounter Visit Diagnoses Diagnosis Neck pain of over 3 months duration- Primary documented in this encounter Care Teams Butt Maker Relationship Specialty [place] [address] [place] [address] PCP - General Family Medicine 06/03/17 04/01/22 Leticia Golden MD [address] [place] [address] PCP - General Family Medicine 04/02/22 documented as of this encounter
--- OUTSIDE RECORDS SUMMARY | 2024-09-06 09:45 | XMS_ITS | Continuity of Care Document ---
Author Organization [facility] - [place] & [place], [facility] Address [address] [place] [address] [place] [address] Care Team Providers Care Talent Partner Name Role Phone PANKAJ STRICKLAND Primary Care Provider Assessment No assessment recorded. Plan of Treatment Reminders Order Date Submit Date Provider Last Modified By Organization Details Last Modified Time Details Appointments None record ed. Lab None record ed. Referral None record ed. Procedures None record ed. Surgeries None record ed. Imaging None record ed. Medication Orders None record ed. Patient TargetsNo targets recorded. Patient Instructions Encounter Date Encounter Id Patient Instructions Last Modified By Organization Details Last Modified Time 08/10/2024 [id number] I have personall y reviewed the data obtained and entered from the scribe, medical office secretary or nurse for this patient for this patient encounter. The risk/benefit ratio of bilateral middle and inferior turbinate reduction bilateral Eustachian tube dilation with balloon discussed with patient. Patient understands chooses proceed. Consent signed. [email or web address] Not available 08/10/2024 14:21:25 Reason for Referral None Reported. Problems Name Problem SNOMED Code Status Onset Date Resolution Date Notes Provider Name and Address Organization Details Recorded Time Weight loss 82132082 Active 2024 Crystal Earlywine null, [place] - [facility] & [place] 5 10:27:21 Obstructiv e sleep apnea syndrome 64321852 Active 2021 jessie méndez null, [place] - [facility] - [place] & [place] 3 17:22:29 Obstructiv e sleep apnea of adult 3100141743138 Active 2022 jessie hitch null, [place] - [facility] & [place] 3 17:22:28 Epigastric pain 42781965 Active 2022 jessie hitch null, [place] - [facility] - [facility] & [place] 3 17:22:29 Hepatomega ly 78675935 Active 2022 jessie hitch null, [place] - [facility] - [facility] & [place] 3 17:22:29 History of nasal sinus surgery 8454128830767 08 Active jessie hitch null, [place] - [facility] - [facility] & [place] 3 17:22:29 Chronic maxillary sinusitis 56028621 Active jessie hitch null, [place] - [facility] - [facility] & [place] 3 17:22:29 Hepatosple nomegaly 70119404 Active 2022 Joni Parks MD [facility] [employer] [address] [place], [address] , [place] - [facility] - [facility] & [place] 3 14:39:42 Asthma 796719523 Active 2022 Crystal Earlywine null, [place] - [facility] - [facility] & [place] 3 13:26:09 Liver enzymes level above reference range 358008359 Active 2022 Joni Parks MD [facility] [address] [place], [address] , [place] - [facility] - [facility] & [place] 3 13:06:57 Disorder of function of stomach 153776079 Active 2023 Carlos Neville DNP, MARKETING SUPPORT ASSISTANT, SATELLITE TELEVISION INSTALLER-C [address], [place], [address] , [place] - [facility] - [facility] & [place] 4 08:32:35 Morbid obesity 730228851 Active 2023 Carlos Neville DNP, MARKETING SUPPORT ASSISTANT, SATELLITE TELEVISION INSTALLER-C [address], [place], [address] , [place] - [facility] - [place] & [place] 4 08:32:50 Vitamin D deficiency 09976037 Active 2023 Carlos Neville, YEHUDA, MARKETING SUPPORT ASSISTANT, SATELLITE TELEVISION INSTALLER-C [address], [place], [place], [address] [place] [address] , [place] - [facility] - [place] & [place] 4 08:37:39 Cobalamin deficiency 352873787 Active 2023 Carlos Neville DNP, MARKETING SUPPORT ASSISTANT, SATELLITE TELEVISION INSTALLER-C [address], [place], [place], [address] [place] [address] , [place] - [facility] - [place] & [place] 4 08:37:46 Essential hypertensi on 32367556 Active 2023 Carlos Neville DNP, MARKETING SUPPORT ASSISTANT, SATELLITE TELEVISION INSTALLER-C [address], [place], [place], [address] [place] [address] , [place] - [facility] - [place] & [place] 4 15:25:01 Fibromyalg ia 204879621 Active 2023 Carlos Neville DNP, MARKETING SUPPORT ASSISTANT, SATELLITE TELEVISION INSTALLER-C [address], [place], [place], [address] [place] [address] , [place] - [facility] - [place] & [place] 4 15:25:14 Chronic kidney disease 921100452 Active 2023 Carlos Neville DNP, MARKETING SUPPORT ASSISTANT, SATELLITE TELEVISION INSTALLER-C [address], [place], [place], [address] [place] [address] , [place] - [facility] - [place] & [place] 4 15:25:51 Problem Notes None recorded. Procedures Surgical History Date Name Laterality Status Provider Name and Address Organization Details Recorded Time 024 Date of Last Colonoscopy completed Penny Jacquie [place] [facility] - [place] & [place] 09/28/2023 11:02:19 024 Colonoscopy completed Pennydee Martínezence [place] - [facility] - [place] & [place] 09/28/2023 11:02:40 023 EGD completed Penny Jacquie [place] - [facility] & [place] 09/02/2023 11:30:30 022 Date of Last Pap Smear completed Crystal Franniee [place] & [place] 03/21/2024 10:18:16 022 Most Recent Bone Density completed Crystal Earlywine [place] [facility] & [place] 03/21/2024 10:18:16 021 Other completed Penny Martínezence [place] - [facility] - [place] & [place] 09/02/2023 11:30:31 018 Colonoscopy completed Penny Martínezence [place] [facility] & [place] 09/02/2023 11:30:31 002 Sinus Surgery completed Pennygrazyna MartínezJacquie [place] - [facility] - [place] & [place] 09/02/2023 11:30:31 001 Gastrointestinal Surgery completed Crystal Franniee [place] 06/26/2023 10:24:23 999 Gastrointestinal Surgery completed Shona MEDINA - [facility] - [place] & [place] 07/04/2022 10:43:00 extraction of wisdom tooth completed Shona Cerrato [place] - [place] [place] & [place] 07/04/2022 10:59:47 tonsillectomy completed Carlos Neville, YEHUDA, MARKETING SUPPORT ASSISTANT, SATELLITE TELEVISION INSTALLER-C [address] [place] [address], [place] [facility] [place] & [place] 08/04/2023 14:03:06 Removal of adenoids completed Carlos Neville DNP, MARKETING SUPPORT ASSISTANT, SATELLITE TELEVISION INSTALLER-C [address] [place] [address], [place] [facility] [place] & [place] 08/04/2023 14:03:15 Cholecystectomy completed Carlos Lindsey DNP, MARKETING SUPPORT ASSISTANT, SATELLITE TELEVISION INSTALLER-C [address], [place] [address], [place] [facility] [place] & [place] 08/04/2023 14:02:57 EGD/Endoscopy completed Shona MEDINA - [facility] - [place] & [place] 07/04/2022 11:01:19 Colonoscopy completed Ida MEDINA - [facility] - [place] & [place] 08/04/2023 11:10:16 arthroplasty of right elbow completed Carlos Neville, DNP, MARKETING SUPPORT ASSISTANT, SATELLITE TELEVISION INSTALLER-C [address] [facility], [place], [address], [place] [facility] [place] & [place] 08/04/2023 14:04:39 Imaging Results None recorded. Procedure Notes None recorded. Medical Equipment None Reported. Allergies Allergen ID Allergen Name Allergen Category Reaction Reaction Severity Criticality Documentation Date Start Date Code Code System Note Provider Name and Address Organization Details Recorded Time 65944 Augmentin medicatio n vomiting Not available high 01/15/2022 39492 2 RxNorm Penny Jacquie null, [place] - [facility] & [place] 4 11:03:07 71977 Biaxin medicatio n vomiting Not available high 01/15/2022 35070 9 RxNorm Penny Jacquie null, [place] & [place] 4 11:03:26 46551 Keflex medicatio n vomiting Not available high 01/15/2022 02842 7 RxNorm Penny Jacquie [place] [facility] & [place] 4 11:03:56 56334 ampicilli n medicatio n Not available Not available Not available 12/16/20222013 733 RxNorm Penny Jacquie [place] & [place] 4 11:04:29 83485 erythromy lashonda medicatio n Not available Not available high 12/16/20222010 4053 RxNorm Penny Jacquie null, [place] & [place] 4 11:04:21 01462 clavulani c acid Not available Not available Not available Not available 12/16/20222010 38522 RxNorm Pennygrazyna MartínezJacquie null, [place] [facility] & [place] 4 11:03:50 60405 sulfameth oxazole medicatio n itching severe Not available 12/16/20222013 59363 RxNorm ADAM Carmona [facility] & [place] 3 13:28:19 41781 clarithro mycin medicatio n vomiting severe Not available 12/16/20222011 18560 RxNorm ADAM Carmona [facility] & [place] 3 13:28:19 97633 egg extract food,medi cation headache severe Not available 12/16/20222011 82930 15 RxNorm ADAM Carmona [facility] & [place] 3 13:28:19 41028 cow milk allergeni c extract food,medi cation Not available Not available Not available 12/16/20222011 53836 5 [facility] [place] 3 13:28:19 Medications Name Sig Start Date [...] Updated DateTime 08/10/2024 165.1 cm 37.8 kg/m2 288827.47 g Jevon Hanley [place] [facility] - [place] & [place] 08/10/2024 14:00:12 Social History Question Answer Notes LastModified by Organizat ion Details LastModified Time Tobacco Smoking Status Never Smoker [facility], [facility] & [place] 06/11/2022 10:54:09 Do You Have An Advance Directive? Yes Information not available 09/28/2023 If You Are , What Was Your Level Of Alcohol Consumption Prior To ? Occasional [email or web address] Information not available 12/18/2022 Are You Blind Or Do You Have Difficulty Seeing? No Information not available 07/04/2022 What Is Your Level Of Caffeine Consumption? Moderate [email or web address] Information not available 09/09/2023 What Type Of Diet Are You Following? REGULAR [email or web address] Information not available 12/18/2022 What Was The Date Of Your Most Recent Tobacco Screening? 01/12/2022 Information not available 06/26/2023 Are You Passively Exposed To Smoke? Yes [email or web address] Information not available 07/04/2022 How Much Tobacco Do You Smoke? No Information not available 07/04/2022 Has Tobacco Cessation Counseling Been Provided? No Information not available 12/18/2022 How Many Years Have You Smoked Tobacco? 0 Information not available 07/04/2022 Sex: Female Functional Status Question Answer Note LastModified by [employer] Details LastModified Time Do you use any illicit or recreational drugs? No Information not available 06/11/2022 Do you or have you ever used any other forms of tobacco or nicotine? No [email or web address] Information not available 12/18/2022 What is your level of alcohol consumption? Occasional [email or web address] Information not available 07/04/2022 Do you or have you ever used smokeless tobacco? Never used smokeless tobacco [email or web address] Information not available 07/04/2022 What is your exercise level? None Information not available 06/26/2023 Mental Status Question Answer Note LastModified by Organization D etails LastModified Time Do you feel stressed (tense, restless, nervous, or anxious, or unable to sleep at night)? [id number] Information not available 09/28/2023 Family History Relationship Description Onset Age of this Age Resolved Age Notes LastModified by Organization Details LastModified Time Father Heart disease [email or web address] Not available 07/04 10:58:20 Father Coronary arterioscler osis [email or web address] Not available 08/10 13:55:41 Father Chronic obstructive pulmonary disease pt. added direct ly (06/25) [email or web address] Not available 06/26/2023 08:46:20 Father Headache pt. added direct ly (06/25) [email or web address] Not available 06/26/2023 08:46:49 Father Myocardial infarction pt. added direct ly (06/25) [email or web address] Not available 06/26/2023 08:46:57 Father Kidney disease pt. added direct ly (03/20) [email or web address] Not available 03/20/2024 19:27:31 Mother Hypertensive disorder [email or web address] Not available 07/04 10:58:44 Mother Diabetes mellitus [email or web address] Not available 08/10 13:55:41 Mother Chronic obstructive [...] Hyperthyroidism N Kidney or Bladder Problems N GI Problems Y Depression Y COPD N Hypothyroidism N Acne Y Osteoporosis/Osteopenia N Diverticulitis/Diverticulosis N Colon Polyps N Spine Problems Y Obstructive Sleep Apnea Y Anxiety Disorder Y Diabetes Y Obesity Y Bleeding Disorder N Vision or Eye Problems Y Arthritis Y Seizures/Epilepsy N Tuberculosis N Hyperlipidemia N Cancer N Back Problems Y Stroke N Asthma Y Reflux/GERD Y Sleep Apnea Y GERD/Reflux Y Hepatitis N Cirrhosis N Liver Disease N Heart Disease N Psychiatric/Mental Health Condition Y Headaches Y Hypertension Y Kidney Disease N [...] HPV, unspecified formulation 6 completed Not Available [facility] 07/28/2022 18:35:27 HPV, unspecified formulation 6 completed Not Available [facility] 07/28/2022 18:35:27 SARS-COV-2 (COVID-19) vaccine, UNSPECIFIED 1 completed Not Available [facility] 07/28/2022 18:35:27 Past Encounters Encounter ID Performer Location Encounter Start Date Encounter Closed Date Diagnosis/Indication Diagnosis SNOMED-CT Code Diagnosis ICD10 Code Diagnosis Note [id number] Alberto Stephens MD [facility] [address] [place] [address] 08/10/2024 13:55:21 08/10/2024 14:22:46 Chronic rhinitis 51984137 J31.0 Ear pressu re sensation 686762412 H93.8X9 Health Concerns Section Related Observation LastModified by Organization Detai ls LastModified Time None Recorded Concern Status LastModified by Organization Details LastModified Time None Recorded Payers Encounter Date Sequence Insurance Name Policy Number Policy Ochoa Covered Member ID Ochoa Member ID Guarantor Name 08/10/2024 1 [facility] (MEDICAID HMO) Kaitlynn Art [id number] Kaitlynn Art Notes Date Note Type Note Provider Name and Address Organization Details Recorded Time 08/10/2024 text/html Patient presents for evaluation and management of ear pressure sensation. Patient interested in balloon dilation of Eustachian tube. Patient also states has persistent nasal congestion. Alberto Stephens MD [address] [place] [address],[address], [place], [address], [facility] & [place] 08/10/2024 14:22:46 OBGyn Episode No OBEpisode recorded.
--- OUTSIDE RECORDS SUMMARY | 2024-09-06 09:45 | XMS_ITS | Patient Health Record ---
Author Organization [facility] Address [address] [place], [place] [id number] Care Team Providers Care Velvet Weaver Name Role Phone Leticia Golden Primary Care Provider Yola Bustamante [phone] Allergies Allergen (clinical drug ingredient) Drug/Non Drug Allergy documented on EMR Reaction Allergy Type Onset Date Status allergy injections (uncoded) Unknown Allergy Active Results Component Value Reference Range Notes COMPREHENSIVE METABOLIC PANE L Reviewed date:05/30/2024 09:35:13 AM Interpretation: Performing Lab:QPT, [facility] [address], [address] [place], [place] [phone] Jesus Carbone MD Notes/Report: MULTIPLE TESTING PRIORITIES; ROUTINE TESTING TO FOLLOW. 0; 0; 0; 0; 0 Received Date: [id number] GLUCOSE 81 65-99 mg/dL Fasting reference interval UREA NITROGEN (BUN) 15 7-25 mg/dL CREATININE 0.91 0.50-0.97 mg/dL EGFR 87 > OR = 60 mL/min/1.73m2 BUN/CREATININE RATIO SEE NOTE: 6-22 (calc) Not Reported: BUN and Creatinine are within reference range. SODIUM 143 135-146 mmol/L POTASSIUM 4.1 3.5-5.3 mmol/L CHLORIDE 111 98-110 mmol/L CARBON DIOXIDE 26 20-32 mmol/L CALCIUM 9.2 8.6-10.2 mg/dL PROTEIN, TOTAL 6.9 6.1-8.1 g/dL ALBUMIN 4.5 3.6-5.1 g/dL GLOBULIN 2.4 1.9-3.7 g/dL (calc) ALBUMIN/GLOBULIN RATIO 1.9 1.0-2.5 (calc) BILIRUBIN, TOTAL 0.3 0.2-1.2 mg/dL ALKALINE PHOSPHATASE 25 31-125 U/L AST 14 10-30 U/L ALT 12 6-29 U/L CBC (INCLUDES DIFF/PLT) Reviewed date:05/30/2024 09:22:47 AM Interpretation: Performing Lab:QPT, [facility] [place] [address], [address] [place], [place] [phone] Jesus Carbone MD Notes/Report: Received Date: 0; 0; 0; 0; 0 MULTIPLE TESTING PRIORITIES; ROUTINE TESTING TO FOLLOW. WHITE BLOOD CELL COUNT 7.3 3.8-10.8 Thousand/uL RED BLOOD CELL COUNT 4.47 3.80-5.10 Million/uL HEMOGLOBIN 12.7 11.7-15.5 g/dL HEMATOCRIT 38.4 35.0-45.0 % MCV 85.9 80.0-100.0 fL MCH 28.4 27.0-33.0 pg MCHC 33.1 32.0-36.0 g/dL For adults, a slight decrease in the calculated MCHC value (in the range of 30 to 32 g/dL) is most likely not clinically significant; however, it should be interpreted with caution in correlation with other red cell parameters and the patient's clinical condition. RDW 12.8 11.0-15.0 % PLATELET COUNT 279 140-400 Thousand/uL MPV 11.4 7.5-12.5 fL ABSOLUTE NEUTROPHILS 3066 5399-4397 cells/uL ABSOLUTE LYMPHOCYTES 3504 850-3900 cells/uL ABSOLUTE MONOCYTES 489 200-950 cells/uL ABSOLUTE EOSINOPHILS 168 15-500 cells/uL ABSOLUTE BASOPHILS 73 0-200 cells/uL NEUTROPHILS 42 LYMPHOCYTES 48.0 MONOCYTES 6.7 EOSINOPHILS 2.3 BASOPHILS 1.0 TSH W/REFLEX TO FT4 Reviewed date:05/30/2024 09:22:47 AM Interpretation: Performing Lab:QPT, [facility] [place] [address], [address] [place], [place] [phone] Jesus Carbone MD Notes/Report: MULTIPLE TESTING PRIORITIES; ROUTINE TESTING TO FOLLOW. 0; 0; 0; 0; 0 Received Date: TSH W/REFLEX TO FT4 1.38 Reference Range > or = 20 Years 0.40-4.50 Ranges First trimester 0.26-2.66 Second trimester 0.55-2.73 Third trimester 0.43-2.91 DRUG MONITORING TEMPLATE Reviewed date:05/30/2024 09:22:47 AM Interpretation: Performing Lab:[facility] [place] [address], [address] [place], [place] [phone] Jesus Carbone MD Notes/Report: SPLIT 05/27/2024 FROM [id number] Received Date: Notes and Comments This drug testing is for medical treatment only. Analysis was performed as non-forensic testing and these results should be used only by healthcare providers to render diagnosis or treatment, or to monitor progress of medical conditions. Opiates Notes: Hydrocodone, Norhydrocodone, Hydromorphone detected is consistent with the use of the drug Hydrocodone. Hydromorphone detected is consistent with the use of the drug Hydromorphone. Hydromorphone can be a prescribed drug and is also a metabolite of Hydrocodone. Pregabalin Notes: Pregabalin detected is consistent with the use of the drug Pregabalin. LDT Notes: Confirmation tests were developed and their analytical performance characteristics have been determined by [facility] It has not been cleared or approved by the FDA. This assay has been validated pursuant to the CLIA regulations and is used for clinical purposes. Healthcare Providers needing Interpretation assistance, please contact us at [phone] ( ) M-F, 8am to 10pm EST DRUG MONITOR, PANEL 1, W/CON F, URINE Reviewed date:05/30/2024 09:22:24 AM Interpretation: Performing Lab:[facility] [place] [address], [address] [place], [place] [phone] Jesus Carbone MD Notes/Report: Received Date: [id number] SPLIT 05/27/2024 FROM [id number] Amphetamines NEGATIVE <500 ng/mL Barbiturates NEGATIVE <300 ng/mL Benzodiazepines NEGATIVE <100 ng/mL Cocaine Metabolite NEGATIVE <150 ng/mL Marijuana Metabolite NEGATIVE <20 ng/mL Methadone Metabolite NEGATIVE <100 ng/mL Opiates POSITIVE <100 ng/mL Codeine NEGATIVE <50 ng/mL Hydrocodone 1150 <50 ng/mL Hydromorphone 122 <50 ng/mL Morphine NEGATIVE <50 ng/mL Norhydrocodone 4710 <50 ng/mL Opiates Comments See Opiates Notes, LDT Notes Oxycodone NEGATIVE <100 ng/mL Phencyclidine NEGATIVE <25 ng/mL Creatinine 121.5 > or = 20.0 mg/dL pH 5.4 4.5-9.0 Oxidant NEGATIVE <200 mcg/mL DRUG MONITOR, PREGABALIN, QN , URINE Reviewed date:05/30/2024 09:22:31 AM Interpretation: Performing Lab:QPT, [facility] [place] [address], [address] [place], [place] [phone] Jesus Carbone MD Notes/Report: Received Date: [id number] SPLIT 05/27/2024 FROM [id number] Pregabalin >[id number] <1000 ng/mL Pregabalin Comments See Preg abalin Notes, LDT Notes COMPREHENSIVE METABOLIC PANE L Reviewed date:12/14/2023 10:22:01 AM Interpretation: Performing Lab:QPT, [facility] [place] [address] , [address] [place], [place] [phone] Jesus Carbone MD Notes/Report: MULTIPLE TESTING PRIORITIES; ROUTINE TESTING TO FOLLOW. 0; 0; 0; 0 Received Date: [id number] GLUCOSE 85 65-99 mg/dL Fasting reference interval UREA NITROGEN (BUN) 13 7-25 mg/dL CREATININE 0.80 0.50-0.97 mg/dL EGFR 102 > OR = 60 mL/min/1.73m2 BUN/CREATININE RATIO SEE NOTE: 6-22 (calc) Not Reported: BUN and Creatinine are within reference range. SODIUM 143 135-146 mmol/L POTASSIUM 4.3 3.5-5.3 mmol/L CHLORIDE 111 98-110 mmol/L CARBON DIOXIDE 23 20-32 mmol/L CALCIUM 8.9 8.6-10.2 mg/dL PROTEIN, TOTAL 6.8 6.1-8.1 g/dL ALBUMIN 4.3 3.6-5.1 g/dL GLOBULIN 2.5 1.9-3.7 g/dL (calc) ALBUMIN/GLOBULIN RATIO 1.7 1.0-2.5 (calc) BILIRUBIN, TOTAL 0.3 0.2-1.2 mg/dL ALKALINE PHOSPHATASE 30 31-125 U/L AST 16 10-30 U/L ALT 12 6-29 U/L CBC (INCLUDES DIFF/PLT) Reviewed date:12/14/2023 10:21:49 AM Interpretation: Performing Lab:QPT, [facility] [place] [address], [address] [place], [place] [phone] Jesus Carbone MD Notes/Report: Received Date: [id number] 0; 0; 0; 0 MULTIPLE TESTING PRIORITIES; ROUTINE TESTING TO FOLLOW. WHITE BLOOD CELL COUNT 7.3 3.8-10.8 Thousand/uL RED BLOOD CELL COUNT 4.94 3.80-5.10 Million/uL HEMOGLOBIN 14.0 11.7-15.5 g/dL HEMATOCRIT 42.8 35.0-45.0 % MCV 86.6 80.0-100.0 fL MCH 28.3 27.0-33.0 pg MCHC 32.7 32.0-36.0 g/dL For adults, a slight decrease in the calculated MCHC value (in the range of 30 to 32 g/dL) is most likely not clinically significant; however, it should be interpreted with caution in correlation with other red cell parameters and the patient's clinical condition. RDW 12.7 11.0-15.0 % PLATELET COUNT 285 140-400 Thousand/uL MPV 11.1 7.5-12.5 fL ABSOLUTE NEUTROPHILS 3227 3570-5958 cells/uL ABSOLUTE LYMPHOCYTES 3329 850-3900 cells/uL ABSOLUTE MONOCYTES 431 200-950 cells/uL ABSOLUTE EOSINOPHILS 263 15-500 cells/uL ABSOLUTE BASOPHILS 51 0-200 cells/uL NEUTROPHILS 44.2 LYMPHOCYTES 45.6 MONOCYTES 5.9 EOSINOPHILS 3.6 BASOPHILS 0.7 URINALYSIS, COMPLETE W/REFLE X TO CULTURE Reviewed date:12/14/2023 10:21:22 AM Interpretation: Performing Lab:QPT, [facility] [place] [address], [address] [place], [place] [phone] Jesus Carbone MD Notes/Report: Received Date: [id number] SPLIT 12/11/2023 FROM [id number] COLOR YELLOW YELLOW APPEARANCE CLEAR CLEAR SPECIFIC GRAVITY 1.025 1.001-1.035 PH 6.0 5.0-8.0 GLUCOSE NEGATIVE NEGATIVE BILIRUBIN NEGATIVE NEGATIVE KETONES NEGATIVE NEGATIVE OCCULT BLOOD NEGATIVE NEGATIVE PROTEIN NEGATIVE NEGATIVE NITRITE NEGATIVE NEGATIVE LEUKOCYTE ESTERASE NEGATIVE NEGATIVE WBC 0-5 < OR = 5 /HPF RBC NONE SEEN < OR = 2 /HPF SQUAMOUS EPITHELIAL CELLS 6-10 < OR = 5 /HPF BACTERIA NONE SEEN NONE SEEN /HPF CALCIUM OXALATE CRYSTALS MODERATE NONE OR FEW /HPF HYALINE CAST NONE SEEN NONE SEEN /LPF HCG,TOTAL,QL W/REFL TO QN Reviewed date:12/14/2023 10:22:39 AM Interpretation: Performing Lab:QPT, [facility] [address], [address] [place] [address] Jesus Carbone MD Notes/Report: Received Date: [id number] 0; 0; 0; 0 MULTIPLE TESTING PRIORITIES; ROUTINE TESTING TO FOLLOW. HCG, TOTAL, QL NEGATIVE See Note: Reference Range: Reference Range Non-: Negative : Positive REFLEXIVE URINE CULTURE Reviewed date:12/14/2023 10:21:32 AM Interpretation: Performing Lab:QANDREINA, [facility] [address], [address] [place] [address] Jesus Carbone MD Notes/Report: Received Date: [id number] SPLIT 12/11/2023 FROM [id number] REFLEXIVE URINE CULTURE NO C ULTURE INDICATED TEST AUTHORIZATION Reviewed date:10/19/2023 09:13:38 AM Interpretation: Performing Lab:YURI, [facility] [place] [id number] [id number] Edin Jeong Notes/Report: Received Date: [id number] 0; 0 TEST NAME: ORAL FLUID DRUG SCREEN TEST CODE: [id number] CLIENT CONTACT: DR. GOLDEN REPORT ALWAYS MESSAGE SIGNATURE The laboratory testing on this patient was verbally requested or confirmed by the ordering physician or his or her authorized independent sales representative after contact with an employee of [facility] Federal regulations require that we maintain on file written authorization for all laboratory testing. Accordingly we are asking that the ordering physician or his or her authorized independent sales representative sign a copy of this report and promptly return it to the senior private client advisor. Signature: COMMENT Please fax this signed form to [phone]. Please do not attempt to return this document by other methods. Documents will not be viewed by a independent sales representative. Please do not use this fax number for other service requests. DRUG TOX MONITORING 1, W/CON F, ORAL FLUID Reviewed date:10/19/2023 09:13:31 AM Interpretation: Performing Lab:DELILAH, [facility]/Maribell Miner [id number] [address], [id number] Pascual Jackson M.D.,PhD Notes/Report: Received Date: 0; 0 Amphetamines NEGATIVE <10 ng/mL Barbiturates NEGATIVE <10 ng/mL Benzodiazepines NEGATIVE <0.50 ng/mL Buprenorphine NEGATIVE <0.10 ng/mL Cocaine NEGATIVE <5.0 ng/mL Fentanyl NEGATIVE <0.10 ng/mL Heroin Metabolite NEGATIVE <1.0 ng/mL Marijuana NEGATIVE <2.5 ng/mL MDMA NEGATIVE <10 ng/mL Meprobamate NEGATIVE <2.5 ng/mL Methadone NEGATIVE <5.0 ng/mL Nicotine Metabolite NEGATIVE <5.0 ng/mL Opiates POSITIVE <2.5 ng/mL Codeine Negative <2.5 ng/mL Dihydrocodeine 14.7 <2.5 ng/mL Dihydrocodeine is a minor metabolite of hydrocodone as well as a prescribed drug. Hydrocodone 92.3 <2.5 ng/mL Hydrocodone is a minor metabolite of codeine as well as prescribed drug. Hydrocodone is a pharmaceutical impurity of oxycodone (up to 1%). Hydromorphone Negative <2.5 ng/mL Morphine Negative <2.5 ng/mL Norhydrocodone 11.6 <2.5 ng/mL Norhydrocodone is a metabolite of hydrocodone. Noroxycodone Negative <2.5 ng/mL Oxycodone Negative <2.5 ng/mL Oxymorphone Negative <2.5 ng/mL Phencyclidine NEGATIVE <10 ng/mL Tapentadol NEGATIVE <5.0 ng/mL Tramadol NEGATIVE <5.0 ng/mL Zolpidem NEGATIVE <5.0 ng/mL For additional information, please refer to http://education.iJoule/faq/AVR100 (This link is being provided for informational/ educational purposes only.) This drug testing is for medical treatment only. Analysis was performed as non-forensic testing and these results should be used only by healthcare providers to render diagnosis or treatment, or to monitor progress of medical conditions. For assistance with interpreting these drug results, please contact a [facility] Toxicology Specialist: [phone] ( ), M-F, 8am-6pm EST. These tests were developed and their analytical performance characteristics have been determined by [facility] They have not been cleared or approved by the FDA. These assays have been validated pursuant to the CLIA regulations and are used for clinical purposes. Reason For Referral Reason Referral to dietitia n for improved nutrition and to evaluate unexplained weight loss Diagnosis 1 Weight loss, uninten tional (R63.4) Referral Organization [facility] Referring Provider First Name Leticia Referring Provider Last Name [place] Referring Provider Speciality General ph ysician Referred Provider Specialty Dietitian General Notes Leticia Golden 05:22:02 PM >Jeane Howard - see TE that I sent you, Portia Blair (Monae) 06/27/2024 09:58:25 AM >Per Katie Dennis at the Diatetic office of [facility] Jeane Howard only handles In-patient cases. Katie handles all out-patient services. The referral has been faxed . The patient has been notified by a voicemail and referral letter. Referral Priority Routine Medications Medication SIG (Take, Route, Frequency, Duration) Notes Start Date End Date Status Hydrocortisone 2.5 % 1 application Externally Once a day as needed Active Naloxone HCl 4 MG/0.1ML as directed Nasally 2023 Active Pregabalin 200 MG 1 capsule 1 to 3 hours before bedtime Orally Once a day; Duration: 30 days 05/27/2024 Active methylPREDNISolone 4 MG as directed Orally 025 Active Naloxone HCl 4 MG/0.1ML as directed Nasally 2023 Active Dicyclomine HCl 10 MG TAKE 2 CAPSULES BY MOUTH THREE TIMES DAILY; Duration: 90 Active Vitamin D (Ergocalciferol) 1.25 MG (83450 UT) TAKE ONE (1) CAPSULE EVERY WEEK; Duration: 28 Active Ondansetron HCl 4 MG 1 tablet Orally Once a day; Duration: 30 days Active Linzess 145 MCG 1 capsule at least 30 minutes before the first meal of the day on an empty stomach Orally Once a day [address] Active Pristiq 25 MG 1 tablet Orally Once a day Active Vraylar 1.5 MG 1 capsule Orally Once a day; Duration: 30 days 05/27/2024 Active Topiramate 100 MG 1 tablet Orally Once a day; Duration: 30 day(s) Active Omeprazole 20 MG TAKE ONE (1) CAPSULE BY MOUTH ONCE DAILY 30 MINUTES BEFORE MORNING MEAL; Duration: 90 Active hydrOXYzine HCl 50 MG 1 tablet as needed Orally every 6 hrs; Duration: 90 days as needed Active Spiriva Respimat 1.25 MCG/ACT 2 puffs Inhalation Once a day; Duration: 90 days as needed Active Propranolol HCl 10 MG 1 tablet Orally three times a day; Duration: 90 days Active Wellbutrin 100 MG 1 tablet Orally once a day; Duration: 90 days Active Silver sulfADIAZINE 1 % APPLY TO AFFECTE D AREA ONCE DAILY NEEDED; Duration: 30 days Active Vitamin B-12 1000 MCG TAKE 1 TABLET BY MOUTH ONCE A DAY.; Duration: 30 Active Pregabalin 150 MG 1 capsule Orally Once a day; Duration: 30 days 09/01/2024 Active Albuterol Sulfate (2.5 MG/3ML) 0.083% 3 ml as needed Inhalation every 6 hrs; Duration: 90 days as needed Active Pregabalin 100 MG 1 capsule Orally Once a day; Duration: 30 days 09/01/2024 Active Symbicort 80-4.5 MCG/ACT 2 puffs Inhalat ion Once a day; Duration: 90 days as needed Active Sucralfate 1 GM 1 tablet on an empty stomach Orally three times daily; Duration: 15 days 05/27/2022 Active Promethazine HCl 25 MG 1 tablet as neede d Orally every 6 hrs; Duration: 90 days 05/27/2022 Active Diclofenac Sodium 1 % 2 gms to affected area Externally 4 times daily 07/02/2023 Active HYDROcodone-Acetaminophen 10-325 MG 1 Oral every 8 hours; Duration: 30 days . 08/08/2024 Active Social History Tobacco Use: Social History Observation Description Date Details (start date - stop date) Never Smoker NA - NA Sex Assigned At : Social History Observation Description Sex Assigned At Female Alcohol Screen (Audit-C) Question Answer Notes Did you have a drink contain ing alcohol in the past year? Yes How often did you have a dri nk containing alcohol in the past year? Never (0 point) How many drinks did you have on a typical day when you were drinking in the past year? 1 or 2 drinks (0 point) How often did you have 6 or more drinks on one occasion in the past year? Never (0 point) Points 0 Interpretation Negative Tobacco Question Answer Notes Are you a smoker? Non-smoker PRAPARE Question Answer Notes Date Completed/Updated: 07/02/2023 What is your current housing situation? I have h ousing Are you worried about losing your housing? No What is the highest level of school that you have finished? Less than a high school degree What is your current work situation? Oth erwise unemployed but not seeking work (ex. student, retired, disabled, unpaid primary career coach) In the past year, have you o r any family members you live with been unable to get any of the following when it was really needed? Check all that apply I do not have problems meeting my needs Has lack of transportation k ept you from medical appointments, meetings, work or from getting things needed for daily living? No How often do you see or talk to people that you care about and feel close to? (For example: talking to friends on the phone, visiting friends or family, going to taoist or club meetings) More than 5 times a week How stressed are you? Stress is when someone feels tense, nervous, anxious, or can\t sleep at night because their mind is troubled Very much In the past year have you sp ent more than 2 nights in a row in a usp, nursing home, usp center, or juvenile correctional facility? No Are you a refugee? No What country are you from? [place] Do you feel physically and e motionally safe where you currently live? Yes In the past year, have you b een afraid of your partner or ex-partner? No PRAPARE Score: 7 OPIOID Risk Tool (2018 Edition) Question Answer Notes Family Hx Alcohol? No Family Hx Illegal Drugs? No Family Hx Rx Drugs? No Personal Hx Alcohol? No Personal Hx Illegal Drugs? No Personal Hx Rx Drugs? No Age between 16-45 years? Yes History of Preadolescent Sexual Abuse? No ADD, OCD, Bipolar, Schizophrenia? No Depression? No TOTAL SCORE 1 Risk Level for Opioid Use low AUDIT-C (Standard) Question Answer Notes Did you have a drink containing alcohol in the p ast year? No Points 0 Interpretation Negative Section Notes: non-smoker non-smoker non-smoker non-smoker non-smoker non-smoker Problems Problem Type SNOMED Code ICD Code Onset Dates Problem Status W/U Status Risk Notes Problem Obese class II (875472604889168) BMI 36.0-36.9,adult (Z68.36) 05/28/19 25 Active confirmed Problem Obese class II (757556573429730) BMI 37.0-37.9, adult (Z68.37) 09/02/19 25 Active confirmed Problem Obese class II (944300514760622) BMI 39.0-39.9,adult (Z68.39) 02/21/20 24 Active confirmed Problem Chronic pain (68883846) Other chronic pain (G89.29) Active confirmed Problem Fibromyalgia (547799621) Fibromyalgia (M79.7) Active confirmed Problem Morbid obesity (807395450) Morbid obesity (E66.01) Active confirmed Problem Polycystic ovary syndrome (disorder) (591842935) PCOS (polycystic ovarian syndrome) (E28.2) 03/15/19 11 Active confirmed Problem Uncomplicated mild persistent asthma (659312955) Mild persistent asthma without complication (J45.30) Active confirmed Problem Amenorrhea (18022042) Amenorrhea (N91.2) Active confirmed Problem Irritable bowel syndrome (72611957) IBS (irritable bowel syndrome) (K58.9) 05/18/19 11 Active confirmed Problem Osteoarthritis of knee (207731202) Primary osteoarthritis of both knees (M17.0) Active confirmed Problem Excessive and frequent menstruation (306152521) Menorrhagia with regular cycle (N92.0) Active confirmed Problem Gingivitis (73314101) Gingivitis (K05.10) Active confirmed Problem Gastroesophageal reflux disease (073669185) GERD without esophagitis (K21.9) Active confirmed Problem Moderate major depression, single episode (87642170) Moderate major depression, single episode (F32.1) Active confirmed Problem Body mass index 35.00 to 39.99 (863413362175029) Body mass index [BMI] 39.0-39.9, adult (Z68.39) Active confirmed Problem Body mass index 40+ - severely obese (483100719) Body mass index [BMI] 45.0-49.9, adult (Z68.42) Active confirmed Problem Body mass index 40+ - severely obese (544393159) Body mass index [BMI] 40.0-44.9, adult (Z68.41) Active confirmed Vital Signs Heart Rate 82 /min 08/30/2024 Temperature 97.5 degrees Fahrenheit 10/01/2023 Respiratory Rate 20 /min 08/30/2024 Blood pressure diastolic 70 mm Hg 08/30/2024 Oximetry 97 % 05/27/2024 Height-cm 167.64 cm 08/30/2024 Weight-kg 105.23 kg 08/30/2024 Height 66 in 08/30/2024 Blood pressure systolic 106 mm Hg 08/30/2024 Weight 232 lbs 08/30/2024 BMI 37.44 kg/m2 08/30/2024 Encounters Encounter Location Date Provider Diagnosis [facility] [address] [place], [place] [id number] 12/11/2023 Leticia Golden Fibromyalgia M79.7 ; Other chronic pain G89.29 ; Left lower quadrant abdominal pain R10.32 and BMI 39.0-39.9,adult Z68.39 [facility] [address] [place], [place] [id number] 10/01/2023 Leticia Golden Long-term current us e of opiate analgesic Z79.891 ; Fibromyalgia M79.7 ; Therapeutic drug monitoring Z51.81 ; PCOS (polycystic ovarian syndrome) E28.2 ; Menorrhagia with regular cycle N92.0 ; Other chronic pain G89.29 ; Body mass index [BMI] 39.0-39.9, adult Z68.39 and Dietary counseling and surveillance Z71.3 [facility] [address] [place], [place] [id number] 08/30/2024 Leticia Golden Fibromyalgia M79.7 ; GERD without esophagitis K21.9 ; Mood disorder F39 ; Arthralgia of left knee M25.562 and BMI 37.0-37.9, adult Z68.37 [facility] [address] [place], [place] [id number] 05/27/2024 Leticia Golden Fibromyalgia M79.7 ; Weight loss, unintentional R63.4 ; Other chronic pain G89.29 ; Long-term current use of opiate analgesic Z79.891 ; Mood disorder F39 and BMI 36.0-36.9,adult Z68.[address] [place] [id number] 09/05/2024 Leticia Golden Mood disorder F39 ; GERD without esophagitis K21.9 and Other chronic pain G89.29 [facility] [address] [place], [place] [id number] 09/05/2024 Leticia Golden Other chronic pain G89.29 [facility] [address] [place], [place] [id number] 08/04/2024 Leticia Golden Other chronic pain G89.29 [facility] [address] [place], [place] [id number] 07/04/2024 Leticia Golden Other chronic pain G89.29 [facility] [address] [place], [place] [id number] 06/24/2024 Lteicia Golden Weight loss, unintentional R63.[address] [place], [place] [id number] 06/06/2024 Leticia Golden GERD without esophagitis K21.[address] [place] [id number] 06/04/2024 Leticia Golden [address] [place] [id number] 06/02/2024 Leticia Golden [address] [place], [place] [id number] 05/30/2024 Leticia oGlden 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 [facility] [address] [place], [place] [id number] 05/06/2024 Leticia Golden Other chronic pain G89.29 and Fibromyalgia M79.[address] [id number] 04/11/2024 Leticia [place] Fibromyalgia M79.7 and Other chronic pain G89.[address] [id number] 04/04/2024 Yola Dianna Other chronic pain G89.[address] [id number] 02/24/2024 Leticia Golden Other chronic pain G89.[address] [id number] 02/02/2024 Leticia Golden Long-term current us e of opiate analgesic Z79.[address] [id number] 02/01/2024 Leticia Golden Other chronic pain G89.29 ; Fibromyalgia M79.7 ; GERD without esophagitis K21.9 and Nausea and vomiting, unspecified vomiting type R11.[address] [id number] 12/29/2023 Leticia [place] Fibromyalgia M79.7 ; Other chronic pain G89.29 ; GERD without esophagitis K21.9 and Nausea and vomiting, unspecified vomiting type R11.[address] [id number] 12/14/2023 Leticia Golden [address] [id number] 12/04/2023 Leticia Golden Fibromyalgia M79.7 ; Other chronic pain G89.29 ; GERD without esophagitis K21.9 and Nausea and vomiting, unspecified vomiting type R11.[address] [id number] 11/03/2023 Leticia Golden Other chronic pain G89.29 ; Fibromyalgia M79.7 ; Nausea and vomiting, unspecified vomiting type R11.2 and GERD without esophagitis K21.[address] [id number] 10/07/2023 Leticia Golden [facility] [address] [place], [place] [id number] 10/05/2023 Leticialev Golden Other chronic pain G89.29 [facility] [address] [place] [id number] 10/02/2023 Leticia Golden Other chronic pain G89.29 [facility] [address] [facility] [address] [place], [place] [id number] 10/02/2023 Leticialev Golden [place] [id number] [place], [place] [id number] 09/07/2023 Leticia Golden Fibromyalgia M79.7 ; Other chronic pain G89.29 ; GERD without esophagitis K21.9 and Nausea and vomiting, unspecified vomiting type R11.2 Assessments Encounter Date Diagnosis (ICD Code) Assessment Notes Treatment Notes Treatment Clinical Notes Section Notes 09/07/2023 Fibromyalgia (ICD-10 - M79.7) 10/01/2023 Fibromyalgia (ICD-10 - M79.7) 10/01/2023 Long-term current use of opiate analgesic (ICD-10 - Z79.891) 10/02/2023 Other chronic pain (ICD-10 - G89.29) 10/05/2023 Other chronic pain (ICD-10 - G89.29) 11/03/2023 Other chronic pain (ICD-10 - G89.29) 12/04/2023 Fibromyalgia (ICD-10 - M79.7) 12/11/2023 Other chronic pain (ICD-10 - G89.29) 12/11/2023 Fibromyalgia (ICD-10 - M79.7) 02/01/2024 Other chronic pain (ICD-10 - G89.29) 02/02/2024 Long-term current use of opiate analgesic (ICD-10 - Z79.891) 02/24/2024 Other chronic pain (ICD-10 - G89.29) 04/04/2024 Other chronic pain (ICD-10 - G89.29) 04/11/2024 Fibromyalgia (ICD-10 - M79.7) 05/06/2024 Other chronic pain (ICD-10 - G89.29) 05/30/2024 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) 06/06/2024 GERD without esophagitis (ICD-10 - K21.9) 06/24/2024 Weight loss, unintentional (ICD-10 - R63.4) 07/04/2024 Other chronic pain (ICD-10 - G89.29) 08/04/2024 Other chronic pain (ICD-10 - G89.29) 08/30/2024 Fibromyalgia (ICD-10 - M79.7) 12/29/2023 Fibromyalgia (ICD-10 - M79.7) 05/27/2024 Fibromyalgia (ICD-10 - M79.7) 05/27/2024 Weight loss, unintentional (ICD-10 - R63.4) 08/30/2024 GERD without esophagitis (ICD-10 - K21.9) 09/05/2024 Mood disorder (ICD-10 - F39) 09/05/2024 Other chronic pain (ICD-10 - G89.29) 09/05/2024 GERD without esophagitis (ICD-10 - K21.9) 08/30/2024 Mood disorder (ICD-10 - F39) 05/06/2024 Fibromyalgia (ICD-10 - M79.7) 05/27/2024 Other chronic pain (ICD-10 - G89.29) 04/11/2024 Other chronic pain (ICD-10 - G89.29) 02/01/2024 Fibromyalgia (ICD-10 - M79.7) 12/11/2023 Left lower quadrant abdominal pain (ICD-10 - R10.32) 12/29/2023 Other chronic pain (ICD-10 - G89.29) 12/04/2023 Other chronic pain (ICD-10 - G89.29) 11/03/2023 Fibromyalgia (ICD-10 - M79.7) 10/01/2023 Therapeutic drug monitoring (ICD-10 - Z51.81) 09/07/2023 Other chronic pain (ICD-10 - G89.29) 09/07/2023 GERD without esophagitis (ICD-10 - K21.9) 10/01/2023 PCOS (polycystic ovarian syndrome) (ICD-10 - E28.2) 11/03/2023 Nausea and vomiting, unspecified vomiting type (ICD-10 - R11.2) 12/04/2023 GERD without esophagitis (ICD-10 - K21.9) 12/11/2023 BMI 39.0-39.9,adult (ICD-10 - Z68.39) 02/01/2024 GERD without esophagitis (ICD-10 - K21.9) 08/30/2024 Arthralgia of left knee (ICD-10 - M25.562) 09/05/2024 Other chronic pain (ICD-10 - G89.29) 05/27/2024 Long-term current use of opiate analgesic (ICD-10 - Z79.891) 12/29/2023 GERD without esophagitis (ICD-10 - K21.9) 12/29/2023 Nausea and vomiting, unspecified vomiting type (ICD-10 - R11.2) 05/27/2024 Mood disorder (ICD-10 - F39) 02/01/2024 Nausea and vomiting, unspecified vomiting type (ICD-10 - R11.2) 12/04/2023 Nausea and vomiting, unspecified vomiting type (ICD-10 - R11.2) 11/03/2023 GERD without esophagitis (ICD-10 - K21.9) 08/30/2024 BMI 37.0-37.9, adult (ICD-10 - Z68.37) 10/01/2023 Menorrhagia with regular cycle (ICD-10 - N92.0) 09/07/2023 Nausea and vomiting, unspecified vomiting type (ICD-10 - R11.2) 10/01/2023 Other chronic pain (ICD-10 - G89.29) 05/27/2024 BMI 36.0-36.9,adult (ICD-10 - Z68.36) 10/01/2023 Body mass index [BMI] 39.0-39.9, adult (ICD-10 - Z68.39) 10/01/2023 Dietary counseling and surveillance (ICD-10 - Z71.3) Plan Of Treatment Pending Test Test Name Order Date CELIAC DISEASE COMPREHENSIVE PANEL 05/30 MAGNESIUM 05/30/2024 PHOSPHATE ( PHOSPHORUS) 05/30/2024 ZINC 05/30/2024 COPPER 05/30/2024 Next Appt Details Provider Name:Leticia coppola, 11/25/2024 11:00:00 AM, [address], [place], [place], [id number], Insurance Providers Payer Name Payer Address Payer Phone Subscriber Number Group Number Insured Name Patient Relationship to Insured Coverage Start Date Coverage End Date [facility] Plans [address] [address] [place] [address] [id number] YO WHITAKER Self - patient is the insured 2 [place] [employer] [address] [place] [id number] YO WHITAKER Self - patient is the insured 3 Sliding Fee Scale B [place] slide B YO WHITAKER Self - patient is the insured 2 Medications Administered Medication Instructions Date of Administration Dosage Notes Ketorolac Tromethamine per 15 mg [address]-99 03/13/2022 60 mg Pt janee [facility]) History Medical History History ICD Code depression anxiety migraines vitamin d def acid reflux alopecia fibromyalgia Surgical History Surgery Date(Month/Year) tendonitis surgery Hospitalization History Reason Date(Month/Year)
--- NOTE | 2024-09-06 10:03 | EXP.PAIN.SOA ---
[facility] Disclaimer: The information contained in this section may have been updated after the patient was seen, as this information can be updated by other users. Medical History Migraine Diabetes CRPS (complex regional pain syndrome type I) Social History Smoking Status: Unknown if ever smoked alcohol intake: never current occupational status: other Travel in the last 8 weeks?: None PM Subjective & Objective Subjective Subjective:: Patient is a pleasant 29-year-old female who presents today for 1 month follow-up. Today she rates her overall low back pain around a 3 but does state that she is having more extreme pain related to having a tooth procedure. She states she had a biopsy and just is having a lot of pain related to that. She does however still feel like the last lumbar epidural she got in June is still working and has made all the difference in her low back pain. patient has been continuing physical therapy however it has not made any additional improvement. She states that the physical therapist did state that they did not see that she was getting added benefit and that they were going to go back and discussed with insurance for the advanced imaging. This was previously denied for lack of having updated physical therapy. Patient is still wanting to proceed forward with the advanced imaging in order to see what is going on to cause her continued low back and leg symptoms. Patient is currently managed with methocarbamol 1000 mg 3 times a day from our office. She denies any side effects. Her Shamar has been reviewed and is appropriate. Review of Systems: General: No recent weight changes, no fever, no sleep disturbances Respiratory: No cough, no shortness of air, no recurring pulmonary infections Cardiovascular/peripheral vascular: No chest pain, no palpitations, no edema, no shortness of breath Gastrointestinal: No new onset incontinence, normal bowel movements reported Genitourinary: No new onset incontinence Musculoskeletal: Low back pain Psychiatric: [Normal mood/affect] Neurological: [Denies weakness in extremities], [denies balance issues] Pain at rest (0-10 scale): 3 Objective Objective:: Physical Exam: General: Alert and oriented x3, no acute distress, pleasant and cooperative Lungs: Respirations even and unlabored, symmetrical chest expansion Eyes: PERRL Musculoskeletal: Flexion and extension of lumbar [spine] somewhat guarded secondary to pain, [antalgic gait noted] Neurological: Speech clear, no gross sensory deficit Has patient had previous pain injection?: No Conservative treatment options previously tried: Home exercise plan Length of treatment: Longer than 12 weeks and Physical Therapy Length of treatment: Ongoing Meds Home Medications and Allergies Home Medications ?Medication ?Instructions ?Recorded ?Confirmed ?Type albuterol sulfate 2.5 mg/3 mL 2.5 mg inhalation DAILY PRN SOB 04/06/23 07/27/24 History (0.083 %) solution for nebulization albuterol sulfate 90 mcg/actuation 2 puff inhalation QID 04/06/23 07/27/24 History aerosol inhaler (Ventolin HFA) budesonide-formoterol HFA 160 2 puff inhalation BID 04/06/23 07/27/24 History mcg-4.5 mcg/actuation aerosol inhaler (Symbicort) bupropion HCl 100 mg tablet,12 hr 100 mg PO DAILY 04/06/23 07/27/24 History sustained-release cyclobenzaprine 10 mg tablet 10 mg PO TID 04/06/23 07/27/24 History desvenlafaxine succinate 50 mg 50 mg PO DAILY 04/06/23 07/27/24 History tablet,extended release 24 hr hydrocodone 5 mg-acetaminophen 325 1 tab PO Q4H PRN Pain 04/06/23 07/27/24 History mg tablet hydroxyzine HCl 50 mg tablet 50 mg PO HS 04/06/23 07/27/24 History ibuprofen 400 mg tablet 400 mg PO TIDP PRN Pain 04/06/23 07/27/24 History levocetirizine 5 mg tablet 5 mg PO DAILY 04/06/23 07/27/24 History metformin 500 mg tablet 500 mg PO QID 04/06/23 07/27/24 History methenamine mandelate 1 gram tablet 1 g PO BID 04/06/23 07/27/24 History omeprazole 40 mg capsule,delayed 40 mg PO BID 04/06/23 07/27/24 History release ondansetron 4 mg disintegrating 4 mg PO Q6H PRN Nausea 04/06/23 07/27/24 History tablet pregabalin 100 mg capsule 100 mg PO DAILY 04/06/23 07/27/24 History pregabalin 150 mg capsule 150 mg PO DAILY 04/06/23 07/27/24 History pregabalin 200 mg capsule 200 mg PO HS 04/06/23 07/27/24 History propranolol 10 mg tablet 10 mg PO BID 04/06/23 07/27/24 History tiotropium bromide 1.25 2 puff inhalation BID 04/06/23 07/27/24 History mcg/actuation mist for inhalation topiramate 100 mg tablet 100 mg PO DAILY 04/06/23 07/27/24 History baclofen 10 mg tablet See Rx Instructions .Route 02/11/24 07/27/24 Rx .COMPLEX #90 tabs methocarbamol 500 mg tablet 500 mg PO TID #90 tabs 05/05/24 07/27/24 Rx cariprazine 1.5 mg capsule 1.5 mg PO DAILY 06/02/24 07/27/24 History (Vraylar) methocarbamol 750 mg tablet 750 mg PO TID #90 tabs 06/02/24 07/27/24 Rx New Prescriptions to Start Prescriptions: Allergies Allergy/AdvReac Type Severity Reaction Status Date / Time amoxicillin AdvReac Vomiting Verified 06/09/23 13:01 ampicillin AdvReac Verified 06/09/23 13:01 clarithromycin AdvReac Vomiting Verified 06/09/23 13:01 clavulanic acid AdvReac Vomiting Verified 06/09/23 13:01 erythromycin base AdvReac Verified 06/09/23 13:01 potassium AdvReac Vomiting Verified 06/09/23 13:01 sulfamethoxazole AdvReac Verified 06/09/23 13:01 Assessment and Plan *Assessment and plan (1) Lumbar radiculopathy: Status: Acute Category: Medical Code(s): M54.16 - Radiculopathy, lumbar region (2) Low back pain: Status: Acute Qualifiers: Chronicity: chronic Back pain laterality: bilateral Sciatica presence: without sciatica Qualified Code(s): M54.50 - Low back pain, unspecified; G89.29 - Other chronic pain Category: Medical Code(s): M54.50 - Low back pain, unspecified Plan Patient does still have chronic low back pain that does radiate into her legs. Patient has been actively seeing physical therapy however has not noticed significant improvements in her symptoms. Patient did however get better relief with the injections with her last lumbar epidural in June and does not require any additional injection therapy at this time. I did review over with her due to the fact that she is not noticing significant improvement that I would still like to see about ordering the advanced imaging of MRI without contrast of her lumbar spine. Patient agrees with this plan of care. Patient has tried and failed conservative therapy including oral medication, heat and ice, topicals, physical therapy and at home stretching exercise for longer than 12 weeks that was physician guided. Patient will return to clinic in 1 month following this advanced imaging for the results. Patient has been instructed to contact the clinic with any concerns before the next appointment. Dr. Lindsey has reviewed this note and agrees with this plan of care. This note was dictated using voice recognition software and make contain errors or omissions. All injections are used with Lidocaine, Bupivacaine and dexamethasone. Occasionally urine drug screen is needed to verify patient's compliance with our office pain contract. This is ordered based off specific treatments related to chronic pain with the potential to abuse certain medications.
[2024-09-06 10:33] VITALS: BP 106/64; PULSE 79; RESP 14; O2SAT 97; BMI 37.5
== END 2024-09-06 23:59 | disposition home or self-care (01) ==
LOC: SC.PAIN 09:41
PROVIDERS: Visit Provider Nurse Practitioner Family
DX: M54.16 Radiculopathy, lumbar region (principal); G89.29 Other chronic pain; Z79.899 Other long term (current) drug therapy
CPT/HCPCS: 99212; G0463

== ENCOUNTER 2024-10-19 14:16 | Outpatient (POV) | payer MEDICAID, SELFPAY ==
--- OUTSIDE RECORDS SUMMARY | 2004-01-15 01:00 | XMS_ITS | Encounter Summary ---
Author Organization [facility] Address [address] [place] [id number] Care Team Providers Care Abrasive Mixer Name Role Phone Unavailable Primary Care Provider Unavailabl e Encounter Details Date Type Department Care Team (Late st Contact Info) Description 01/15/2004 Hospital Encounter [facility] Division of Pediatric General and Thoracic Surgery [address] [place] [phone] Social History Tobacco Use Types Packs/Day Years Used Date Smoking Tobacco: Never Comments Unknown Sex and Gender Information Value Date Recorded Sex Assigned at Not on file Legal Sex Female 5:23 AM EST Gender Identity Not on file Sexual Orientation Not on file documented as of this encounter Plan of Treatment Not on file documented as of this encounter Visit Diagnoses Not on filedocumented in this encounter
--- OUTSIDE RECORDS SUMMARY | 2004-03-04 01:00 | XMS_ITS | Encounter Summary ---
Author Organization [facility] Address [address] [place] [id number] Care Team Providers Care Brand Ambassador Name Role Phone Unavailable Primary Care Provider Unavailabl e Encounter Details Date Type Department Care Team (Late st Contact Info) Description 03/04/2004 Hospital Encounter [facility] Division of Pediatric General and Thoracic Surgery [address] [place] [phone] Social History Tobacco Use Types Packs/Day Years Used Date Smoking Tobacco: Never Comments Unknown Sex and Gender Information Value Date Recorded Sex Assigned at Not on file Legal Sex Female 5:23 AM EST Gender Identity Not on file Sexual Orientation Not on file documented as of this encounter Miscellaneous Notes * Consent Other - Edt, Audit [place] - 04/13/2008 12:47 PM EST documented in this encounter Plan of Treatment Not on file documented as of this encounter Visit Diagnoses Not on filedocumented in this encounter
--- OUTSIDE RECORDS SUMMARY | 2024-08-26 09:00 | XMS_ITS ---
Author Organization [facility] Address [address] [place] [phone] Care Team Providers Care Risk Assessor Name Role Phone Leticia Golden Primary Care Provider REASON FOR VISIT 3 month f/u Social History Sex Assigned At : Social History Observation Description Sex Assigned At Female Encounters Encounter Location Date Provider Diagnosis [facility] [address] [id number] 08/26/2024 Leticia Golden Plan Of Treatment Next Appt Details Provider Name:Leticia Stafford in, 11/25/2024 11:00:00 AM, [address], [place], [place], [phone], Progress Notes * YO GATICADOB:1995 (29 yo F)Acc No.[id number]:08/26/2024 Progress Notes Patient: YO SCHOFIELD Provider: Kathi Golden MD :1995 A ge:29 Y S ex:Female Date:08/26/2024 Address:[address], [place], [place] Structured Data:Appointment Preference : No Preference; Agricultural Work Status : Non-Agricultural; Seasonal : No; Is the patient over the age of 18? : Yes Subjective: * Chief Complaints: * 1 . 3 month f/u. * Medical History: Objective: * Vitals: Assessment: Plan: * Treatment: Care Plan: * Problems: * Billing Information: * Visit Code: * Procedure Codes: * Electronic signature of Maik Golden MD on 10/19/2024 at 02:19 PM EDT Sign off status: Pending Visit Status: C ANCPROV (Cancelled by Provider) * Provider: Kathi Golden MD Date: 08/26/2024 Generated for Alex sadler/Elle/Mariansmlee on: 10/19/2024 02:19 PM EDT
--- OUTSIDE RECORDS SUMMARY | 2024-08-30 07:00 | XMS_ITS ---
Author Organization [facility] Address [address] [place], [place] [id number] Care Team Providers Care Payroll Administrative Assistant Name Role Phone Leticia Golden Primary Care Provider Allergies Allergen (clinical drug ingredient) Drug/Non Drug Allergy documented on EMR Reaction Allergy Type Onset Date Status allergy injections (uncoded) Unknown Allergy Active REASON FOR VISIT r/s 08/26 Medications Medication SIG (Take, Route, Frequency, Duration) Notes Start Date End Date Status Vraylar 1.5 MG 1 capsule Orally Once a day; Duration: 30 days 05/27/2024 Active Omeprazole 20 MG TAKE ONE (1) CAPSULE BY MOUTH ONCE DAILY 30 MINUTES BEFORE MORNING MEAL; Duration: 90 Active HYDROcodone-Acetaminophen 10-325 MG 1 Oral every 8 hours; Duration: 30 days . 08/08/2024 Active Pregabalin 150 MG 1 capsule Orally Once a day; Duration: 30 days 09/01/2024 Active Pregabalin 100 MG 1 capsule Orally Once a day; Duration: 30 days 09/01/2024 Active Hydrocortisone 2.5 % 1 application Externally Once a day as needed Active Naloxone HCl 4 MG/0.1ML as directed Nasally 2023 Active Pregabalin 200 MG 1 capsule 1 to 3 hours before bedtime Orally Once a day; Duration: 30 days 05/27/2024 Active methylPREDNISolone 4 MG as directed Orally 025 Active Vitamin B-12 1000 MCG TAKE 1 TABLET BY MOUTH ONCE A DAY.; Duration: 30 Active Naloxone HCl 4 MG/0.1ML as directed Nasally 2023 Active Dicyclomine HCl 10 MG TAKE 2 CAPSULES BY MOUTH THREE TIMES DAILY; Duration: 90 Active Vitamin D (Ergocalciferol) 1.25 MG (53286 UT) TAKE ONE (1) CAPSULE EVERY WEEK; Duration: 28 Active Ondansetron HCl 4 MG 1 tablet Orally Once a day; Duration: 30 days Active Diclofenac Sodium 1 % 2 gms to affected area Externally 4 times daily 07/02/2023 Active Topiramate 100 MG 1 tablet Orally Once a day; Duration: 30 day(s) Active Spiriva Respimat 1.25 MCG/ACT 2 puffs Inhalation Once a day; Duration: 90 days as needed Active Propranolol HCl 10 MG 1 tablet Orally three times a day; Duration: 90 days Active Sucralfate 1 GM 1 tablet on an empty stomach Orally three times daily; Duration: 15 days 05/27/2022 Active Promethazine HCl 25 MG 1 tablet as neede d Orally every 6 hrs; Duration: 90 days 05/27/2022 Active hydrOXYzine HCl 50 MG 1 tablet as needed Orally every 6 hrs; Duration: 90 days as needed Active Wellbutrin 100 MG 1 tablet Orally once a day; Duration: 90 days Active Silver sulfADIAZINE 1 % APPLY TO AFFECTE D AREA ONCE DAILY NEEDED; Duration: 30 days Active Albuterol Sulfate (2.5 MG/3ML) 0.083% 3 ml as needed Inhalation every 6 hrs; Duration: 90 days as needed Active Symbicort 80-4.5 MCG/ACT 2 puffs Inhalat ion Once a day; Duration: 90 days as needed Active Linzess 145 MCG 1 capsule at least 30 minutes before the first meal of the day on an empty stomach Orally Once a day Janette Dr Active Pristiq 25 MG 1 tablet Orally Once a day Active Social History Sex Assigned At : Social History Observation Description Sex Assigned At Female Section Notes: non-smoker Problems Problem Type SNOMED Code ICD Code Onset Dates Problem Status W/U Status Risk Notes Problem Obese class II (468326859799 105) BMI 37.0-37.9, adult (Z68.37) 09/01/2024 Active confirmed Vital Signs Height 66 in 08/30/2024 Weight 232 lbs 08/30/2024 BMI 37.44 kg/m2 08/30/2024 Blood pressure systolic 106 mm Hg 08/31/19 25 Blood pressure diastolic 70 mm Hg 025 Heart Rate 82 /min 08/30/2024 Respiratory Rate 20 /min 08/30/2024 Height-cm 167.64 cm 08/30/2024 Weight-kg 105.23 kg 08/30/2024 Encounters Encounter Location Date Provider Diagnosis [facility] [address] [place], [place] [id number] 08/30/2024 Leticia [place] Fibromyalgia M79.7 ; GERD without esophagitis K21.9 ; Mood disorder F39 ; Arthralgia of left knee M25.562 and BMI 37.0-37.9, adult Z68.37 Assessments Encounter Date Diagnosis (ICD Code) Assessment Notes Treatment Notes Treatment Clinical Notes Section Notes 08/30/2024 Fibromyalgia (ICD-10 - M79.7) 08/30/2024 GERD without esophagitis (ICD-10 - K21.9) 08/30/2024 Mood disorder (ICD-10 - F39) 08/30/2024 Arthralgia of left knee (ICD-10 - M25.562) 08/30/2024 BMI 37.0-37.9, adult (ICD-10 - Z68.37) Plan Of Treatment Medication Medication Name Sig Start Date Stop Date Notes Vraylar 1.5 MG 1 capsule Orally Onc e a day; Duration: 30 days 05/27/2024 Omeprazole 20 MG TAKE ONE (1) CAPSULE BY MOUTH ONCE DAILY 30 MINUTES BEFORE MORNING MEAL; Duration: 90 Pregabalin 150 MG 1 capsule Orally Onc e a day; Duration: 30 days 09/01/2024 Pregabalin 100 MG 1 capsule Orally Onc e a day; Duration: 30 days 09/01/2024 methylPREDNISolone 4 MG as directed Orally 09/01/2024 Next Appt Details Follow Up: 3 Months, Reason: Provider Name:Leticia Stafford in, 11/25/2024 11:00:00 AM, [address], [place], [place], [phone], Progress Notes * CALLY ART:1995 (29 yo F)Acc No.[id number]:08/30/2024 Progress Notes Patient: YO SCHOFIELD Provider: Kathi Golden MD :1995 A ge:29 Y S ex:Female Date:08/30/2024 Address:[address], [place], [id number] Structured Data:Appointment Preference : No Preference; Agricultural Work Status : Non-Agricultural; Seasonal : No; Is the patient over the age of 18? : Yes Subjective: * Chief Complaints: * R /s 08/26 * HPI: G eneral: Nurses Note P atient here for 3 month f/u, med refills, L knee pain, feeling like its sticking. See orthopedics doesn't see them for 6 more months. Gets gel injections 07/2024. - [facility]. Provider note . .... D epression Screening: PHQ-2 (2015 Edition) L ittle interest or pleasure in doing things??Not at all F eeling down, depressed, or hopeless? N ot at all T otal Score 0 F amily Medicine: Yo Art is a 29-year-old female who reports ongoing weight loss training and recent medical evaluations. She mentions being diagnosed with celiac disease by a GI doctor, who has recommended an endoscopy, colonoscopy, and barium swallow to rule out malignancy. These procedures are scheduled to begin next Thursday. Yo also underwent a spirometry test, which indicated restrictive lung disease, characterized by her lungs not expanding properly. Additionally, she is experiencing significant knee pain and is considering a cortisone shot for relief, although she notes that she recently had gel injections and plans to consult orthopedics for further management. 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 She seeks clarification on pre-procedure dietary restrictions for the upcoming barium swallow, expressing uncertainty about whether fasting is required the day before or just the night before. * ROS: A ll Other Systems: Review of Systems (ROS) A thorough ROS was obtained and was unremarkable except as noted in the HPI. * Medical History: * Surgical History: t endonitis surgery * Hospitalization/Major Diagno stic Procedure: D enies Past Hospitalization * Family History: F ather: alive. * Social History: n on-smoker. * Medications: T akingLinzess 145 MCG Capsule 1 capsule at least 30 minutes before the first meal of the day on an empty stomach Orally Once a day , Notes to Pharmacist: Janette DrPristiq 25 MG Tablet Extended Release 24 Hour 1 tablet Orally Once a day Silver sulfADIAZINE 1 % Cream APPLY TO AFFECTED AREA ONCE DAILY NEEDED Wellbutrin 100 MG Tablet 1 tablet Orally once a day Symbicort 80-4.5 MCG/ACT Aerosol 2 puffs Inhalation Once a day , Notes to Pharmacist: as neededAlbuterol Sulfate (2.5 MG/3ML) 0.083% Nebulization Solution 3 ml as needed Inhalation every 6 hrs , Notes to Pharmacist: as neededhydrOXYzine HCl 50 MG Tablet 1 tablet as needed Orally every 6 hrs , Notes to Pharmacist: as neededTopiramate 100 MG Tablet 1 tablet Orally Once a day Propranolol HCl 10 MG Tablet 1 tablet Orally three times a day Spiriva Respimat 1.25 MCG/ACT Aerosol Solution 2 puffs Inhalation Once a day , Notes to Pharmacist: as neededPromethazine HCl 25 MG Tablet 1 tablet as needed Orally every 6 hrs Sucralfate 1 GM Tablet 1 tablet on an empty stomach Orally three times daily Diclofenac Sodium 1 % Gel 2 gms to affected area Externally 4 times daily Dicyclomine HCl 10 MG Capsule TAKE 2 CAPSULES BY MOUTH THREE TIMES DAILY Naloxone HCl 4 MG/0.1ML Liquid as directed Nasally Ondansetron HCl 4 MG Tablet 1 tablet Orally Once a day Vitamin D (Ergocalciferol) 1.25 MG (45772 UT) Capsule TAKE ONE (1) CAPSULE EVERY WEEK Naloxone HCl 4 MG/0.1ML Liquid as directed Nasally Hydrocortisone 2.5 % Lotion 1 application Externally Once a day , Notes to Pharmacist: as neededPregabalin 200 MG Capsule 1 capsule 1 to 3 hours before bedtime Orally Once a day Pregabalin 150 MG Capsule 1 capsule Orally Once a day Pregabalin 100 MG Capsule 1 capsule Orally Once a day Vraylar 1.5 MG Capsule 1 capsule Orally Once a day Omeprazole 20 MG Capsule Delayed Release TAKE ONE (1) CAPSULE BY MOUTH ONCE DAILY 30 MINUTES BEFORE MORNING MEAL Vitamin B-12 1000 MCG Tablet TAKE 1 TABLET BY MOUTH ONCE A DAY. HYDROcodone-Acetaminophen 10-325 MG Tablet 1 Oral every 8 hours , Notes to Pharmacist: .Medication List reviewed and reconciled with the patientTaking Linzess 145 MCG Capsule 1 capsule at least 30 minutes before the first meal of the day on an empty stomach Orally Once a day , Notes to Pharmacist: [place] DrTaking Pristiq 25 MG Tablet Extended Release 24 Hour 1 tablet Orally Once a day Taking Silver sulfADIAZINE 1 % Cream APPLY TO AFFECTED AREA ONCE DAILY NEEDED Taking Wellbutrin 100 MG Tablet 1 tablet Orally once a day Taking Symbicort 80-4.5 MCG/ACT Aerosol 2 puffs Inhalation Once a day , Notes to Pharmacist: as neededTaking Albuterol Sulfate (2.5 MG/3ML) 0.083% Nebulization Solution 3 ml as needed Inhalation every 6 hrs , Notes to Pharmacist: as neededTaking hydrOXYzine HCl 50 MG Tablet 1 tablet as needed Orally every 6 hrs , Notes to Pharmacist: as neededTaking Topiramate 100 MG Tablet 1 tablet Orally Once a day Taking Propranolol HCl 10 MG Tablet 1 tablet Orally three times a day Taking Spiriva Respimat 1.25 MCG/ACT Aerosol Solution 2 puffs Inhalation Once a day , Notes to Pharmacist: as neededTaking Promethazine HCl 25 MG Tablet 1 tablet as needed Orally every 6 hrs Taking Sucralfate 1 GM Tablet 1 tablet on an empty stomach Orally three times daily Taking Diclofenac Sodium 1 % Gel 2 gms to affected area Externally 4 times daily Taking Dicyclomine HCl 10 MG Capsule TAKE 2 CAPSULES BY MOUTH THREE TIMES DAILY Taking Naloxone HCl 4 MG/0.1ML Liquid as directed Nasally Taking Ondansetron HCl 4 MG Tablet 1 tablet Orally Once a day Taking Vitamin D (Ergocalciferol) 1.25 MG (97283 UT) Capsule TAKE ONE (1) CAPSULE EVERY WEEK Taking Naloxone HCl 4 MG/0.1ML Liquid as directed Nasally Taking Hydrocortisone 2.5 % Lotion 1 application Externally Once a day , Notes to Pharmacist: as neededTaking Pregabalin 200 MG Capsule 1 capsule 1 to 3 hours before bedtime Orally Once a day Taking Pregabalin 150 MG Capsule 1 capsule Orally Once a day Taking Pregabalin 100 MG Capsule 1 capsule Orally Once a day Taking Vraylar 1.5 MG Capsule 1 capsule Orally Once a day Taking Omeprazole 20 MG Capsule Delayed Release TAKE ONE (1) CAPSULE BY MOUTH ONCE DAILY 30 MINUTES BEFORE MORNING MEAL Taking Vitamin B-12 1000 MCG Tablet TAKE 1 TABLET BY MOUTH ONCE A DAY. Taking HYDROcodone-Acetaminophen 10-325 MG Tablet 1 Oral every 8 hours , Notes to Pharmacist: .Medication List reviewed and reconciled with the patient * Allergies: a llergy injectionsno[Allergies Verified] Objective: * Vitals: H t: 66 in, Wt:232lbs, BMI:37.44Index, BP:106/70mm Hg, HR:82/min, RR:20/min, Ht- cm: 167.64 cm, Wt-k.23 kg. * Examination: G eneral Examination: GENERAL: A lert, well developed, well hydrated, in no acute distress. SKIN: w arm and dry, no rashes. HEAD: n ormocephalic and atraumatic. EYES: E DARCY, PERRL, sclera non-icteric. HEART: N ormal S1, S2 without murmurs, regular rate and rhythm. LUNGS: c lear to auscultation bilaterally, no wheezes, rales, rhonchi. MUSCULOSKELETAL: n o swelling or deformity, full range of motion, some crepitance ROM of knees. NEUROLOGIC: a lert and oriented, No focal deficit. EXTREMITIES: n o clubbing, cyanosis, or edema, full range of motion. PSYCH: a lert, oriented, Mood normal, affect appropriate.? Assessment: * Assessment: 1. F ibromyalgia - M79.7 (Primary) 2 . G ERD without esophagitis - K21.9? 3. M ood disorder - F39 4 . A rthralgia of left knee - M25.562 5 . B VA 37.0-37.9, adult - Z68.37 Plan: * Treatment: 2. G ERD without esophagitis Refill Omeprazole Capsule Delayed Release, 20 MG, TAKE ONE (1) CAPSULE BY MOUTH ONCE DAILY 30 MINUTES BEFORE MORNING MEAL, 90, 90 Capsule, Refills 1. 3. M ood disorder Refill Vraylar Capsule, 1.5 MG, 1 capsule, Orally, Once a day, 30 days, 30, Refills 2. 4. A rthralgia of left knee Start methylPREDNISolone Tablet Therapy Pack, 4 MG, as directed, Orally, 1. Prescription Drug Monitoring Program (PDMP) PDMP report request complete d on 08/08/2024 11:03:27 AM - Leticia Golden * Procedure Codes: * Preventive Medicine: *[facility] Care Management: C latisha Medical Management Recommendations t o take all medications as directed, to keep all scheduled medical appointments, to keep all scheduled referrals, to make lifetyle modifications as directed E xercise Recommendations t o do low level aerobic exercise on a regular basis S leep Recommendations: t o sleep 8-9 hours per night * Follow Up: 3 Months Care Plan: * Problems: * Billing Information: * Visit Code: 72323 ESTABLISHED PATIENT - INTERMEDIATE SERVICE 15 MIN. * Procedure Codes: * Sign off status: Completed Visit Status: C HK (Check Out) true * Provider: Kathi Golden MD Date: 0 08/30/2024 Generated for Alex sadler/Elle/Ash on: 0 10/19/2024 02:19 PM EDT History and Physical Notes * HPI (History of Present Illness) Category Sub-Category Detail Notes Category Not es General Nurses Note Patient here for 3 month f/u, med refills, L knee pain, feeling like its sticking. See orthopedics doesn't see them for 6 more months. Gets gel injections 07/2024. - [facility] Provider note .... Family Medicine Yo cook is a 29-year-old female who reports ongoing weight loss training and recent medical evaluations. She mentions being diagnosed with celiac disease by a GI doctor, who has recommended an endoscopy, colonoscopy, and barium swallow to rule out malignancy. These procedures are scheduled to begin next Thursday. Yo also underwent a spirometry test, which indicated restrictive lung disease, characterized by her lungs not expanding properly. Additionally, she is experiencing significant knee pain and is considering a cortisone shot for relief, although she notes that she recently had gel injections and plans to consult orthopedics for further management. 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 She seeks clarification on pre-procedure dietary restrictions for the upcoming barium swallow, expressing uncertainty about whether fasting is required the day before or just the night before. Depression Screening PHQ-2 (2015 Edition) Little interest or pleasure in doing things?: Not at all Feeling down, depressed, or hopeless?: N ot at all Total Score: 0 Examination Category Sub-Category Detail Notes Category Not es General Examination GENERAL: Alert, well developed, well hydrated, in no acute distress HEAD: normocephalic and at raumatic EYES: EOMI, PERRL, sclera non-icteric HEART: Normal S1, S2 withou t murmurs, regular rate and rhythm LUNGS: clear to auscultatio n bilaterally, no wheezes, rales, rhonchi NEUROLOGIC: alert and oriented, No focal deficit SKIN: warm and dry, no josefina hes EXTREMITIES: no clubbing, cyanosi s, or edema, full range of motion MUSCULOSKELETAL: no swelling or defor mity, full range of motion, some crepitance ROM of knees PSYCH: alert, oriented, Moo d normal, affect appropriate
--- OUTSIDE RECORDS SUMMARY | 2024-10-19 14:19 | XMS_ITS | Clinical Summary ---
Author Organization [facility] [place] [facility] Address [address] [place] [address] Care Team Providers Care Field Artillery Targeting Technician Name Role Phone Jenae Salter PA-C Primary Care Provider [phone] Source Comments [facility] is fully rolled out with thefollowing exceptions:[facility] Allergies Active Allergy Reactions Criticality Noted Date Comments Azithromycin Gastritis Medium 04/12/2009 Bentyl Anaphylaxis 02/14/2014 Egg White Gastritis,Headache Medium 04/12/2009 Erythromycin Base Gastritis Medium 04/12/2009 Food Diarrhea,Gastritis,H eada shilpa Medium 04/12/2009 MIlk/dairy, Chicken Keflex Gastritis Medium 04/12/2009 Other Medium 04/12/2009 Grass, trees, molds, flies, butterflies, cockroaches, - Stuffiness, congestion, and watery/itchy eyes. Penicillins Positive Skin Test 11/12/2010 Skin tested positive for allergy to PCN Pinus Strobus 06/14/2013 itching Wheat Gastritis,Headache Medium 04/12/2009 Medications ALBUTEROL IN 1 Vial by Nebulization route every 4 hours as needed. Active Ibuprofen 200 MG Take 1 Tab by mouth every 6 hours as needed. Takes about 4 times a day Active ketoconazole (NIZORAL) 2 % shampoo by Topical route as directed. 2 times per week Active Polyethylene Glycol 3350 (MIRALAX PO) Take by mouth as directed. For constipation as needed Active olopatadine (PATADAY) 0.2 % ophthalmic solution Put 1 Drop in both eyes 1 time daily as needed. For allergy eyes Active omeprazole (PRILOSEC) 20 MG delayed release capsule Take 1 Cap by mouth 2 times daily. Generally takes only once a day Active FLUoxetine (PROZAC) 10 MG capsule Take 2 Caps by mouth 1 time daily. Active silver sulfadiazine (SILVADENE) 1 % cream by Topical route as directed. For skin irritation Active beclomethasone (QVAR) 80 MCG/ACT inhaler Take 2 Puffs by inhalation 2 times daily. Active FLUCONAZOLE PO Take 1 Tab by mouth every 30 days. Active montelukast (SINGULAIR) 10 MG tablet Take 1 Tab by mouth 1 time daily. Active albuterol (PROVENTIL) 90 MCG/ACT inhaler Take 2 Puffs by inhalation 2 times daily. Active hyoscyamine (LEVSIN SL) 0.125 MG sublingual tabletIndications: Fatty liver disease, non-alcoholic,Obes ity,Hypovitaminosi s D,Generalized pain,Bipolar disorder,IBS (irritable bowel syndrome) 1 Tab by Sublingual route 3 times daily. 1 month 6 months 05/30/19 11 Active medroxyPROGESTERon e (DEPO-PROVERA) 150 MG/ML injection 150 mg by Intramuscular route as directed. Gets one every 3 months Active mirtazapine (REMERON) 30 MG tablet Take 30 mg by mouth every evening. Active cetirizine (ZyrTEC) 10 MG capsule Active hydrOXYzine hcl (ATARAX) 25 MG tablet Active metoprolol (TOPROL XL) 50 MG 24 hr sustained release tablet Take 50 mg by mouth 1 time a day. 04/15/19 14 Active ciclesonide (ZETONNA) 37 MCG/ACT aerosol solutionIndication s:Allergic rhinitis One spray per nares 2x/day. 1 Inhaler 3 06/15/19 14 Active fluticasone propionate (FLONASE) 50 MCG/ACT nasal sprayIndications:A llergic rhinitis Give 1 [place] into each side of nose 1 time a day. 1 Bottle 4 06/24/19 14 Active cholecalciferol (VITAMIN D-3) 5000 UNITS capsuleIndications :Hypovitaminosis D Take 1 Cap (5,000 Units total) by mouth 1 time a day. 30 Cap 6 09/09/19 14 Active pregabalin (LYRICA) 100 MG capsuleIndications :Primary fibromyalgia Take by mouth. Take 100 mg qAM, 150 mg mid-afternoon, and 200 mg qHS (separate prescriptions provided for 150 mg and 200 mg capsules).. 30 Cap 5 01/06/20 15 Active pregabalin (LYRICA) 150 MG capsuleIndications :Primary fibromyalgia Take by mouth. Take 100 mg qAM, 150 mg mid-afternoon, and 200 mg qHS (separate prescriptions provided for 100 mg and 200 mg capsules).. 30 Cap 5 01/06/20 15 Active pregabalin (LYRICA) 200 MG capsuleIndications :Primary fibromyalgia Take by mouth. Take 100 mg qAM, 150 mg mid-afternoon, and 200 mg qHS (separate prescriptions provided for 100 mg and 150 mg capsules).. 30 Cap 5 01/06/20 15 Active risperiDONE (RisperDAL) 4 MG tablet 4 mg 1 time a day. Active HYDROcodone-acetam inophen (NORCO) 10-325 MG tabletIndications: Lumbar disc herniation,Localiz ed osteoarthritis of lumbar spine One po prn lumbar pain, up to every 12 hours. 60 Tab 0 08/08/19 16 Active Active Problems Problem Noted Date Diagnosed Date Vitamin D deficiency disease 05/11/2012 IBS (irritable bowel syndrome) 05/17/2010 Fatty liver disease, non-alcoholic 05/17/2010 PCOS (polycystic ovarian syndrome) 03/15/2010 Acanthosis nigricans 01/22/2010 Obesity 01/22/2010 Generalized pain 04/12/2009 Hypermobility syndrome 04/12/2009 Flat foot(734) 04/12/2009 Parasomnia 04/12/2009 Bipolar disorder 04/12/2009 Keratosis pilaris 04/12/2009 Generalized anxiety disorder 04/12/2009 Resolved Problems Problem Noted Date Diagnosed Date Resolved Date Hypovitaminosis D 04/13/2009 02/14/2014 Immunizations Immunization Administration Dates Next Due Influenza Vaccine 0.5 mL - f or patients 6 months and older 01/18/2014,03/09/2013,03/09/2011 Family History Medical History Relation Name Comments Abdominal Surgery in Childhood Maternal Aunt Aunts X 3 - Gall Bladder and Appendix Asthma Maternal Aunt Autoimmune Disease Maternal Aunt Rheumato id Arthritis Cancer Maternal Aunt Kidney & Bones Constipation Maternal Aunt Diabetes Maternal Aunt Gastroesophageal reflux Maternal Aunt X3 Irritable Bowel Syndrome Maternal Aunt Kidney Disease Maternal Aunt Thyroid Disease Maternal Aunt Anemia Maternal Grandfather Anemia Maternal Grandmother Asthma Maternal Grandmother Blood Problems Maternal Grandmother Bleed ing in Bowels Cancer Maternal Grandmother Kidney Constipation Maternal Grandmother Crohn's Disease Maternal Grandmother Grea t Grandmother Diabetes Maternal Grandmother Inflammatory Bowel Dz Maternal Grandmother Diverticulitis Intestinal Polyps Maternal Grandmother Gr eat Grandmother Irritable Bowel Syndrome Maternal Grandmother Kidney Disease Maternal Grandmother Tumor Ulcerative Colitis Maternal Grandmother Gastroesophageal reflux Maternal Uncle Anemia Mother Anxiety Mother Arthritis, Rheumatoid Mother Autoimmune Disease Mother Rheumatoi d Arthritis Blood Problems Mother Bleeding in B owels Constipation Mother Depression Mother Diabetes Mother Gastroesophageal reflux Mother Obesity/Overweight Mother Osteoarthritis Mother Other Mother PCOS Relation Name Status Comments Maternal Aunt Maternal Grandfather Maternal Grandmother Maternal Uncle Mother Social History Tobacco Use Types Packs/Day Years Used Date Smoking Tobacco: Never Comments Unknown Sex and Gender Information Value Date Recorded Sex Assigned at Not on file Legal Sex Female 5:23 AM EST Gender Identity Not on file Sexual Orientation Not on file Last Filed Vital Signs Vital Sign Reading Time Taken Comments Blood Pressure 121/59 08/08/2015 11:50 AM EDT Pulse 103 08/08/2015 11:50 AM EDT Temperature 36.8 C (98.2 F) 08/08/2015 11:50 AM EDT Respiratory Rate - - Oxygen Saturation - - Inhaled Oxygen Concentration - - Weight 119.4 kg (263 lb 3.7 oz) 08/08/2015 11:50 AM EDT Has a boot on Height 166 cm (5' 5.35 ) 08/08/2015 11: 50 AM EDT Body Mass Index 43.33 08/08/2015 11:50 AM EDT Plan of Treatment Health Maintenance Due Date Last Done Comments MMR IMMUNIZATION (1 of 1 - Standard series) 1994 DTAP/Tdap/Td IMMUNIZATION (1 - Tdap) 2000 VARICELLA IMMUNIZATION (1 of 2 - 13+ 2-dose series) 2006 HEPATITIS B IMMUNIZATION (1 of 3 - 19+ 3-dose series) 2012 HPV IMMUNIZATION (1 - 3-dose SCDM series) 2020 COVID-19 Vaccine ( - 2023-2 5 season) 2023 AMB SEASONAL FLU VACCINE (#1) 11/07/2024, 03/09/2013, 03/09/2011 HIB IMMUNIZATION Aged Out No longer e ligible based on patient's age to complete this topic IPV IMMUNIZATION Aged Out No longer e ligible based on patient's age to complete this topic MCV4 IMMUNIZATION Aged Out No longer eligible based on patient's age to complete this topic MENINGOCOCCAL B VACCINE Aged Out No l onger eligible based on patient's age to complete this topic PNEUMOCOCCAL IMMUNIZATION Aged Out No longer eligible based on patient's age to complete this topic Respiratory Syncytial Virus (RSV) <20mo Aged Out No longer eligible b ased on patient's age to complete this topic Insurance Member Subscriber Plan / Payer (Ef fective 2012-Present) Name:Kaitlynn Art Relation to Subscriber:Self Name:Kaitlynn Art Payer ID:[id number] (NAIC) Group ID:Not on file Type:HMO Medicaid Address: [place], [place] Member Subscriber Plan / Payer (Ef fective 2012-Present) Name:Kaitlynn Art Relation to Subscriber:Self Name:Kaitlynn Art Payer ID:[id number] (NAIC) Group ID:Not on file Type:HMO Medicaid Address: [place], [place] Care Teams Field Artillery Targeting Technician Relationship Specialty Start Date End Date Jeane Salter PA-C [facility] [address] [place] [address] PCP - General 12/22/12
--- OUTSIDE RECORDS SUMMARY | 2024-10-19 14:19 | XMS_ITS | Encounter Summary ---
Author Organization [facility] Address [address] [place] [address] Care Team Providers Care Mining Captain Name Role Phone Jeane Salter PA-C Primary Care Provider [phone] Reason for Visit * Reason Onset Date Comments Medication Adjustment 01/31/2013 Increase E rgocalciferol Encounter Details Date Type Department Care Team (Late st Contact Info) Description 01/31/2013 Clinical Note [facility] Division of Endocrinology [address] [place] [id number] Felicia Bender D.O. [address] [place] [address] Medication Adjustment (Increase Ergocalciferol) Social History Tobacco Use Types Packs/Day Years Used Date Smoking Tobacco: Never Comments Unknown Sex and Gender Information Value Date Recorded Sex Assigned at Not on file Legal Sex Female 5:23 AM EST Gender Identity Not on file Sexual Orientation Not on file documented as of this encounter Plan of Treatment Not on file documented as of this encounter Visit Diagnoses Diagnosis Hypovitaminosis D- Primary Unspecified vitamin D deficiency documented in this encounter Care Teams Mining Captain Relationship Specialty Start Date End Date Jeane Salter PA-C [address] [place] [address] PCP - General 12/22/12 documented as of this encounter
--- OUTSIDE RECORDS SUMMARY | 2024-10-19 14:19 | XMS_ITS | Clinical Summary ---
Author Organization [facility] Address [address], [address] [place] [address] Care Team Providers Care Acrobatic Rigger Name Role Phone Landy Linares MD Primary [...] Plan of Treatment Not on file Insurance [facility] Care Teams Acrobatic Rigger Relationship Specialty Start Date End Date Landy Linares MD [address] [place] [address] PCP - General 06/13/15
--- OUTSIDE RECORDS SUMMARY | 2024-10-19 14:19 | XMS_ITS | Encounter Summary ---
Author Organization [facility] Address [address] [place] [address] Care Team Providers Care Conductor Road Freight Name Role Phone Landy Linares MD Primary Care Provider Leticia Golden MD Primary Care Provider Reason for Referral * Consultation (Routine) - Closed Specialty Diagnoses / Procedures Referred By Contthomas t Referred To Contact Pain Management Diagnoses Neck pain of over 3 months duration Leticia Golden MD [address] [place] [address] Phone: tel: fax: [facility] [address] [place] [address], [address] [address] Phone: tel: fax: Referral ID Status Reason Start Date Expiration Date Visits Re quested Visits Authorized [id number] Closed 06/22/2017 06/22/2018 1 1 Encounter Details Date Type Department Care Team (Latest Contact Info) Description 06/22/2017 Transcribe Orders Patient Access Center [address] [place] [address] Leticia Golden MD [address] [place] [address] Neck pain of over 3 months [...] Primary documented in this encounter Care Teams Conductor Road Freight Relationship Specialty [place] [address] [place] [address] PCP - General Family Medicine 06/03/17 04/01/22 Leticia Golden MD [address] [place] [address] PCP - General Family Medicine 04/02/22 documented as of this encounter
--- OUTSIDE RECORDS SUMMARY | 2024-10-19 14:19 | XMS_ITS | Encounter Summary ---
Author Organization [facility] Address [address] [place] [address] Care Team Providers Care Helper Maintenance Cleaning Name Role Phone Landy Linares MD Primary Care Provider Leticia Golden MD Primary Care Provider Reason for Visit * Reason Onset Date Comments Referral Status 07/31/2017 EMG/NCV Ge 08/11/17@230pm Encounter Details Date Type Department Care Team (Late st Contact Info) Description 07/31/2017 Telephone [facility] [address] [place] [address], [address] [place] [phone] Tomas Solano MD [facility] [address] [facility] [address] [place] [address] Referral Status (EMG/NCV Ge 08/11/17@230pm) Social History [...] documented as of this encounter Care Teams Helper Maintenance Cleaning Relationship Specialty [place] [address] [place] [address] PCP - General Family Medicine 06/03/17 04/01/22 Leticia Golden MD [address] [place], [place] [address] [place] [address] PCP - General Family Medicine 04/02/22 documented as of this encounter
--- OUTSIDE RECORDS SUMMARY | 2024-10-19 14:19 | XMS_ITS | Patient Health Record ---
Author Organization [facility] Address [address] [place], [place] [address] Care Team Providers Care Tube Washer Name Role Phone Leticia Golden Primary Care Provider [phone] Yola Bustamante [phone] Allergies Allergen (clinical drug ingredient) Drug/Non Drug Allergy documented on EMR Reaction Allergy Type Onset Date Status allergy injections (uncoded) Unknown Allergy Active Results Component Value Reference Range Notes DRUG MONITORING TEMPLATE Reviewed date:05/30/2024 09:22:47 AM Interpretation: Performing Lab:[facility], [address] [place], [place] [id number] Jesus Carbone MD Notes/Report: Received Date: SPLIT 05/27/2024 FROM [id number] Notes and Comments [facility]. It has not been cleared or approved Confirmation tests were developed and their analytical by the FDA. This assay has been validated pursuant to the drug Hydromorphone. consistent with the use of the drug Hydrocodone. providers to render diagnosis or treatment, or to drug Pregabalin. Hydrocodone, Norhydrocodone, Hydromorphone detected is Healthcare Providers needing Interpretation assistance, metabolite of Hydrocodone. Opiates Notes: LDT Notes: monitor progress of medical conditions. the CLIA regulations and is used for clinical purposes. Analysis was performed as non-forensic testing and Hydromorphone can be a prescribed drug and is also a performance characteristics have been determined by M-F, 8am to 10pm EST Pregabalin detected is consistent with the use of the please contact us at [phone] ( ) Hydromorphone detected is consistent with the use of these results should be used only by healthcare This drug testing is for medical treatment only. Pregabalin Notes: DRUG MONITOR, PREGABALIN, QN , URINE Reviewed date:05/30/2024 09:22:31 AM Interpretation: Performing Lab:Q[facility], [facility] [place] [address], [address] [place] [address] Jesus Carbone MD Notes/Report: Received Date: [id number] SPLIT 05/27/2024 FROM [id number] Pregabalin >[id number] <1000 ng/mL Pregabalin Comments See Preg abalin Notes, LDT Notes DRUG MONITOR, PANEL 1, W/CON F, URINE Reviewed date:05/30/2024 09:22:24 AM Interpretation: Performing Lab:[facility], [facility] [place] [address], [address] [place] [address] Jesus Carbone MD Notes/Report: Received Date: [id number] SPLIT 05/27/2024 FROM [id number] Amphetamines NEGATIVE <500 ng/mL Barbiturates NEGATIVE <300 [...] pH 5.4 4.5-9.0 Oxidant NEGATIVE <200 mcg/mL TSH W/REFLEX TO FT4 Reviewed date:05/30/2024 09:22:47 AM Interpretation: Performing Lab:[facility], [facility] [place] [address], [address] [place], [place] [address] Jesus Carbone MD Notes/Report: Received Date: 0; 0; 0; 0; 0 MULTIPLE TESTING PRIORITIES; ROUTINE TESTING TO FOLLOW. TSH W/REFLEX TO FT4 1.38 Second trimester 0.55-2.73 > or = 20 Years 0.40-4.50 First trimester 0.26-2.66 Third trimester 0.43-2.91 Reference Range Ranges CBC (INCLUDES DIFF/PLT) Reviewed date:05/30/2024 09:22:47 AM Interpretation: Performing Lab:QPT, [facility] [place] [address], [address] [place], [place] [phone] Jesus Carbone MD Notes/Report: Received Date: 0; 0; 0; 0; 0 MULTIPLE TESTING PRIORITIES; ROUTINE TESTING TO FOLLOW. WHITE BLOOD CELL COUNT 7.3 3.8-10.8 Thousand/ uL RED BLOOD CELL COUNT 4.47 3.80-5.10 Million/uL HEMOGLOBIN 12.7 11.7-15.5 g/dL HEMATOCRIT 38.4 35.0-45.0 % MCV 85.9 80.0-100.0 fL MCH 28.4 27.0-33.0 pg MCHC 33.1 32.0-36.0 g/dL not clinically significant; however, it should be interpreted with caution in correlation with other condition. red cell parameters and the patient's clinical value (in the range of 30 to 32 g/dL) is most likely For adults, a slight decrease in the calculated MCHC RDW 12.8 11.0-15.0 % PLATELET COUNT 279 140-400 Thousand/uL MPV 11.4 7.5-12.5 fL ABSOLUTE NEUTROPHILS [phone] cells/uL ABSOLUTE LYMPHOCYTES 3504 850-3900 cells/uL ABSOLUTE MONOCYTES 489 200-950 cells/uL ABSOLUTE EOSINOPHILS 168 15-500 cells/uL ABSOLUTE BASOPHILS 73 0-200 cells/uL NEUTROPHILS 42 LYMPHOCYTES 48.0 MONOCYTES 6.7 EOSINOPHILS 2.3 BASOPHILS 1.0 COMPREHENSIVE METABOLIC PANE L Reviewed date:05/30/2024 09:35:13 AM Interpretation: Performing Lab:QPT, [facility] [place] [address], [address] [place], [place] [phone] Jesus Carbone MD Notes/Report: Received Date: 0; 0; 0; 0; 0 MULTIPLE TESTING PRIORITIES; ROUTINE TESTING TO FOLLOW. GLUCOSE 81 65-99 mg/dL Fasting reference interval UREA NITROGEN (BUN) 15 7-25 mg/dL CREATININE 0.91 0.50-0.97 mg/dL EGFR 87 > OR = 60 mL/min/1.73m2 BUN/CREATININE RATIO SEE NOTE: 6-22 (calc) reference range. Not Reported: BUN and Creatinine are within SODIUM 143 135-146 mmol/L POTASSIUM 4.1 3.5-5.3 mmol/L CHLORIDE 111 98-110 mmol/L CARBON DIOXIDE 26 20-32 mmol/L CALCIUM 9.2 8.6-10.2 mg/dL PROTEIN, TOTAL 6.9 6.1-8.1 g/dL ALBUMIN 4.5 3.6-5.1 g/dL GLOBULIN 2.4 1.9-3.7 g/dL (calc) ALBUMIN/GLOBULIN RATIO 1.9 1.0-2.5 (calc) BILIRUBIN, TOTAL 0.3 0.2-1.2 mg/dL ALKALINE PHOSPHATASE 25 31-125 U/L AST 14 10-30 U/L ALT 12 6-29 U/L REFLEXIVE URINE CULTURE Reviewed date:12/14/2023 10:21:32 AM Interpretation: Performing Lab:[facility], [facility] [address] Jesus Carbone MD Notes/Report: Received Date: [id number] SPLIT 12/11/2023 FROM [id number] REFLEXIVE URINE CULTURE NO C ULTURE INDICATED HCG,TOTAL,QL W/REFL TO QN Reviewed date:12/14/2023 10:22:39 AM Interpretation: Performing Lab:[employer] [facility] [address], [address] [place], [place] [phone] Jesus Carbone MD Notes/Report: Received Date: [id number] 0; 0; 0; 0 MULTIPLE TESTING PRIORITIES; ROUTINE TESTING TO FOLLOW. HCG, TOTAL, QL NEGATIVE See Note: : Positive Non-: Negative Reference Range: Reference Range URINALYSIS, COMPLETE W/REFLE X TO CULTURE Reviewed date:12/14/2023 10:21:22 AM Interpretation: Performing Lab:Q[facility], [facility] [address], [address] [place], [place] [phone] Jesus Carbone MD Notes/Report: Received Date: SPLIT 12/11/2023 FROM [id number] COLOR YELLOW YELLOW APPEARANCE CLEAR CLEAR SPECIFIC [...] HYALINE CAST NONE SEEN NONE SEEN /LPF CBC (INCLUDES DIFF/PLT) Reviewed date:12/14/2023 10:21:49 AM Interpretation: Performing Lab:Q[facility], [facility] [address], [address] [place], [place] [phone] Jesus Carbone MD Notes/Report: Received Date: 0; 0; 0; 0 MULTIPLE TESTING PRIORITIES; ROUTINE TESTING TO FOLLOW. WHITE BLOOD CELL COUNT 7.3 3.8-10.8 Thousand/ uL RED BLOOD CELL COUNT 4.94 3.80-5.10 Million/uL HEMOGLOBIN 14.0 11.7-15.5 g/dL HEMATOCRIT 42.8 35.0-45.0 % MCV 86.6 80.0-100.0 fL MCH 28.3 27.0-33.0 pg MCHC 32.7 32.0-36.0 g/dL value (in the range of 30 to 32 g/dL) is most likely interpreted with caution in correlation with other not clinically significant; however, it should be condition. red cell parameters and the patient's clinical For adults, a slight decrease in the calculated MCHC RDW 12.7 11.0-15.0 % PLATELET COUNT 285 140-400 Thousand/uL MPV 11.1 7.5-12.5 fL ABSOLUTE NEUTROPHILS 3227 6331-9876 cells/uL ABSOLUTE LYMPHOCYTES 3329 850-3900 cells/uL ABSOLUTE MONOCYTES 431 200-950 cells/uL ABSOLUTE EOSINOPHILS 263 15-500 cells/uL ABSOLUTE BASOPHILS 51 0-200 cells/uL NEUTROPHILS 44.2 LYMPHOCYTES 45.6 MONOCYTES 5.9 EOSINOPHILS 3.6 BASOPHILS 0.7 COMPREHENSIVE METABOLIC PANE L Reviewed date:12/14/2023 10:22:01 AM Interpretation: Performing Lab:QPT, [id number], [address] [facility] Jesus Carbone MD Notes/Report: Received Date: 0; 0; 0; 0 MULTIPLE TESTING PRIORITIES; ROUTINE TESTING TO FOLLOW. GLUCOSE 85 65-99 mg/dL Fasting referen ce interval UREA NITROGEN (BUN) 13 7-25 mg/dL CREATININE 0.80 0.50-0.97 mg/dL EGFR 102 > OR = 60 mL/min/1.73m2 BUN/CREATININE RATIO SEE NOTE: - (calc) Not Reported: BUN and Creatinine are [...] 16 10-30 U/L ALT 12 6-29 U/L Reason For Referral Reason Referral to dietitia n for improved nutrition and to evaluate unexplained weight loss Diagnosis 1 Weight loss, uninten tional (R63.4) Referral Organization [facility] Referring Provider First Name Leticia Referring Provider Last Name [place] Referring Provider Speciality General ph ysician Referred Provider Specialty Dietitian General Notes Leticia Golden 05:22:02 PM >Jeane Howard - see TE that I sent you, Portia Blair (Monae) 06/27/2024 09:58:25 AM >Per Katie Dennis at the Diatetic office of [facility] Jeane Howard only handles In-patient cases. [...] 4 MG/0.1ML as directed Nasally 2023 Active methylPREDNISolone 4 MG as directed Orally 025 Active Naloxone HCl 4 MG/0.1ML as directed Nasally 2023 Active Dicyclomine HCl 10 MG TAKE 2 CAPSULES BY MOUTH THREE TIMES DAILY; Duration: 90 Active Vitamin D (Ergocalciferol) 1.25 MG (62508 UT) TAKE ONE (1) CAPSULE EVERY WEEK; Duration: 28 Active Ondansetron HCl 4 MG 1 tablet Orally Once a day; Duration: 30 days Active Linzess 145 MCG 1 capsule at least 30 minutes before the first meal of the day on an empty stomach Orally Once a day Janette Edouard Active Pristiq 25 MG 1 tablet Orally Once a day Active Pregabalin 150 MG 1 capsule Orally Once a day; Duration: 30 days 10/06/2024 Active Pregabalin 100 MG 1 capsule Orally Once a day; Duration: 30 days 10/06/2024 Active Omeprazole 20 MG TAKE ONE (1) CAPSULE BY MOUTH ONCE DAILY 30 MINUTES BEFORE MORNING MEAL; Duration: 90 Active Vraylar 1.5 MG 1 capsule Orally Once a day; Duration: 30 days 05/27/2024 Active Pregabalin 200 MG 1 capsule 1 to 3 hours before bedtime Orally Once a day; Duration: 30 days 10/06/2024 Active Topiramate 100 MG 1 tablet Orally Once a day; Duration: 30 day(s) Active hydrOXYzine HCl 50 MG 1 tablet as needed Orally every 6 hrs; Duration: 90 days as needed Active Spiriva Respimat 1.25 MCG/ACT 2 puffs Inhalation Once a day; Duration: 90 days as needed Active Propranolol HCl 10 MG 1 tablet Orally three times a day; Duration: 90 days Active Wellbutrin 100 MG 1 tablet Orally once a day; Duration: 90 days Active HYDROcodone-Acetaminophen 10-325 MG 1 Oral every 8 hours; Duration: 30 days . 10/06/2024 Active Silver sulfADIAZINE 1 % APPLY TO AFFECTE D AREA ONCE DAILY NEEDED; Duration: 30 days Active Vitamin B-12 1000 MCG TAKE 1 TABLET BY MOUTH ONCE A DAY.; Duration: 30 Active Albuterol Sulfate (2.5 MG/3ML) 0.083% 3 [...] area Externally 4 times daily 07/02/2023 Active Social History Tobacco Use: Social History [...] (ex. student, retired, disabled, unpaid primary career advisor) In the past year, have you o [...] phone, visiting friends or family, going to oriental orthodox or club meetings) More than 5 times a week How stressed are you? Stress is when someone feels tense, nervous, anxious, or can\t sleep at night because their mind is troubled Very much In the past year have you sp ent more than 2 nights in a row in a longterm, care home, prison center, or juvenile correctional facility? No Are [...] Status Risk Notes Problem Obese class II (160997602254215) BMI 36.0-36.9,adult (Z68.36) 05/28/19 25 Active confirmed Problem Obese class II (517122644415876) BMI 37.0-37.9, adult (Z68.37) 09/02/19 25 Active confirmed Problem Obese class II (941417797341303) BMI 39.0-39.9,adult (Z68.39) 02/21/20 24 Active confirmed Problem Chronic pain (67819478) Other chronic pain (G89.29) Active confirmed Problem Fibromyalgia (547231820) Fibromyalgia (M79.7) Active confirmed Problem Morbid obesity (943257391) Morbid obesity (E66.01) Active confirmed Problem Polycystic ovary syndrome (disorder) (787761994) PCOS (polycystic ovarian syndrome) (E28.2) 03/15/19 11 Active confirmed Problem Uncomplicated mild persistent asthma (682051458) Mild persistent asthma without complication (J45.30) Active confirmed Problem Amenorrhea (66677396) Amenorrhea (N91.2) Active confirmed Problem Irritable bowel syndrome (32636166) IBS (irritable bowel syndrome) (K58.9) 05/18/19 11 Active confirmed Problem Osteoarthritis of knee (517451592) Primary osteoarthritis of both knees (M17.0) Active confirmed Problem Excessive and frequent menstruation (271704328) Menorrhagia with regular cycle (N92.0) Active confirmed Problem Gingivitis (13922269) Gingivitis (K05.10) Active confirmed Problem Gastroesophageal reflux disease (233533708) GERD without esophagitis (K21.9) Active confirmed Problem Moderate major depression, single episode (69723905) Moderate major depression, single episode (F32.1) Active confirmed Problem Body mass index 35.00 to 39.99 (597746779763510) Body mass index [BMI] 39.0-39.9, adult (Z68.39) Active confirmed Problem Body mass index 40+ - severely obese (660317106) Body mass index [BMI] 45.0-49.9, adult (Z68.42) Active confirmed Problem Body mass index 40+ - severely obese (228122996) Body mass index [BMI] 40.0-44.9, adult (Z68.41) Active confirmed Vital Signs Heart Rate 82 /min 08/30/2024 Respiratory Rate 20 /min 08/30/2024 Blood pressure diastolic 70 mm Hg 08/30/2024 Height-cm 167.64 cm 08/30/2024 Oximetry 97 % 05/27/2024 Weight-kg 105.23 kg 08/30/2024 Height 66 in 08/30/2024 Blood pressure systolic 106 mm Hg 08/30/2024 Weight 232 lbs 08/30/2024 BMI 37.44 kg/m2 08/30/2024 Encounters Encounter Location Date Provider Diagnosis [facility] [address] [place], [place] [id number] 12/11/2023 Leticia Golden Fibromyalgia M79.7 ; Other chronic pain G89.29 ; Left lower quadrant abdominal pain R10.32 and BMI 39.0-39.9,adult Z68.39 [facility] [address] [place], [place] [id number] 05/27/2024 Leticia Golden Fibromyalgia M79.7 ; Weight loss, unintentional R63.4 ; Other chronic pain G89.29 ; Long-term current use of opiate analgesic Z79.891 ; Mood disorder F39 and BMI 36.0-36.9,adult Z68.36 [facility] [address] [place] [id number] 08/30/2024 Leticia Golden Fibromyalgia M79.7 ; GERD without esophagitis K21.9 ; Mood disorder F39 ; Arthralgia of left knee M25.562 and BMI 37.0-37.9, adult Z68.[address] [place] [id number] 11/03/2023 Leticia Golden Other chronic pain G89.29 ; Fibromyalgia M79.7 ; Nausea and vomiting, unspecified vomiting type R11.2 and GERD without esophagitis K21.[address] [id number] 12/04/2023 Leticia Golden Fibromyalgia M79.7 ; Other chronic pain G89.29 ; GERD without esophagitis K21.9 and Nausea and vomiting, unspecified vomiting type R11.[address] [place] [id number] 12/14/2023 Leticialev Golden [address] [id number] 12/29/2023 Leticia Golden Fibromyalgia M79.7 ; Other chronic pain G89.29 ; GERD without esophagitis K21.9 and Nausea and vomiting, unspecified vomiting type R11.[address] [place] [id number] 02/01/2024 Leticialev Golden Other chronic pain G89.29 ; Fibromyalgia M79.7 ; GERD without esophagitis K21.9 and Nausea and vomiting, unspecified vomiting type R11.[address] [id number] 02/02/2024 Leticia Chico Long-term current us e of opiate analgesic Z79.[address] [place] [id number] 02/24/2024 eLticia Golden Other chronic pain G89.[address] [place] [id number] 04/04/2024 Yola Bustamante Other chronic pain G89.[address] [id number] 04/11/2024 Leticia Golden Fibromyalgia M79.7 and Other chronic pain G89.29 [facility] [address] [place], [place] [id number] 05/06/2024 Leticia Golden Other chronic pain G89.29 and Fibromyalgia M79.[address] [id number] 05/30/2024 Leticia Golden 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 [id number] 06/02/2024 Leticia Golden [address] [id number] 06/04/2024 Leticia Golden [address] [place] [id number] 06/06/2024 Leticia Golden GERD without esophagitis K21.[address] [id number] 06/24/2024 Leticia Golden Weight loss, unintentional R63.[address] [id number] 07/04/2024 Leticia Golden Other chronic pain G89.29 [facility] [address] [place], [place] [id number] 08/04/2024 Leticia Golden Other chronic pain G89.[address] [id number] 09/05/2024 Leticia Golden Mood disorder F39 ; GERD without esophagitis K21.9 and Other chronic pain G89.29 [facility] [address] [place], [place] [id number] 09/05/2024 Leticia Golden Other chronic pain G89.[address] [place] [id number] 10/04/2024 Leticia Golden Other chronic pain G89.29 ; GERD without esophagitis K21.9 ; Mood disorder F39 and Fibromyalgia M79.7 Assessments Encounter Date Diagnosis (ICD Code) Assessment Notes Treatment Notes Treatment Clinical Notes Section Notes 11/03/2023 Other chronic pain (ICD-10 - G89.29) [...] 09/05/2024 Other chronic pain (ICD-10 - G89.29) 10/04/2024 Other chronic pain (ICD-10 - G89.29) 09/05/2024 GERD without esophagitis (ICD-10 - K21.9) 10/04/2024 GERD without esophagitis (ICD-10 - K21.9) 08/30/2024 [...] - G89.29) 11/03/2023 Fibromyalgia (ICD-10 - M79.7) 11/03/2023 Nausea and vomiting, unspecified vomiting type (ICD-10 - R11.2) 12/04/2023 GERD without esophagitis (ICD-10 - K21.9) 12/11/2023 BMI 39.0-39.9,adult (ICD-10 - Z68.39) 02/01/2024 GERD without esophagitis (ICD-10 - K21.9) 10/04/2024 Mood disorder (ICD-10 - F39) 08/30/2024 Arthralgia of left knee (ICD-10 - M25.562) 09/05/2024 Other chronic pain (ICD-10 - G89.29) 05/27/2024 Long-term current use of opiate analgesic (ICD-10 - Z79.891) 12/29/2023 GERD without esophagitis (ICD-10 - K21.9) 12/29/2023 Nausea and vomiting, unspecified vomiting type (ICD-10 - R11.2) 05/27/2024 Mood disorder (ICD-10 - F39) 10/04/2024 Fibromyalgia (ICD-10 - M79.7) 02/01/2024 Nausea and vomiting, unspecified vomiting type (ICD-10 - R11.2) 12/04/2023 Nausea and vomiting, unspecified vomiting type (ICD-10 - R11.2) 11/03/2023 GERD without esophagitis (ICD-10 - K21.9) 08/30/2024 BMI 37.0-37.9, adult (ICD-10 - Z68.37) 05/27/2024 BMI 36.0-36.9,adult (ICD-10 - Z68.36) Plan Of Treatment Pending Test Test Name Order Date CELIAC DISEASE COMPREHENSIVE PANEL 05/30 MAGNESIUM 05/30/2024 PHOSPHATE ( PHOSPHORUS) 05/30/2024 ZINC 05/30/2024 COPPER 05/30/2024 Next Appt Details Provider Name:Leticia Stafford in, 11/25/2024 11:00:00 AM, [address], [place], [place], [id number], Insurance Providers Payer Name Payer Address Payer Phone Subscriber Number Group Number Insured Name Patient Relationship to Insured Coverage Start Date Coverage End Date [employer] [place] [employer] [address] [address] [place] [address] [id number] YO WHITAKER Self - patient is the insured 2 [place] [employer] [address] [place] [address] [id number] RUT MANYO Self - patient is the insured 3 Sliding Fee Scale B [place] slide B RUT MAN, YO Self - patient is the insured 2 Medications Administered Medication Instructions Date of Administration Dosage Notes Ketorolac Tromethamine per 15 mg [id number] 03/13/2022 60 mg Pt janee [facility] (General) History Medical History History ICD Code depression anxiety migraines vitamin d def acid reflux alopecia fibromyalgia Surgical History Surgery Date(Month/Year) tendonitis surgery Hospitalization History Reason Date(Month/Year)
--- OUTSIDE RECORDS SUMMARY | 2024-10-19 14:19 | XMS_ITS | Clinical Summary ---
Author Organization [facility] Address [address] [place] [address] Care Team Providers Care Casing Grader Name Role Phone Leticia Golden MD Primary Care Provider [phone] Source Comments This information has been disclosed [...] therelease of HIV test results or diagnoses. [id number] Medications No known medications Social History Tobacco Use Types Packs/Day Years Used Date Smoking Tobacco: Never Assessed Comments Unknown Sex and Gender Information Value Date Recorded Sex Assigned at Not on file Legal Sex Female 11:06 AM EDT Gender Identity Not on file Sexual Orientation Not on file Plan of Treatment Not on file Insurance [facility] Care Teams Casing Grader Relationship Specialty Start Date End Date Leticia Golden MD [address] [place] [address] PCP - General 10/30/20
--- OUTSIDE RECORDS SUMMARY | 2024-10-19 14:19 | XMS_ITS | Clinical Summary ---
Author Organization Healthcare Address [address] [place] [address] Care Team Providers Care Geosciences Professor Name Role Phone Unavailable Primary Care Provider Unavailabl e Encounters Date Type Department Care Team Description 09/05/2024 Lab Requisition [facility] Oral Pathology [address] [place] [address] Mikel Aly, SHANNA Benign neoplasm of bone and articular cartilage, unspecified from Last 3 Months Family History Medical [...] EST Plan of Treatment Not on file Procedures Procedure Name Priority Date/Time Associated Diagnosis Comments ACCESSION OF TISSUE, GROSS AND MICROSCOPIC EXAMINATION, PREPARATION AND TRANSMISSION OF WRITTEN REPORT Routine 09/01/2024 Benign neoplasm of bone and articular cartilage, unspecified from Last 3 Months Results * Oral Pathology Exam (09/01/2024) Gross Description A. Mandible, Area of No. 17 The gross examination on September 05 reveals multiple pieces of denton hard tissue measuring 0.8x0.7x0.4 cm. The entire specimen was submitted for microscopic examination after decalcificatio n. A request for this from the treating clinician accompanied the specimen. 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 09/12/2024 11:05 AM [facility] ORAL PATHOLOGY Microscopic Description Microscopic examination reveals H&E stained and decalcified sections of dense viable bone with minimal fibrous connective tissue. 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
--- OUTSIDE RECORDS SUMMARY | 2024-10-19 14:19 | XMS_ITS | Clinical Summary ---
Author Organization [facility] Address [address] [place] [address] Care Team Providers Care Junior Loan Processor Name Role Phone Leticia Golden MD Primary Care Provider Allergies Active Allergy Reactions Criticality Noted Date [...] complete this topic Insurance [place] [address] Care Teams Junior Loan Processor Relationship Specialty Start Date End Date Leticia Golden MD [address] [place], [place] [address] [place] [address] PCP - General Family Medicine 04/02/22
--- OUTSIDE RECORDS SUMMARY | 2024-10-19 14:20 | XMS_ITS | Encounter Summary ---
Author Organization Healthcare Address [address] [place] [address] Care Team Providers Care [employer] Social Studies Tutor Name Role Phone Unavailable Primary Care Provider Unavailabl e Encounter Details Date Type Department Care Team (Late st Contact Info) Description 09/05/2024 Lab Requisition [facility] Oral Pathology [address] [place] [address] Mikel Aly, DMD [address] [place] [address] Benign neoplasm of bone and articular cartilage, unspecified Social History Tobacco Use Types Packs/Day Years [...] on file documented as of this encounter Procedures Procedure Name Priority Date/Time Associated Diagnosis Comments ACCESSION OF TISSUE, GROSS AND MICROSCOPIC EXAMINATION, PREPARATION AND TRANSMISSION OF WRITTEN REPORT Routine 09/01/2024 Benign neoplasm of bone and articular cartilage, unspecified documented in this encounter Results * Oral Pathology Exam (09/01/2024) Gross Description A. Mandible, Area of No. 17 The gross examination on September 05 reveals multiple pieces of denton hard tissue measuring 0.8x0.7x0.4 cm. The entire specimen was submitted for microscopic examination after decalcificatio n. A request for this from the treating clinician accompanied the specimen. 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 09/12/2024 11:05 AM [facility] ORAL PATHOLOGY Microscopic Description Microscopic examination reveals H&E stained and decalcified sections of dense viable bone with minimal fibrous connective tissue. 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 ORAL PATHOLOGY at 1105 EDT Tissue Bone structure of mandible / Unknown 09/01/2024 09/05/2024 10:29 AM EDT us Mikel Aly DMD LAB PATHOLOGY ORDERABLES Fi nal Result [facility] ORAL PATHOLOGY [address] [facility] Room [place] [id number] documented in this encounter Visit Diagnoses Diagnosis Benign neoplasm of bone and articular cartilage, unspecified documented in this encounter
--- NOTE | 2024-10-19 14:46 | EXP.PAIN.SOA ---
[facility] Disclaimer: The information contained in this section may have been updated after the patient was seen, as this information can be updated by other users. Medical History Migraine Diabetes CRPS (complex regional pain syndrome type I) Social History Smoking Status: Unknown if ever smoked alcohol intake: never current occupational status: other Travel in the last 8 weeks?: None PM Subjective & Objective Subjective Subjective:: Patient is a pleasant 29-year-old female who presents today for follow-up and worsening low back pain. She rates it a 5 out of 10. She denies any new trauma or injury. She states the pain is still there in her low back that does radiate down her bilateral legs. She does state that she has been discharged for physical therapy and they were also recommending her to be sent to a neurosurgeon due to the worsening pain symptoms. Patient states she did not notice any improvement whatsoever. Patient is currently managed with methocarbamol 1000 mg 3 times a day from our office. She denies any side effects. Her Shamar has been reviewed and is appropriate. Review of Systems: General: No recent weight changes, no fever, no sleep disturbances Respiratory: No cough, no shortness of air, no recurring pulmonary infections Cardiovascular/peripheral vascular: No chest pain, no palpitations, no edema, no shortness of breath Gastrointestinal: No new onset incontinence, normal bowel movements reported Genitourinary: No new onset incontinence Musculoskeletal: Low back pain, leg pain Psychiatric: [Normal mood/affect] Neurological: [Denies weakness in extremities], [denies balance issues] Pain at rest (0-10 scale): 5 Objective Objective:: Physical Exam: General: Alert and oriented x3, no acute distress, pleasant and cooperative Lungs: Respirations even and unlabored, symmetrical chest expansion Eyes: PERRL Musculoskeletal: Flexion and extension of lumbar [spine] somewhat guarded secondary to pain, [antalgic gait noted] Neurological: Speech clear, no gross sensory deficit Has patient had previous pain injection?: No Conservative treatment options previously tried: Home exercise plan Length of treatment: Longer than 12 weeks Meds Home Medications and Allergies Home Medications ?Medication ?Instructions ?Recorded ?Confirmed ?Type albuterol sulfate 2.5 mg/3 mL 2.5 mg inhalation DAILY PRN SOB 04/06/23 09/06/24 History (0.083 %) solution for nebulization albuterol sulfate 90 mcg/actuation 2 puff inhalation QID 04/06/23 09/06/24 History aerosol inhaler (Ventolin HFA) budesonide-formoterol HFA 160 2 puff inhalation BID 04/06/23 09/06/24 History mcg-4.5 mcg/actuation aerosol inhaler (Symbicort) bupropion HCl 100 mg tablet,12 hr 100 mg PO DAILY 04/06/23 09/06/24 History sustained-release cyclobenzaprine 10 mg tablet 10 mg PO TID 04/06/23 09/06/24 History desvenlafaxine succinate 50 mg 50 mg PO DAILY 04/06/23 09/06/24 History tablet,extended release 24 hr hydrocodone 5 mg-acetaminophen 325 1 tab PO Q4H PRN Pain 04/06/23 09/06/24 History mg tablet hydroxyzine HCl 50 mg tablet 50 mg PO HS 04/06/23 09/06/24 History ibuprofen 400 mg tablet 400 mg PO TIDP PRN Pain 04/06/23 09/06/24 History levocetirizine 5 mg tablet 5 mg PO DAILY 04/06/23 09/06/24 History metformin 500 mg tablet 500 mg PO QID 04/06/23 09/06/24 History methenamine mandelate 1 gram tablet 1 g PO BID 04/06/23 09/06/24 History omeprazole 40 mg capsule,delayed 40 mg PO BID 04/06/23 09/06/24 History release ondansetron 4 mg disintegrating 4 mg PO Q6H PRN Nausea 04/06/23 09/06/24 History tablet pregabalin 100 mg capsule 100 mg PO DAILY 04/06/23 09/06/24 History pregabalin 150 mg capsule 150 mg PO DAILY 04/06/23 09/06/24 History pregabalin 200 mg capsule 200 mg PO HS 04/06/23 09/06/24 History propranolol 10 mg tablet 10 mg PO BID 04/06/23 09/06/24 History tiotropium bromide 1.25 2 puff inhalation BID 04/06/23 09/06/24 History mcg/actuation mist for inhalation topiramate 100 mg tablet 100 mg PO DAILY 04/06/23 09/06/24 History baclofen 10 mg tablet See Rx Instructions .Route 02/11/24 09/06/24 Rx .COMPLEX #90 tabs methocarbamol 500 mg tablet 500 mg PO TID #90 tabs 05/05/24 09/06/24 Rx cariprazine 1.5 mg capsule 1.5 mg PO DAILY 06/02/24 09/06/24 History (Vraylar) methocarbamol 750 mg tablet 750 mg PO TID #90 tabs 06/02/24 09/06/24 Rx New Prescriptions to Start Prescriptions: Allergies Allergy/AdvReac Type Severity Reaction Status Date / Time amoxicillin AdvReac Vomiting Verified 06/09/23 13:01 ampicillin AdvReac Verified 06/09/23 13:01 clarithromycin AdvReac Vomiting Verified 06/09/23 13:01 clavulanic acid AdvReac Vomiting Verified 06/09/23 13:01 erythromycin base AdvReac Verified 06/09/23 13:01 potassium AdvReac Vomiting Verified 06/09/23 13:01 sulfamethoxazole AdvReac Verified 06/09/23 13:01 Assessment and Plan *Assessment and plan (1) Lumbar radiculopathy: Status: Acute Category: Medical Code(s): M54.16 - Radiculopathy, lumbar region (2) Bilateral sacroiliitis: Status: Acute Category: Medical Code(s): M46.1 - Sacroiliitis, not elsewhere classified (3) Low back pain: Status: Acute Qualifiers: Chronicity: chronic Back pain laterality: bilateral Sciatica presence: without sciatica Qualified Code(s): M54.50 - Low back pain, unspecified; G89.29 - Other chronic pain Category: Medical Code(s): M54.50 - Low back pain, unspecified Plan I did discuss with the patient that I will go ahead and resubmit for the MRI now that she has completed physical therapy with no additional changes. I did also counseled the patient that most likely before she can be sent to neurosurgery for consult she will need the advanced imaging. We will follow-up with her in 1 month following this imaging with the results. Patient agrees with this plan of care. Patient has been instructed to contact the clinic with any concerns before the next appointment. Dr. Lindsey has reviewed this note and agrees with this plan of care. This note was dictated using voice recognition software and make contain errors or omissions. All injections are used with Lidocaine, Bupivacaine and dexamethasone. Occasionally urine drug screen is needed to verify patient's compliance with our office pain contract. This is ordered based off specific treatments related to chronic pain with the potential to abuse certain medications.
[2024-10-19 15:00] VITALS: BP 106/70; PULSE 76; RESP 18; O2SAT 97; BMI 38.7
== END 2024-10-19 23:59 | disposition home or self-care (01) ==
LOC: SC.PAIN 14:17
PROVIDERS: Visit Provider Nurse Practitioner Family
DX: M54.16 Radiculopathy, lumbar region (principal); M46.1 Sacroiliitis, not elsewhere classified; Z79.899 Other long term (current) drug therapy
CPT/HCPCS: 99212; G0463